=== PATIENT | female | born 1980 | race Two or more races ===

== ENCOUNTER 2017-04-21 16:44 | Emergency (ER) | payer MEDICARE, OTHER ==
[~2017-04-21 16:44] MED LIST: ALPR0.5T PO; AMIT50TA PO; AMITRIPTYLINE PO; ATOR20TA PO; BUPR100T7 PO; BUSP5TAB PO; CELE100C PO; CETI10TA22 PO; CHOL100017 PO; CHOL500016 PO; CLARITIN PO; CYCL-331 PO; CYMBALTA PO; DIAZ5TAB PO; DIPH25CA58 PO; DOCU-109 PO; DULO60CA6 PO; ESOM40CA PO; ESZO1TAB8 PO; ESZO3TAB28 PO; FEXO180T81 PO; GABA800T2 PO; HYDR-79 PO; HYDR1TAB12 PO; HYDR453.3 TP; HYDR45CR TP; HYDR50TA PO; LEVE500T56 PO; LEVO100T PO; LEVO175T5 PO; LEVO200T PO; LIDO700A4 TP; LISI-338 PO; LISI10TA2 PO; LISI1TAB3 PO; METF500T4 PO; MORP15TA PO; MORP30TA83 PO; NICO1PAT21 TD; ORPH-16 PO; OXYC-323 PO; PATADAY OP; POLY17PO5 PO; PRAZ5CAP PO; PRAZ5CAP2 PO; PROC10TA PO; PROC10TA57 PO; PROM50SU6 RC; PROP15DR40 EACHEYE; RANI150T6 PO; REFRESH PLUS OP; SENN8.6T99 PO; SIMV20TA PO; SULF1TAB24 PO; SUMA25TA3 PO; SYNTHROID PO; TAMS0.4C97 PO; TIZA4TAB PO; TOPI100T42 PO; TRIA15CR50 TP; VENL150C PO; VITAMIN D3 PO; WARF1TAB7 PO; WARF1TAB74 PO; WARF2TAB7 PO; WARF6TAB7 PO; ZOLP5TAB PO; [UNRECOGNIZED DRUG - CODE] PO; norflex PO
--- NOTE | 2017-04-21 17:13 | PHYS DOC ---
Past History Past Medical History: Cancer, Diverticulitis, Diabetes, High Cholesterol, Hypertension, Migraines, Seizure, UTI, Other Additional Past Medical Histor: chronic right upper extremity edema, chronic elevated CK Past Surgical History: Colectomy, Hysterectomy, Oophorectomy, Other Smoking: Less than 1pk/day Alcohol Use: None Drug Use: Marijuana Adult General Chief Complaint Chief Complaint: ABDOMINAL PAIN HPI HPI This is a pleasant 37-year-old female who suffered from a history of thyroid cancer required chemotherapy radiation therapy local excision, ovarian cancer requiring localization total abdominal hysterectomy and chemotherapy, and brain cancer that required local excision. She's also had a history of diabetes, Marfucci Syndrome, chronic intermittent migraines, chronic abdominal pain with radiculitis and local bowel resection, seizure disorder on Topamax, she is also had a history of pulmonary embolism presently on daily Coumadin therapy and daily marijuana abuse. She presents today with right lower left lower quadrant abdominal pain it's progressively gotten worse over last 3 days. With her history of diverticulitis with local bowel resection after speaking with her GI doctor who could not get her until June, patient decided to come into the ER to see if that she be evaluated for her abdominal pain. She denies any nausea, vomiting, diarrhea or fevers. She has had some subjective chills and increasing pain with movements of the lower abdomen and food. She denies any UTI symptoms like dysuria urgency or frequency. She denies any sick contacts, trauma, antibiotic use, recent consumption of raw food, handling of poultry or reptiles. my abdominal pain differential includes but not limited to ectopic , UTI, pyonephritis, cholecystitis, cholelithiasis, pancreatitis, appendicitis, small bowel obstruction, large bowel obstruction, diverticulosis, Diverticulum, intussusception, volvulus, irritable bowel disease, Crohn's or ulcerative colitis, considered upon arrival. Review of Systems Review of Systems Constitutional: Denies fever does describe some chronic chills. Eyes: Denies change in visual acuity, redness, or eye pain [] HENT: Denies nasal congestion or sore throat [] Respiratory: Denies cough or shortness of breath [] Cardiovascular: No additional information not addressed in HPI [] GI: Patient complains of lower abdominal pain, no nausea no vomiting no diarrhea no loose stools. : Denies dysuria or hematuria [] Musculoskeletal: She complains of chronic lymphedema of her lower and upper legs and arms. Integument: Denies rash or skin lesions [] Neurologic: Denies headache, focal weakness or sensory changes [] Endocrine: Denies polyuria or polydipsia [] Allergies Allergies Allergies Coded Allergies Type Severity Reaction Last Updated Verified Cephalexin Monohydrate Allergy Intermediate 09/25/15 Yes enoxaparin sodium Allergy Intermediate 09/25/15 Yes Physical Exam Physical Exam Constitutional: Well developed, well nourished, patient somewhat obese in no acute distress nontoxic in appearance. She has considerable lymphedema of the right upper extremity and lower extremities bilaterally. HENT: Normocephalic, atraumatic, bilateral external ears normal, oropharynx moist, no oral exudates, nose normal. [] Eyes: PERRLA, EOMI, conjunctiva normal, no discharge. [] Neck: Normal range of motion, no tenderness, supple, no stridor. [] Cardiovascular:Heart rate regular rhythm, no murmur [] Lungs & Thorax: Bilateral breath sounds clear to auscultation [] Abdomen: He does have marked tenderness to palpation of the right lower and left lower quadrants lower abdomen. There is no masses no pulsatile masses no guarding rebound or organomegaly. Skin: Warm, dry, no erythema, no rash. [] Back: No tenderness, no CVA tenderness. [] Extremities: No tenderness, no cyanosis, no clubbing, ROM intact, patient indicates lymphedema of the right upper extremity and lower extremity's bilaterally. Her skin is warm with brisk capillary refill +2 peripheral pulses also brisk at +2. Neurologic: Alert and oriented X 3, normal motor function, normal sensory function, no focal deficits noted. [] Psychologic: Affect normal, judgement normal, mood normal. Patient seems somewhat slow to respond to questions although she is very lucid. EKG EKG [] Radiology/Procedures Radiology/Procedures [] Course & Med Decision Making Course & Med Decision Making Pertinent Labs and Imaging studies reviewed. (See chart for details) she presents with lower abdominal pain progressive over the last 3 days or chills and increasing pain with food. With her history of diverticulitis she will need to have a screening appropriate for that etiology. She has had her labs drawn her CT scan has been completed but no other information is return. Care will be turned over to the oncoming physician Dr. Araujo. He see her notes for disposition. : Pt's CT showed multiple fluid filled bowel loops. although radiology states this could be nonspecific or bowel obstruction, her hx is more consistent with diarrhea and colitis causing fluid filled loops. she states she has had 4-5 watery stools. "everytime I eat it goes right through me and makes me cramp". she has a hx of diverticulitis. will start abx. if her bowels stop , abdomen distends, vomiting starts, fever, or any worsening sx, she has been obstructed to return immediately for re-evaluation. she voices understanding of this plan. pt's symptoms had improved prior to discharge [] Dragon Disclaimer Dragon Disclaimer This chart was dictated in whole or in part using Voice Recognition software in a busy, high-work load, and often noisy Emergency Department environment. It may contain unintended and wholly unrecognized errors or omissions. Departure Departure: Impression: Primary Impression: Diarrhea Disposition: HOME, SELF-CARE Condition: IMPROVED Referrals: LEIGH COLLINS (PCP) Patient Instructions: Diarrhea Additional Instructions: eat bland foods such as, chicken broth, apple sauce, bread, bananas, rice. no spicy, fried, greasy foods until diarrhea stops. cipro and flagyl for stomach. zofran for nausea and hydrocodone for pain. return immediately if fever, vomiting, abdominal swelling, or any other concerns. call your doctor today for a follow-up appointment in 3-4 days. Scripts Metronidazole (FLAGYL) 500 Mg Tablet 1 TAB PO BID, #14 TAB Prov: SUSANA ARAUJO MD 04/21/17 Ondansetron (ZOFRAN ODT) 4 Mg Tab.rapdis 1 TAB SL Q8HRS, #15 TAB Prov: SUSANA ARAUJO MD 04/21/17 Hydrocodone Bit/Acetaminophen (HYDROCODONE-APAP 7.5-325 ) 1 Each Tablet 1 TAB PO PRN Q6HRS Y for PAIN, #20 TAB 0 Refills Prov: SUSANA ARAUJO MD 04/21/17 Ciprofloxacin Hcl (CIPRO) 500 Mg Tablet 1 TAB PO BID, #14 TAB Prov: SUSANA ARAUJO MD 04/21/17 ARMINDA REZA MD Apr 21, 2017 17:13 SUSANA ARAUJO MD Apr 21, 2017 18:39
[2017-04-21] MEDS ORDERED: 0.9 % SODIUM CHLORIDE 10 ML DISP.SYRIN. IV PRN (17:15)
[2017-04-21] MEDS ORDERED: fentaNYL PF 100 MCG/2 ML VIAL IV PRN (17:15)
[2017-04-21] MEDS ORDERED: IV NORMAL SALINE 1,000ML 1,000 ML IV SCH (17:25)
[2017-04-21] MEDS ORDERED: ONDANSETRON PF 4 MG/2 ML VIAL. IV ONE (17:25)
[2017-04-21 17:32] LABS: BASO % 0 % (0-3); EOS # 0.3 x10^3/uL (0.0-0.7); EOS % 2 % (0-3); HEMOGLOBIN 13.1 g/dL (12.0-15.5); LYMPH % 29 % (24-48); MEAN CORPUSCULAR HEMOGLOBIN 30 pg (25-35); MEAN CORPUSCULAR HGB CONC 34 g/dL (31-37); MEAN CORPUSCULAR VOLUME 90 fL (79-100); MONO # 0.8 x10^3/uL (0.0-1.1); MONO % 6 % (0-9); NEUT # 8.6 x10^3uL (1.8-7.7); NEUT % 63 % (31-73); PLATELET COUNT 297 x10^3/uL (140-400); RED BLOOD COUNT 4.35 x10^6/uL (3.50-5.40); RED CELL DISTRIBUTION WIDTH 15.5 % (11.5-14.5); WHITE BLOOD COUNT 13.6 x10^3/uL (4.0-11.0)
[2017-04-21 17:41] LABS: ALBUMIN 3.5 g/dL (3.4-5.0); CALCIUM 8.7 mg/dL (8.5-10.1); DIRECT BILIRUBIN 0.1 mg/dL (0.0-0.2); GFR 62.7; POTASSIUM 3.6 mmol/L (3.5-5.1); TOTAL BILIRUBIN 0.2 mg/dL (0.2-1.0); TOTAL PROTEIN 7.7 g/dL (6.4-8.2)
[2017-04-21] MEDS ORDERED: CONTRAST GIVEN MC PRN (17:45)
[2017-04-21] MEDS ORDERED: IOHEXOL 300 MG/ML 75 ML VIAL. IV ONE (17:45)
[2017-04-21 18:01] LABS: AMPHETAMINE/METHAMPHETAMINE NEG (NEG); BARBITURATES NEG (NEG); BENZODIAZEPINES POS (NEG); CANNABINOIDS POS (NEG); COCAINE NEG (NEG); METHADONE NEG (NEG); OPIATES NEG (NEG); PHENCYCLIDINE NEG (NEG)
[2017-04-21 18:09] LABS: BACTERIA,URINE 0 /HPF (0-FEW); BILIRUBIN,URINE NEG (NEG); CLARITY,URINE CLEAR; COLOR,URINE YELLOW; GLUCOSE,URINE NEG (NEG); NITRITE,URINE NEG (NEG); RBC,URINE RARE /HPF (0-2); SQUAMOUS EPITHELIAL CELL,UR FEW /LPF; UROBILINOGEN,URINE 0.2 mg/dL (0.2 mg/dL)
--- NOTE | 2017-04-21 18:15 | RAD ---
Indication: Ovarian carcinoma. Patient currently complains of right lower quadrant pain for 3 days as well as low-grade fever. Axial imaging through the abdomen and pelvis was performed after the administration of intravenous contrast. One or more of the following individualized dose reduction techniques were utilized for this examination: 1. Automated exposure control 2. Adjustment of the mA and/or kV according to patient size 3. Use of iterative reconstruction technique Comparison is made with prior CT from 09/25/2015. Imaging through the lung bases does show several noncalcified nodules, all appear similar to prior exam. There is generalized low density throughout the liver consistent with fatty infiltration. No discrete mass is detected. The gallbladder is surgically absent. The pancreas and spleen are unremarkable. Minimal nodularity involving the left adrenal gland appears stable. There is also some nodularity of the right adrenal gland appears to be fairly stable. The kidneys are unremarkable. Aorta is nonaneurysmal. Postsurgical changes involving several bowel loops in the midline of the mid abdomen are noted and similar to prior exam. There is some mild fluid-filled distention of several small bowel loops in the central abdomen. This is nonspecific. There is no ascites. No free air or fluid collection is identified. Mild nonspecific inflammatory stranding in the right abdomen and right perirenal region is similar to prior exam. The bladder is unremarkable. No definite abdominal or pelvic lymphadenopathy is seen. IMPRESSION: There is mild fluid-filled distention of small bowel loops in the central abdomen. Early small bowel obstruction cannot be entirely excluded and continued progress films are recommended. There is no free air, bowel wall thickening or abscess identified. Electronically signed by: Chandana Washington MD (04/21/2017 6:12 PM) [facility]
[2017-04-21] MEDS ORDERED: HYDR-2762 PO (18:39)
[2017-04-21] MEDS ORDERED: METR500T PO (18:39)
[2017-04-21] MEDS ORDERED: ONDA4TAB10 SL (18:39)
[2017-04-21] MEDS ORDERED: CIPR500T94 PO (18:39)
[2017-04-21 18:54] VITALS: BP 110/76
== END 2017-04-21 18:59 | disposition home or self-care (01) ==
LOC: ER 16:44
DX: R19.7 Diarrhea, unspecified (principal); E11.9 Type 2 diabetes mellitus without complications; E78.00 Pure hypercholesterolemia, unspecified; I10 Essential (primary) hypertension; G89.29 Other chronic pain; G40.909 Epilepsy, unspecified, not intractable, without status epilepticus; F12.10 Cannabis abuse, uncomplicated; Z85.850 Personal history of malignant neoplasm of thyroid; Z86.711 Personal history of pulmonary embolism; F17.200 Nicotine dependence, unspecified, uncomplicated; Z88.1 Allergy status to other antibiotic agents; Z88.8 Allergy status to other drugs, medicaments and biological substances
CPT/HCPCS: 99285; J2405; J3010; 36415; 74177; 80048; 80076; 80307; 81001; 83605; 83690; 85027; 96361; 96374; 96375; Q9967; G0479; J7030

== ENCOUNTER 2017-04-24 10:08 | Inpatient (IN) | payer MEDICARE, OTHER ==
[~2017-04-24] VITALS: Ht 170.2 cm; Wt 108.5 kg
[~2017-04-24 10:08] MED LIST changes: +CIPR500T94 PO; +HYDR-2762 PO; +METR500T PO; +ONDA4TAB10 SL
--- NOTE | 2017-04-24 10:50 | PHYS DOC ---
Past History Past Medical History: Other Additional Past Medical Histor: chronic right upper extremity edema, chronic elevated CK Past Surgical History: Other Smoking: Less than 1pk/day Alcohol Use: Occasionally Drug Use: None Adult General Chief Complaint Chief Complaint: ABDOMINAL PAIN HPI HPI Patient is a 37-year-old female with a history of colon resection for diverticulitis in 2010, returns to the ED with continued abdominal pain after being seen and treated on 04/21. That day, she was seen with the complaint of 3 days of left lower quadrant abdominal pain getting worse, she was evaluated and started on Cipro and Flagyl. She did start the antibiotics that night and has taken them as directed on 04/22 and 04/23. She's had nausea but no vomiting. Her pain is getting worse and now its more generalized. She did have pain more in the suprapubic and left lower quadrant area and now has pain across her lower abdomen and across her upper abdomen. The pain does feel like diverticulitis to her. She also has noted "pus" in her stool. Patient has had hysterectomy and BSO. Patient takes warfarin for history of DVT and PE Patient gets her chronic care at [facility]. Review of Systems Review of Systems Constitutional: She has had chills Respiratory: Denies cough or shortness of breath [] Cardiovascular: Denies chest pain GI: As in history of present illness : Denies stability of Musculoskeletal: Denies back pain or joint pain [] Integument: Denies rash or skin lesions [] Neurologic: Denies headache, focal weakness or sensory changes [] Current Medications Current Medications Current Medications Medications (Trade) Dose Ordered Sig/Pau Start Time Stop Time Status Last Admin Dose Admin Fentanyl Citrate (Fentanyl 2ml Vial) 50 mcg PRN Q15MIN PRN 04/24/17 10:45 04/25/17 10:44 Sodium Chloride 1,000 ml @ 100 mls/hr Q10H 04/24/17 10:33 04/24/17 20:32 Allergies Allergies Allergies Coded Allergies Type Severity Reaction Last Updated Verified Cephalexin Monohydrate Allergy Intermediate 09/25/15 Yes enoxaparin sodium Allergy Intermediate 09/25/15 Yes Physical Exam Physical Exam Constitutional: Obese female, alert, mentating normally, vital signs stable, no acute distress HENT: Normocephalic, atraumatic, bilateral external ears normal, nose normal. [ ] Eyes: conjunctiva normal, no discharge. [] Neck: Normal range of motion, no stridor. [] Cardiovascular:Heart rate regular rhythm, no murmur [] Lungs & Thorax: Bilateral breath sounds clear to auscultation [] Abdomen: Bowel sounds normal, soft, nondistended, no masses, no pulsatile masses. Tenderness to palpation suprapubic and bilateral lower quadrants, and across the upper abdomen. Tenderness is not localized. There is no rebound or guarding. Skin: Warm, dry, no erythema, no rash. [] Extremities: No tenderness, no cyanosis, no clubbing, ROM intact, no edema. [] Neurologic: Alert and oriented X 3, normal motor function, normal sensory function, no focal deficits noted. [] Current Patient Data Vital Signs Vital Signs Date Time Temp Pulse Resp B/P (MAP) Pulse Ox O2 Delivery O2 Flow Rate FiO2 04/24/17 10:25 97.6 90 20 96 Room Air EKG EKG [] Radiology/Procedures Radiology/Procedures [] Course & Med Decision Making Course & Med Decision Making Pertinent Labs and Imaging studies reviewed. (See chart for details) 37-year-old female who has a history of partial colon resection for diverticulitis, who was seen 2-1/2 days ago and started on Cipro and Flagyl for presumed diverticulitis, he returns because her pain is worsening, she is getting worse instead of better. It sounds like she has failed outpatient antibiotics. She did fill her prescriptions and has been taking them. I discussed with the patient that we may need to admit her to the hospital for IV antibiotics and she is agreeable to that plan. We will start some IV fluids, IV pain medicine, check some labs. I am reluctant to CT her again because she just had a CT scan 2 days ago. Her exam at this time does not suggest a localized process. Labs show no leukocytosis. INR is elevated at 4.0. Electrolytes unremarkable. I discussed the case with Dr. Mckeon, who will admit the patient to the hospital for failed outpatient therapy for diverticulitis. I wrote bridge orders. [] Dragon Disclaimer Dragon Disclaimer This chart was dictated in whole or in part using Voice Recognition software in a busy, high-work load, and often noisy Emergency Department environment. It may contain unintended and wholly unrecognized errors or omissions. Departure Departure: Impression: Primary Impression: Abdominal pain Additional Impression: Diverticulitis Disposition: 09 ADMITTED INPATIENT Admitting Physician: Joanie Mckeon Condition: STABLE Referrals: LEIGH COLLINS (PCP) Problem Qualifiers CHEYENNE HOLM MD Apr 24, 2017 10:50
[2017-04-24 10:52] LABS: BASO # 0.1 x10^3/uL (0.0-0.2); BASO % 1 % (0-3); EOS # 0.2 x10^3/uL (0.0-0.7); EOS % 2 % (0-3); HEMATOCRIT 37.2 % (36.0-47.0); HEMOGLOBIN 12.5 g/dL (12.0-15.5); LYMPH # 3.1 x10^3/uL (1.0-4.8); LYMPH % 31 % (24-48); MEAN CORPUSCULAR HEMOGLOBIN 30 pg (25-35); MEAN CORPUSCULAR HGB CONC 34 g/dL (31-37); MEAN CORPUSCULAR VOLUME 90 fL (79-100); MONO # 0.7 x10^3/uL (0.0-1.1); MONO % 7 % (0-9); NEUT # 6.2 x10^3uL (1.8-7.7); NEUT % 61 % (31-73); PLATELET COUNT 271 x10^3/uL (140-400); RED BLOOD COUNT 4.14 x10^6/uL (3.50-5.40); RED CELL DISTRIBUTION WIDTH 16.3 % (11.5-14.5); WHITE BLOOD COUNT 10.2 x10^3/uL (4.0-11.0)
[2017-04-24] MEDS: IV NORMAL SALINE 1,000ML 1,000 ML IV SCH ×2 (10:55→14:36)
[2017-04-24] MEDS: fentaNYL PF 100 MCG/2 ML VIAL IV PRN ×2 (10:56→13:54)
[2017-04-24 11:24] LABS: ALBUMIN 3.6 g/dL (3.4-5.0); ALBUMIN/GLOBULIN RATIO 0.9 (1.0-1.7); CALCIUM 8.8 mg/dL (8.5-10.1); CREATININE 0.9 mg/dL (0.6-1.0); GFR 70.8; TOTAL BILIRUBIN 0.2 mg/dL (0.2-1.0); TOTAL PROTEIN 7.8 g/dL (6.4-8.2)
[2017-04-24 12:17] LABS: AMORPHOUS SEDIMENT,UR PRESENT /HPF; BACTERIA,URINE 0 /HPF (0-FEW); BILIRUBIN,URINE NEG (NEG); CLARITY,URINE CLOUDY; COLOR,URINE YELLOW; GLUCOSE,URINE NEG (NEG); NITRITE,URINE NEG (NEG); RBC,URINE 0 /HPF (0-2); SQUAMOUS EPITHELIAL CELL,UR OCC /LPF; UROBILINOGEN,URINE 0.2 mg/dL (0.2 mg/dL); WBC,URINE RARE /HPF (0-4)
[2017-04-24 12:35] VITALS: BP 109/77
[2017-04-24 12:50] VITALS: BP 109/77
[2017-04-24 15:04] VITALS: BP 121/86
--- NOTE | 2017-04-24 15:04 | RAD ---
Indication right-sided abdominal pain A single view of the chest was obtained as well as flat and upright films of the abdomen. The chest is compared to an exam September 28, 2016. Note is made of a CT examination of the abdomen and pelvis 04/21/2017. The heart and pulmonary vessels appear normal. There are occasional nodular opacities in the right lower lobe similar to previous plain film examination. There are healed right rib fractures inferolaterally. There is no free air. The abdominal gas pattern is normal. Clips are seen in the gallbladder fossa. There are multiple calcifications compatible with phleboliths in the pelvis. There is mild scoliosis. IMPRESSION: No acute finding seen in the chest or abdomen on plain film
[2017-04-24] MEDS ORDERED: LEVO200T PO (15:34)
[2017-04-24] MEDS ORDERED: GABA600T2 PO ×2 (15:34→15:35)
[2017-04-24] MEDS ORDERED: WARF4TAB7 PO (15:35)
[2017-04-24] MEDS ORDERED: KETO15CR2 TP (15:35)
[2017-04-24] MEDS ORDERED: VENL225T PO (15:35)
[2017-04-24] MEDS ORDERED: LURA40TA PO (15:35)
[2017-04-24] MEDS ORDERED: ERGO500027 PO (15:35)
[2017-04-24] MEDS ORDERED: EZET10TA18 PO (15:35)
[2017-04-24] MEDS ORDERED: CARB1DRO OU (15:35)
[2017-04-24] MEDS ORDERED: TRAZ-90 PO (15:35)
[2017-04-24] MEDS ORDERED: RANI150T2 PO (15:35)
[2017-04-24] MEDS ORDERED: PRAZ5CAP2 PO (15:35)
[2017-04-24] MEDS ORDERED: KETO5DRO3 EACHEYE (15:35)
[2017-04-24] MEDS ORDERED: SENNOSIDES 8.6 MG TABLET PO PRN (15:45)
[2017-04-24] MEDS ORDERED: TRIAMCINOLONE ACETONIDE 0.5% TOPICAL CREAM 15GM TUBE. TP PRN (15:45)
[2017-04-24] MEDS ORDERED: KETOROLAC 30 MG/ML VIAL. IV PRN (15:45)
[2017-04-24] MEDS ORDERED: LIDOCAINE (700MG/PATCH) PATCH. TP PRN (15:45)
[2017-04-24] MEDS ORDERED: ALPRAZolam 0.25 MG TABLET PO PRN (15:45)
[2017-04-24] MEDS ORDERED: diazePAM 5 MG TABLET PO PRN (15:45)
[2017-04-24] MEDS ORDERED: NON FORMULARY ITEM (Propylene Glycol/Peg 400 (Systane 0.3-0.4% Eye Drops) 1 DROP) EACHEYE PRN (15:45)
[2017-04-24] MEDS ORDERED: tiZANidine 4 MG TABLET. PO PRN (15:45)
[2017-04-24] MEDS ORDERED: DOCUSATE SODIUM 100 MG CAPSULE PO PRN (15:45)
[2017-04-24] MEDS ORDERED: KETOCONAZOLE 2% TOPICAL CREAM 30GM TUBE. TP PRN (15:45)
[2017-04-24] MEDS ORDERED: POLYVINYL ALCOHOL/POVIDONE/PF OPHTH SOLUTION DROPERETTE. OU PRN (16:15)
[2017-04-24] MEDS: KETOROLAC 30 MG/ML VIAL. IV PRN (16:21)
[2017-04-24] MEDS ORDERED: SUMAtriptan SUCCINATE 50 MG TABLET PO PRN (16:30)
[2017-04-24] MEDS: PROCHLORPERAZINE 10 MG TABLET. PO PRN (17:13)
[2017-04-24] MEDS: metFORMIN 500 MG TABLET PO SCH (17:13)
[2017-04-24 19:49] VITALS: BP 136/97
[2017-04-24] MEDS: metroNIDAZOLE 500 MG TABLET PO SCH (21:08)
[2017-04-24] MEDS: traZODone 150 MG TABLET. PO SCH (21:08)
[2017-04-24] MEDS: TOPIRAMATE 100 MG TABLET. PO SCH (21:09)
[2017-04-24] MEDS: ONDANSETRON ODT 4 MG TAB.RAPDIS PO SCH (21:09)
[2017-04-24] MEDS: CETIRIZINE HCL 10 MG TABLET PO SCH (21:09)
[2017-04-24] MEDS: FAMOTIDINE 20 MG TABLET PO SCH (21:09)
[2017-04-24] MEDS: CIPROFLOXACIN HCL 500 MG TABLET PO SCH (21:09)
[2017-04-24] MEDS: HYDROcodone/APAP 7.5/325MG 1 TAB TABLET PO PRN (21:09)
[2017-04-25 00:10] VITALS: BP 122/86
[2017-04-25] MEDS: KETOROLAC 30 MG/ML VIAL. IV PRN ×2 (00:20→14:46)
--- NOTE | 2017-04-25 00:54 | ACF ---
Admission Criteria Forms ABDOMINAL PAIN Clinical Indications for Admission to Inpatient Care ( rincon/check or initial the applicable condition/criteria): Admission is indicated for ANY ONE of the following (1)(2)(3)(4)(5)(6): [ ]I. Surgery needed that cannot be performed on ambulatory basis [ ]II. Peritoneal signs present (eg, rebound tenderness, rigidity) [ ]III. Evaluation requires patient to not eat or drink for extended period ( eg, more than 24 hours). [X]IV. Inpatient admission required[B] rather than observation care (see Abdominal Pain: Observation Care guideline as appropriate) because of ANY ONE of the following(7)(8)(9): [ ] a) Hemodynamic instability [X]b) Severe pain requiring acute inpatient management [ ]c) Identification of etiology or finding that requires inpatient care (eg, aortic dissection, free air,bowel ischemia)(10) [ ]d) Absent bowel sounds with complete ileus (11) [ ]e) Signs of intestinal obstruction[C] [ ]f) Suspected toxic megacolon [ ]g) Severe electrolyte abnormalities requiring inpatient care [ ]h) High fever or infection requiring inpatient admission as indicated by ANY ONE of the following (12)(13): [ ]i) Appropriate outpatient or observation care antimicrobial treatment unavailable, not effective, or not feasible [ ]ii) Documented bacteremia [ ]iii) Temperature greater than 104.9 degrees F (40.5 degrees C) (oral) [ ]iv) Temperature greater than 103.1 degrees F (39.5 degrees C) ( oral) or less than 96.8 degrees F (36 degrees C) (rectal) that does not respond to all emergency treatment measures [ ]i) IV fluid required rather than oral rehydration to replace significant ongoing (eg, for greater than 24 hours) losses (greater than 3 L/m2 per day)(14)(15) [ ]j) Percutaneous or open drainage (eg, abscess, biliary tract) procedures [ ]k) Parenteral nutrition regimen that must be implemented on inpatient basis [X]l) Other condition, treatment, or monitoring requiring inpatient admission Extended stay beyond goal length of stay may be needed for (1)(3)(4)(10)(16): [ ]a) Surgery (e.g., colectomy, revascularization procedure) [ ]b) Persistent abdominal pain with suspected intra-abdominal process [ ]c) Diagnosed condition requiring continued stay (e.g., pancreatitis, complicated diverticulitis) The original [facility] content created by [facility] has been revised. The portions of the content which have been revised are identified through the use of italic text, and [facility] has neither reviewed nor approved the modified material.All other unmodified content is copyright [facility]. Please see references footnoted in the original [facility] edition 2014 Admission Criteria Met?: Yes COOPER VAZQUEZ Apr 25, 2017 00:54
[2017-04-25] MEDS ORDERED: IV NORMAL SALINE 1,000ML 1,000 ML ONE ×2 (01:27→11:58)
[2017-04-25 05:22] VITALS: BP 127/83
[2017-04-25] MEDS: LEVOTHYROXINE 175 MCG TABLET PO SCH (06:02)
[2017-04-25] MEDS: ONDANSETRON ODT 4 MG TAB.RAPDIS PO SCH ×3 (06:02→20:33)
[2017-04-25] MEDS: LEVOTHYROXINE 50 MCG TABLET PO SCH (06:02)
[2017-04-25 06:54] LABS: BASO % 0 % (0-3); EOS # 0.3 x10^3/uL (0.0-0.7); EOS % 3 % (0-3); HEMATOCRIT 37.7 % (36.0-47.0); HEMOGLOBIN 12.3 g/dL (12.0-15.5); LYMPH # 2.8 x10^3/uL (1.0-4.8); LYMPH % 27 % (24-48); MEAN CORPUSCULAR HEMOGLOBIN 30 pg (25-35); MEAN CORPUSCULAR HGB CONC 33 g/dL (31-37); MEAN CORPUSCULAR VOLUME 91 fL (79-100); MONO # 0.7 x10^3/uL (0.0-1.1); MONO % 7 % (0-9); NEUT # 6.4 x10^3uL (1.8-7.7); NEUT % 63 % (31-73); PLATELET COUNT 264 x10^3/uL (140-400); RED BLOOD COUNT 4.13 x10^6/uL (3.50-5.40); RED CELL DISTRIBUTION WIDTH 16.5 % (11.5-14.5); WHITE BLOOD COUNT 10.1 x10^3/uL (4.0-11.0)
[2017-04-25 07:04] LABS: ALBUMIN 3.1 g/dL (3.4-5.0); ALBUMIN/GLOBULIN RATIO 0.8 (1.0-1.7); CALCIUM 8.2 mg/dL (8.5-10.1); GFR 62.7; MAGNESIUM 1.7 mg/dL (1.8-2.4); POTASSIUM 4.3 mmol/L (3.5-5.1); TOTAL BILIRUBIN 0.2 mg/dL (0.2-1.0); TOTAL PROTEIN 6.9 g/dL (6.4-8.2)
[2017-04-25] MEDS ORDERED: LEVOTHYROXINE SODIUM 225 MCG PO SCH (07:30)
[2017-04-25] MEDS: metroNIDAZOLE 500 MG TABLET PO SCH ×2 (08:36→20:33)
[2017-04-25] MEDS: KETOTIFEN FUMARATE 0.025% OPHT SOLUTION BOTTLE. OU SCH (08:36)
[2017-04-25] MEDS: CIPROFLOXACIN HCL 500 MG TABLET PO SCH ×2 (08:37→20:33)
[2017-04-25] MEDS: LISINOPRIL 10 MG TABLET PO SCH (08:37)
[2017-04-25] MEDS: LURASIDONE 40 MG TABLET. PO SCH (08:37)
[2017-04-25] MEDS: metFORMIN 500 MG TABLET PO SCH ×2 (08:37→17:06)
[2017-04-25] MEDS: FAMOTIDINE 20 MG TABLET PO SCH ×2 (08:37→20:33)
[2017-04-25] MEDS: EZETIMIBE 10 MG TABLET PO SCH (08:37)
[2017-04-25] MEDS: TOPIRAMATE 100 MG TABLET. PO SCH ×2 (08:37→20:33)
[2017-04-25] MEDS: GABAPENTIN 400 MG CAPSULE. PO SCH (08:37)
[2017-04-25] MEDS: PRAZOSIN 5 MG CAPSULE. PO SCH (08:38)
[2017-04-25] MEDS: VENLAFAXINE 75 MG TABLET. PO SCH (08:38)
[2017-04-25] MEDS: PROCHLORPERAZINE 10 MG TABLET. PO PRN (08:50)
[2017-04-25] MEDS: oxyCODONE/APAP 5/325 1 TAB TABLET PO PRN (08:50)
[2017-04-25] MEDS ORDERED: WARFARIN 4 MG TABLET. PO SCH (09:00)
[2017-04-25] MEDS ORDERED: PNEUMOC CONJ VACC 23-VALENT 0.5 ML VIAL. VAX IM ONE (09:00)
[2017-04-25 10:29] VITALS: BP 135/95
[2017-04-25] MEDS: GABAPENTIN 300 MG CAPSULE. PO SCH (12:02)
[2017-04-25 14:18] VITALS: BP 132/84
[2017-04-25] MEDS ORDERED: POLYVINYL ALCOHOL/POVIDONE/PF OPHTH SOLUTION DROPERETTE. OU PRN (14:56)
--- NOTE | 2017-04-25 17:59 | PDOC ---
PROGRESS NOTES Assessment 1. Acute colitis w/ abdominal pain: Sx's improving modestly. Pt on IV abx. Xray did not show SBO or ileus. Pt has a hx of colectomy due to diverticulitis. No colonoscopy since the surgery. Recommend f/u with GI as outpatient for f/u endoscopy. Pt has not had a BM in several days, will treat constipation and hopefully will improve her overall symptoms. 2. Hx of seizures: None recently. Pt will continue home meds. 3. Hx of DVT: Continue warfarin, INR now down from 4 to 3. Will have pharmacy manage. 4. Hypothyroidism: Continue home meds. 5. Disp: Hopeful for d/c in 1-2 days. Problems: Plan of Care: see other orders Subjective Pt states she is feeling better, but is still having nonspecific abdominal pain , worse w/ eating. Denies BM since Thursday. Denies fever, SOA, CP, leg swelling, or excessive bleeding/bruising. Pt is fully ambulatory. Objective Vital Signs Date Time Temp Pulse Resp B/P (MAP) Pulse Ox O2 Delivery O2 Flow Rate FiO2 04/25/17 14:18 98.1 70 20 132/84 (100) 92 Room Air Intake and Output 04/25/17 07:00 Intake Total 893.22 ml Output Total 700 ml Balance 193.22 ml Intake Oral 540 ml IV Total 353.22 ml Output Urine Total 700 ml Abdomen: Normal bowel sounds, Soft, Other (Mild diffuse TTP) Heart: Regular rate, Normal S1, Normal S2, No murmurs Extremities: No edema, Normal pulses, No tenderness/swelling General: Alert, Oriented X3, Cooperative, No acute distress HEENT: Atraumatic, PERRLA, EOMI, Mucous membr. moist/pink Lungs: Clear to auscultation, Normal air movement Neck: No JVD, No LAD Neuro: Normal speech, Strength at 5/5 X4 ext, Normal tone Psych/Mental Status: Mental status NL, Mood NL Skin: No rashes Review of Relevant I have reviewed the following items terrell (where applicable) has been applied. Labs Laboratory Tests Test 04/24/17 10:40 04/24/17 11:35 04/24/17 16:23 04/24/17 20:22 White Blood Count 10.2 x10^3/uL (4.0-11.0) Red Blood Count 4.14 x10^6/uL (3.50-5.40) Hemoglobin 12.5 g/dL (12.0-15.5) Hematocrit 37.2 % (36.0-47.0) Mean Corpuscular Volume 90 fL (79-100) Mean Corpuscular Hemoglobin 30 pg (25-35) Mean Corpuscular Hemoglobin Concent 34 g/dL (31-37) Red Cell Distribution Width 16.3 % (11.5-14.5) Platelet Count 271 x10^3/uL (140-400) Neutrophils (%) (Auto) 61 % (31-73) Lymphocytes (%) (Auto) 31 % (24-48) Monocytes (%) (Auto) 7 % (0-9) Eosinophils (%) (Auto) 2 % (0-3) Basophils (%) (Auto) 1 % (0-3) Neutrophils # (Auto) 6.2 x10^3uL (1.8-7.7) Lymphocytes # (Auto) 3.1 x10^3/uL (1.0-4.8) Monocytes # (Auto) 0.7 x10^3/uL (0.0-1.1) Eosinophils # (Auto) 0.2 x10^3/uL (0.0-0.7) Basophils # (Auto) 0.1 x10^3/uL (0.0-0.2) Prothrombin Time 41.3 SEC (9.4-11.4) Prothromb Time International Ratio 4.0 (0.9-1.1) Sodium Level 139 mmol/L (136-145) Potassium Level 4.0 mmol/L (3.5-5.1) Chloride Level 106 mmol/L (98-107) Carbon Dioxide Level 26 mmol/L (21-32) Anion Gap 7 (6-14) Blood Urea Nitrogen 8 mg/dL (7-20) Creatinine 0.9 mg/dL (0.6-1.0) Estimated GFR (Cockcroft-Gault) 70.8 BUN/Creatinine Ratio 9 (6-20) Glucose Level 112 mg/dL (70-99) Calcium Level 8.8 mg/dL (8.5-10.1) Total Bilirubin 0.2 mg/dL (0.2-1.0) Aspartate Amino Transf (AST/SGOT) 19 U/L (15-37) Alanine Aminotransferase (ALT/SGPT) 39 U/L (14-59) Alkaline Phosphatase 98 U/L (46-116) Total Protein 7.8 g/dL (6.4-8.2) Albumin 3.6 g/dL (3.4-5.0) Albumin/Globulin Ratio 0.9 (1.0-1.7) Lipase 199 U/L (73-393) Urine Collection Type Unknown Urine Color Yellow Urine Clarity Cloudy Urine pH 8.0 Urine Specific [place] 1.015 Urine Protein Neg (NEG-TRACE) Urine Glucose (UA) Neg mg/dL (NEG) Urine Ketones (Stick) Neg mg/dL (NEG) Urine Blood Neg (NEG) Urine Nitrite Neg (NEG) Urine Bilirubin Neg (NEG) Urine Urobilinogen Dipstick 0.2 mg/dL (0.2 mg/dL) Urine Leukocyte Esterase Neg (NEG) Urine RBC 0 /HPF (0-2) Urine WBC Rare /HPF (0-4) Urine Squamous Epithelial Cells Occ /LPF Urine Amorphous Sediment Present /HPF Urine Bacteria 0 /HPF (0-FEW) Glucose (Fingerstick) 141 mg/dL (70-99) 90 mg/dL (70-99) Test 04/25/17 06:13 White Blood Count 10.1 x10^3/uL (4.0-11.0) Red Blood Count 4.13 x10^6/uL (3.50-5.40) Hemoglobin 12.3 g/dL (12.0-15.5) Hematocrit 37.7 % (36.0-47.0) Mean Corpuscular Volume 91 fL (79-100) Mean Corpuscular Hemoglobin 30 pg (25-35) Mean Corpuscular Hemoglobin Concent 33 g/dL (31-37) Red Cell Distribution Width 16.5 % (11.5-14.5) Platelet Count 264 x10^3/uL (140-400) Neutrophils (%) (Auto) 63 % (31-73) Lymphocytes (%) (Auto) 27 % (24-48) Monocytes (%) (Auto) 7 % (0-9) Eosinophils (%) (Auto) 3 % (0-3) Basophils (%) (Auto) 0 % (0-3) Neutrophils # (Auto) 6.4 x10^3uL (1.8-7.7) Lymphocytes # (Auto) 2.8 x10^3/uL (1.0-4.8) Monocytes # (Auto) 0.7 x10^3/uL (0.0-1.1) Eosinophils # (Auto) 0.3 x10^3/uL (0.0-0.7) Basophils # (Auto) 0.0 x10^3/uL (0.0-0.2) Prothrombin Time 31.3 SEC (9.4-11.4) Prothromb Time International Ratio 3.0 (0.9-1.1) Sodium Level 142 mmol/L (136-145) Potassium Level 4.3 mmol/L (3.5-5.1) Chloride Level 109 mmol/L (98-107) Carbon Dioxide Level 29 mmol/L (21-32) Anion Gap 4 (6-14) Blood Urea Nitrogen 10 mg/dL (7-20) Creatinine 1.0 mg/dL (0.6-1.0) Estimated GFR (Cockcroft-Gault) 62.7 BUN/Creatinine Ratio 10 (6-20) Glucose Level 101 mg/dL (70-99) Calcium Level 8.2 mg/dL (8.5-10.1) Magnesium Level 1.7 mg/dL (1.8-2.4) Total Bilirubin 0.2 mg/dL (0.2-1.0) Aspartate Amino Transf (AST/SGOT) 22 U/L (15-37) Alanine Aminotransferase (ALT/SGPT) 36 U/L (14-59) Alkaline Phosphatase 87 U/L (46-116) Total Protein 6.9 g/dL (6.4-8.2) Albumin 3.1 g/dL (3.4-5.0) Albumin/Globulin Ratio 0.8 (1.0-1.7) Medications Current Medications Fentanyl Citrate (Fentanyl 2ml Vial) 50 mcg PRN Q15MIN PRN IV PAIN GREATER THAN 3/10 Last administered on 04/24/17 13:54; Start 04/24/17 at 10:45; Stop at 10:45; Status DC Sodium Chloride 1,000 ml @ 100 mls/hr Q10H IV Last administered on 04/24/17 14:36; Start 04/24/17 at 10:33; Stop 04/24/17 at 20:32; Status DC Ketorolac Tromethamine (Toradol) 30 mg PRN Q6HRS PRN IV PAIN Last administered on 04/25/17 14:46; Start 04/24/17 at 15:30; Stop 04/29/17 at 15:29 Ketorolac Tromethamine (Toradol) 30 mg PRN Q6HRS PRN IV PAIN; Start 04/24/17 at 15:45; Stop 04/24/17 at 16:04; Status DC Alprazolam (Xanax) 0.25 mg PRN Q6HRS PRN PO ANXIETY / AGITATION; Start at 15:45 Cetirizine HCl (ZyrTEC) 10 mg QHS PO Last administered on 04/24/17 21:09; Start 04/24/17 at 21:00 Ciprofloxacin (Cipro) 500 mg BID PO Last administered on 04/25/17 08:37; Start 04/24/17 at 21:00 Diazepam (Valium) 5 mg PRN TID PRN PO ANXIETY / AGITATION; Start 04/24/17 at 15 :45 Docusate Sodium (Colace) 200 mg PRN BID PRN PO CONSTIPATION; Start 04/24/17 at 15:45 EZETIMIBE (Zetia) 10 mg DAILY PO Last administered on 04/25/17 08:37; Start at 09:00 Acetaminophen/ Hydrocodone Bitart (Lortab 7.5/325) 1 tab PRN Q6HRS PRN PO PAIN Last administered on 04/24/17 21:09; Start 04/24/17 at 15:45 Ketoconazole (Nizoral 2% Topical) 1 chau PRN BID PRN TP RASH; Start 04/24/17 at 15:45 Ketotifen Fumarate (Zaditor) 1 drop DAILY OU Last administered on 04/25/17 08: 36; Start 04/25/17 at 09:00 Lidocaine (Lidoderm) 1 patch PRN DAILY PRN TP PAIN; Start 04/24/17 at 15:45 Lisinopril (Prinivil) 10 mg DAILY PO Last administered on 04/25/17 08:37; Start 04/25/17 at 09:00 Metformin HCl (Glucophage) 500 mg BIDWMEALS PO Last administered on 04/25/17 17:06; Start 04/24/17 at 17:00 Metronidazole (Flagyl) 500 mg BID PO Last administered on 04/25/17 08:36; Start 04/24/17 at 21:00 Ondansetron HCl (Zofran Odt) 4 mg Q8HRS PO Last administered on 04/25/17 14:34 ; Start 04/24/17 at 22:00 Oxycodone/ Acetaminophen (Percocet 5/325) 2 tab PRN Q6HRS PRN PO PAIN Last administered on 04/25/17 08:50; Start 04/24/17 at 15:45 Prazosin HCl (Minipress) 5 mg DAILY PO Last administered on 04/25/17 08:38; Start 04/25/17 at 09:00 Prochlorperazine Maleate (Compazine) 10 mg PRN DAILY PRN PO NAUSEA Last administered on 04/25/17 08:50; Start 04/24/17 at 15:45 Sennosides (Senna) 8.6 mg PRN DAILY PRN PO CONSTIPATION; Start 04/24/17 at 15: 45 Tizanidine HCl (Zanaflex) 4 mg PRN TID PRN PO MUSCLE SPASMS; Start 04/24/17 at 15:45 Topiramate (Topamax) 100 mg BID PO Last administered on 04/25/17 08:37; Start 04/24/17 at 21:00 Trazodone HCl (Desyrel) 150 mg HS PO Last administered on 04/24/17 21:08; Start 04/24/17 at 21:00 Triamcinolone Acetonide (Aristocort) 1 chau PRN BID PRN TP RASH; Start 04/24/17 at 15:45 Warfarin Sodium (Coumadin) 8 mg DAILY PO ; Start 04/25/17 at 09:00; Stop at 09:00; Status DC Artificial Tears (Refresh Classic) 1 drop PRN DAILY PRN OU DRY EYE; Start 04/24 at 16:15; Stop 04/25/17 at 14:56; Status DC Non-Formulary Medication 50,000 units WEEKLY PO ; Start 05/01/17 at 09:00; Stop 05/01/17 at 09:00; Status DC Gabapentin (Neurontin) 1,200 mg DAILY PO Last administered on 04/25/17 08:37; Start 04/25/17 at 09:00 Gabapentin (Neurontin) 1,800 mg DAILYWLUN PO Last administered on 04/25/17 12: 02; Start 04/25/17 at 12:00 Non-Formulary Medication 225 mcg DAILYAC PO ; Start 04/25/17 at 07:30; Stop 08/30 at 07:30; Status DC Non-Formulary Medication 1 drop QID PRN EACHEYE DRY EYE; Start 04/24/17 at 15: 45; Stop 04/24/17 at 16:37; Status DC Famotidine (Pepcid) 20 mg BID PO Last administered on 04/25/17 08:37; Start at 21:00 Sumatriptan Succinate (Imitrex) 100 mg PRN DAILY PRN PO HEADACHE; Start at 16:30 Venlafaxine HCl (Effexor) 225 mg DAILY PO Last administered on 04/25/17 08:38 ; Start 04/25/17 at 09:00 Levothyroxine Sodium (Synthroid) 175 mcg DAILY07 PO Last administered on 06:02; Start 04/25/17 at 07:00 Levothyroxine Sodium (Synthroid) 50 mcg DAILY07 PO Last administered on 06:02; Start 04/25/17 at 07:00 Pneumococcal Polyvalent Vaccine (Pneumovax 23) 0.5 ml ONCE ONCE VAX IM Last administered on 04/25/17 08:40; Start 04/25/17 at 09:00; Stop 04/25/17 at 09:02 ; Status DC Warfarin Sodium (Coumadin Per Physician) 1 each PRN DAILY PRN MC SEE COMMENTS; Start 04/24/17 at 17:00 Sodium Chloride 1,000 ml @ As Directed STK-MED ONCE .ROUTE Last administered on 04/25/17 01:27; Start 04/25/17 at 01:27; Stop 04/25/17 at 01:28; Status DC Sodium Chloride 1,000 ml @ As Directed STK-MED ONCE .ROUTE Last administered on 04/25/17t 12:01; Start 04/25/17 at 11:58; Stop 04/25/17 at 11:59; Status DC Artificial Tears (Refresh Classic) 1 drop PRN DAILY PRN OU DRY EYE; Start 04/25 at 14:56 Active Scripts Active Flagyl (Metronidazole) 500 Mg Tablet 1 Tab PO BID Zofran Odt (Ondansetron) 4 Mg Tab.rapdis 1 Tab SL Q8HRS Hydrocodone-Apap 7.5-325 (Hydrocodone Bit/Acetaminophen) 1 Each Tablet 1 Tab PO PRN Q6HRS PRN Cipro (Ciprofloxacin Hcl) 500 Mg Tablet 1 Tab PO BID Reported Zaditor (Ketotifen Fumarate) 5 Ml Drops 1 Drop EACHEYE DAILY Ranitidine Hcl 150 Mg Tablet 150 Mg PO BID LAST DOSE GIVEN: DATE: TIME: NEXT DOSE DUE: DATE: TIME: Zetia (Ezetimibe) 10 Mg Tablet 10 Mg PO DAILY LAST DOSE GIVEN: DATE: TIME: NEXT DOSE DUE: DATE: TIME: Vitamin D2 (Ergocalciferol (Vitamin D2)) 50,000 Unit Capsule 50,000 Units PO WEEKLY LAST DOSE GIVEN: DATE: TIME: NEXT DOSE DUE: DATE: TIME: Trazodone Hcl 100 Mg Tablet 150 Mg PO HS LAST DOSE GIVEN: DATE: TIME: NEXT DOSE DUE: DATE: TIME: Refresh Plus (Carboxymethylcellulose Sodium) 1 Each Droperette 1-2 Drop OU PRN PRN LAST DOSE GIVEN: DATE: TIME: NEXT DOSE DUE: DATE: TIME: Prazosin Hcl 5 Mg Capsule 5 Mg PO DAILY LAST DOSE GIVEN: DATE: TIME: NEXT DOSE DUE: DATE: TIME: Latuda (Lurasidone Hcl) 40 Mg Tablet 40 Mg PO DAILY LAST DOSE GIVEN: DATE: TIME: NEXT DOSE DUE: DATE: TIME: Ketoconazole 15 Gm Cream..g. 1 Chau TP PRN BID PRN LAST DOSE GIVEN: DATE: TIME: NEXT DOSE DUE: DATE: TIME: Venlafaxine Hcl Er (Venlafaxine Hcl) 225 Mg Tab.er.24 225 Mg PO DAILY LAST DOSE GIVEN: DATE: TIME: NEXT DOSE DUE: DATE: TIME: Gabapentin 600 Mg Tablet 1,800 Mg PO DAILYWLUN LAST DOSE GIVEN: DATE: TIME: NEXT DOSE DUE: DATE: TIME: Warfarin Sodium 4 Mg Tablet 2 Tab PO DAILY LAST DOSE GIVEN: DATE: TIME: NEXT DOSE DUE: DATE: TIME: Synthroid (Levothyroxine Sodium) 200 Mcg Tablet 225 Mcg PO DAILYAC LAST DOSE GIVEN: DATE: TIME: NEXT DOSE DUE: DATE: TIME: Gabapentin 600 Mg Tablet 1,200 Mg PO DAILY LAST DOSE GIVEN: DATE: TIME: NEXT DOSE DUE: DATE: TIME: Triamcinolone Acetonide 15 Gm Cream..g. 1 Chau TP BID PRN LAST DOSE GIVEN: DATE: TIME: NEXT DOSE DUE: DATE: TIME: Tizanidine Hcl (Tizanidine HCl) 4 Mg Tablet 4 Mg PO TID PRN LAST DOSE GIVEN: DATE: TIME: NEXT DOSE DUE: DATE: TIME: Systane 0.3-0.4% Eye Drops (Propylene Glycol/Peg 400) 15 Ml Drops 1 Drop EACHEYE QID PRN LAST DOSE GIVEN: DATE: TIME: NEXT DOSE DUE: DATE: TIME: Lisinopril 10 Mg Tablet 10 Mg PO DAILY LAST DOSE GIVEN: DATE: TIME: NEXT DOSE DUE: DATE: TIME: Zyrtec (Cetirizine Hcl) 10 Mg Tablet 1 Tab PO QHS LAST DOSE GIVEN: DATE: TIME: NEXT DOSE DUE: DATE: TIME: Valium (Diazepam) 5 Mg Tablet 5 Mg PO TID PRN PRN LAST DOSE GIVEN: DATE: TIME: NEXT DOSE DUE: DATE: TIME: Senokot (Sennosides) 8.6 Mg Tablet 1-4 Tab PO PRN DAILY PRN LAST DOSE GIVEN: DATE:Not GIVEN TIME: NEXT DOSE DUE: DATE: TIME: Imitrex (Sumatriptan Succinate) 25 Mg Tablet 100 Mg PO PRN DAILY PRN LAST DOSE GIVEN: DATE: NOT GIVEN TIME: NEXT DOSE DUE: DATE: TIME: Percocet 5-325 Mg Tablet (Oxycodone Hcl/Acetaminophen) 1 Each Tablet 2 Tab PO PRN Q6HRS PRN LAST DOSE GIVEN: DATE: TIME: NEXT DOSE DUE: DATE: TIME: Prochlorperazine Maleate 10 Mg Tablet PO PRN DAILY PRN LAST DOSE GIVEN: DATE: TIME: NEXT DOSE DUE: DATE: TIME: Topamax (Topiramate) 100 Mg Tablet 100 Mg PO BID LAST DOSE GIVEN: DATE: Today TIME: 0900 NEXT DOSE DUE: DATE: tonight TIME: 9:00 PM Metformin Hcl 500 Mg Tablet 500 Mg PO BIDWMEALS LAST DOSE GIVEN: DATE:today TIME:0800 NEXT DOSE DUE: DATE:today TIME:5:00PM Lidoderm (Lidocaine) 700 Mg Adh..patch 700 Mg TP PRN DAILY PRN LAST DOSE GIVEN: DATE:today TIME:899 NEXT DOSE DUE: DATE:tomorrow TIME:899 Colace (Docusate Sodium) 100 Mg Capsule 200 Mg PO BID PRN LAST DOSE GIVEN: DATE: today TIME:899 NEXT DOSE DUE: DATE:[place] TIME: 9:00 Vitals/I & O Vital Sign - Last 24 Hours 04/24/17 04/24/17 04/24/17 04/24/17 19:49 20:00 21:09 22:58 Temp 98.3 Pulse 67 Resp 20 B/P (MAP) 136/97 (110) Pulse Ox 96 96 96 O2 Delivery Room Air Room Air Room Air Room Air 04/25/17 04/25/17 04/25/17 04/25/17 00:10 05:22 08:37 08:38 Temp 98.2 Pulse 98 74 74 74 Resp 18 B/P (MAP) 122/86 (98) 127/83 (98) 127/83 127/83 Pulse Ox 91 O2 Delivery Room Air 04/25/17 04/25/17 04/25/17 04/25/17 08:50 09:50 10:29 14:18 Temp 98.2 98.1 Pulse 61 70 Resp 20 20 B/P (MAP) 135/95 (108) 132/84 (100) Pulse Ox 91 91 94 92 O2 Delivery Room Air Room Air Room Air Room Air Intake and Output 04/24/17 04/24/17 04/25/17 15:00 23:00 07:00 Intake Total 593.22 ml 300 ml Output Total 200 ml 500 ml Balance 393.22 ml -200 ml MARIANN HARTLEY MD Apr 25, 2017 17:59
[2017-04-25] MEDS ORDERED: BISACODYL 10 MG SUPP.RECT PR PRN (18:15)
[2017-04-25] MEDS ORDERED: WARFARIN 4 MG TABLET. PO ONE (18:30)
[2017-04-25 18:31] VITALS: BP 117/72
[2017-04-25] MEDS: traZODone 150 MG TABLET. PO SCH (20:33)
[2017-04-25] MEDS: POLYETHYLENE GLYCOL 3350 17 GM PACKET. PO SCH (20:33)
[2017-04-25] MEDS: CETIRIZINE HCL 10 MG TABLET PO SCH (20:33)
[2017-04-25] MEDS: HYDROcodone/APAP 7.5/325MG 1 TAB TABLET PO PRN (20:33)
[2017-04-26] MEDS: LEVOTHYROXINE 175 MCG TABLET PO SCH (05:37)
[2017-04-26] MEDS: ONDANSETRON ODT 4 MG TAB.RAPDIS PO SCH ×2 (05:37→13:26)
[2017-04-26] MEDS: LEVOTHYROXINE 50 MCG TABLET PO SCH (05:37)
[2017-04-26 06:54] LABS: BASO # 0.1 x10^3/uL (0.0-0.2); BASO % 1 % (0-3); EOS # 0.2 x10^3/uL (0.0-0.7); EOS % 3 % (0-3); HEMATOCRIT 35.2 % (36.0-47.0); HEMOGLOBIN 11.5 g/dL (12.0-15.5); LYMPH # 3.1 x10^3/uL (1.0-4.8); LYMPH % 45 % (24-48); MEAN CORPUSCULAR HEMOGLOBIN 30 pg (25-35); MEAN CORPUSCULAR HGB CONC 33 g/dL (31-37); MEAN CORPUSCULAR VOLUME 91 fL (79-100); MONO # 0.6 x10^3/uL (0.0-1.1); MONO % 9 % (0-9); NEUT # 2.9 x10^3uL (1.8-7.7); NEUT % 42 % (31-73); PLATELET COUNT 249 x10^3/uL (140-400); RED BLOOD COUNT 3.85 x10^6/uL (3.50-5.40); RED CELL DISTRIBUTION WIDTH 16.1 % (11.5-14.5); WHITE BLOOD COUNT 6.9 x10^3/uL (4.0-11.0)
[2017-04-26 07:03] LABS: ALBUMIN 2.8 g/dL (3.4-5.0); ALBUMIN/GLOBULIN RATIO 0.8 (1.0-1.7); CALCIUM 8.1 mg/dL (8.5-10.1); GFR 62.7; POTASSIUM 4.2 mmol/L (3.5-5.1); TOTAL BILIRUBIN 0.2 mg/dL (0.2-1.0); TOTAL PROTEIN 6.1 g/dL (6.4-8.2)
[2017-04-26 07:51] VITALS: BP 121/81
[2017-04-26] MEDS: PRAZOSIN 5 MG CAPSULE. PO SCH (08:57)
[2017-04-26] MEDS: LURASIDONE 40 MG TABLET. PO SCH (08:57)
[2017-04-26] MEDS: VENLAFAXINE 75 MG TABLET. PO SCH (08:57)
[2017-04-26] MEDS: EZETIMIBE 10 MG TABLET PO SCH (08:58)
[2017-04-26] MEDS: KETOTIFEN FUMARATE 0.025% OPHT SOLUTION BOTTLE. OU SCH (08:58)
[2017-04-26] MEDS: metroNIDAZOLE 500 MG TABLET PO SCH (08:58)
[2017-04-26] MEDS: FAMOTIDINE 20 MG TABLET PO SCH (08:59)
[2017-04-26] MEDS: CIPROFLOXACIN HCL 500 MG TABLET PO SCH (08:59)
[2017-04-26] MEDS: TOPIRAMATE 100 MG TABLET. PO SCH (08:59)
[2017-04-26] MEDS: LISINOPRIL 10 MG TABLET PO SCH (08:59)
[2017-04-26] MEDS: metFORMIN 500 MG TABLET PO SCH (08:59)
[2017-04-26] MEDS: POLYETHYLENE GLYCOL 3350 17 GM PACKET. PO SCH (09:00)
[2017-04-26] MEDS: GABAPENTIN 400 MG CAPSULE. PO SCH (09:03)
[2017-04-26] MEDS: PROCHLORPERAZINE 10 MG TABLET. PO PRN (09:10)
[2017-04-26] MEDS: GABAPENTIN 300 MG CAPSULE. PO SCH (11:57)
[2017-04-26 12:01] VITALS: BP 124/84
[2017-04-26] MEDS: oxyCODONE/APAP 5/325 1 TAB TABLET PO PRN (13:27)
[2017-04-26 15:29] VITALS: BP 124/86
[2017-04-26] MEDS ORDERED: WARFARIN 6 MG TABLET. PO ONE (16:00)
[2017-04-26] MEDS ORDERED: TIZA4TAB PO (16:16)
[2017-04-26] MEDS ORDERED: WARF4TAB7 PO (16:16)
--- NOTE | 2017-04-26 16:19 | DISCH ---
DISCHARGE INSTRUCTIONS-DC Condition on Discharge Condition on Discharge: Stable Problems: Activity after Discharge Activity Instructions for Disc: Activity as tolerated Diet after Discharge Diet after Discharge: [place] Checks after Discharge Checks after discharge: Check your Temp as needed Contacting the [facility]aria[facility] after DC Call your doctor for: If your condition worsens Follow-Up Follow up with: PCP in 1 week Follow up with: INR in 1-2 days Warfarin Follow-Up Warfarin Follow UP: 1-2 days (take 6 mg daily until then) MARIANN HARTLEY MD Apr 26, 2017 16:19
--- NOTE | 2017-04-26 16:23 | PDOC3 ---
Discharge Summary Discharge Summary Date of Admission Date of Admission: Apr 24, 2017 at 11:35 Admitting Diagnosis Abdominal pain Acute pancolitis Hx of DVT Chronic pain Hypertension Date of Discharge: Apr 26, 2017 Discharge Diagnosis Abdominal pain Acute pancolitis Hx of DVT Chronic pain Hypertension Laboratory Findings Laboratory Tests Test 04/24/17 10:40 04/24/17 11:35 04/24/17 16:23 04/24/17 20:22 White Blood Count 10.2 x10^3/uL (4.0-11.0) Red Blood Count 4.14 x10^6/uL (3.50-5.40) Hemoglobin 12.5 g/dL (12.0-15.5) Hematocrit 37.2 % (36.0-47.0) Mean Corpuscular Volume 90 fL (79-100) Mean Corpuscular Hemoglobin 30 pg (25-35) Mean Corpuscular Hemoglobin Concent 34 g/dL (31-37) Red Cell Distribution Width 16.3 % (11.5-14.5) Platelet Count 271 x10^3/uL (140-400) Neutrophils (%) (Auto) 61 % (31-73) Lymphocytes (%) (Auto) 31 % (24-48) Monocytes (%) (Auto) 7 % (0-9) Eosinophils (%) (Auto) 2 % (0-3) Basophils (%) (Auto) 1 % (0-3) Neutrophils # (Auto) 6.2 x10^3uL (1.8-7.7) Lymphocytes # (Auto) 3.1 x10^3/uL (1.0-4.8) Monocytes # (Auto) 0.7 x10^3/uL (0.0-1.1) Eosinophils # (Auto) 0.2 x10^3/uL (0.0-0.7) Basophils # (Auto) 0.1 x10^3/uL (0.0-0.2) Prothrombin Time 41.3 SEC (9.4-11.4) Prothromb Time International Ratio 4.0 (0.9-1.1) Sodium Level 139 mmol/L (136-145) Potassium Level 4.0 mmol/L (3.5-5.1) Chloride Level 106 mmol/L (98-107) Carbon Dioxide Level 26 mmol/L (21-32) Anion Gap 7 (6-14) Blood Urea Nitrogen 8 mg/dL (7-20) Creatinine 0.9 mg/dL (0.6-1.0) Estimated GFR (Cockcroft-Gault) 70.8 BUN/Creatinine Ratio 9 (6-20) Glucose Level 112 mg/dL (70-99) Calcium Level 8.8 mg/dL (8.5-10.1) Total Bilirubin 0.2 mg/dL (0.2-1.0) Aspartate Amino Transf (AST/SGOT) 19 U/L (15-37) Alanine Aminotransferase (ALT/SGPT) 39 U/L (14-59) Alkaline Phosphatase 98 U/L (46-116) Total Protein 7.8 g/dL (6.4-8.2) Albumin 3.6 g/dL (3.4-5.0) Albumin/Globulin Ratio 0.9 (1.0-1.7) Lipase 199 U/L (73-393) Urine Collection Type Unknown Urine Color Yellow Urine Clarity Cloudy Urine pH 8.0 Urine Specific [place] 1.015 Urine Protein Neg (NEG-TRACE) Urine Glucose (UA) Neg mg/dL (NEG) Urine Ketones (Stick) Neg mg/dL (NEG) Urine Blood Neg (NEG) Urine Nitrite Neg (NEG) Urine Bilirubin Neg (NEG) Urine Urobilinogen Dipstick 0.2 mg/dL (0.2 mg/dL) Urine Leukocyte Esterase Neg (NEG) Urine RBC 0 /HPF (0-2) Urine WBC Rare /HPF (0-4) Urine Squamous Epithelial Cells Occ /LPF Urine Amorphous Sediment Present /HPF Urine Bacteria 0 /HPF (0-FEW) Glucose (Fingerstick) 141 mg/dL (70-99) 90 mg/dL (70-99) Test 04/25/17 06:13 04/26/17 06:26 04/26/17 08:21 White Blood Count 10.1 x10^3/uL (4.0-11.0) 6.9 x10^3/uL (4.0-11.0) Red Blood Count 4.13 x10^6/uL (3.50-5.40) 3.85 x10^6/uL (3.50-5.40) Hemoglobin 12.3 g/dL (12.0-15.5) 11.5 g/dL (12.0-15.5) Hematocrit 37.7 % (36.0-47.0) 35.2 % (36.0-47.0) Mean Corpuscular Volume 91 fL (79-100) 91 fL (79-100) Mean Corpuscular Hemoglobin 30 pg (25-35) 30 pg (25-35) Mean Corpuscular Hemoglobin Concent 33 g/dL (31-37) 33 g/dL (31-37) Red Cell Distribution Width 16.5 % (11.5-14.5) 16.1 % (11.5-14.5) Platelet Count 264 x10^3/uL (140-400) 249 x10^3/uL (140-400) Neutrophils (%) (Auto) 63 % (31-73) 42 % (31-73) Lymphocytes (%) (Auto) 27 % (24-48) 45 % (24-48) Monocytes (%) (Auto) 7 % (0-9) 9 % (0-9) Eosinophils (%) (Auto) 3 % (0-3) 3 % (0-3) Basophils (%) (Auto) 0 % (0-3) 1 % (0-3) Neutrophils # (Auto) 6.4 x10^3uL (1.8-7.7) 2.9 x10^3uL (1.8-7.7) Lymphocytes # (Auto) 2.8 x10^3/uL (1.0-4.8) 3.1 x10^3/uL (1.0-4.8) Monocytes # (Auto) 0.7 x10^3/uL (0.0-1.1) 0.6 x10^3/uL (0.0-1.1) Eosinophils # (Auto) 0.3 x10^3/uL (0.0-0.7) 0.2 x10^3/uL (0.0-0.7) Basophils # (Auto) 0.0 x10^3/uL (0.0-0.2) 0.1 x10^3/uL (0.0-0.2) Prothrombin Time 31.3 SEC (9.4-11.4) 20.6 SEC (9.4-11.4) Prothromb Time International Ratio 3.0 (0.9-1.1) 2.0 (0.9-1.1) Sodium Level 142 mmol/L (136-145) 144 mmol/L (136-145) Potassium Level 4.3 mmol/L (3.5-5.1) 4.2 mmol/L (3.5-5.1) Chloride Level 109 mmol/L (98-107) 111 mmol/L (98-107) Carbon Dioxide Level 29 mmol/L (21-32) 27 mmol/L (21-32) Anion Gap 4 (6-14) 6 (6-14) Blood Urea Nitrogen 10 mg/dL (7-20) 8 mg/dL (7-20) Creatinine 1.0 mg/dL (0.6-1.0) 1.0 mg/dL (0.6-1.0) Estimated GFR (Cockcroft-Gault) 62.7 62.7 BUN/Creatinine Ratio 10 (6-20) 8 (6-20) Glucose Level 101 mg/dL (70-99) 99 mg/dL (70-99) Calcium Level 8.2 mg/dL (8.5-10.1) 8.1 mg/dL (8.5-10.1) Magnesium Level 1.7 mg/dL (1.8-2.4) Total Bilirubin 0.2 mg/dL (0.2-1.0) 0.2 mg/dL (0.2-1.0) Aspartate Amino Transf (AST/SGOT) 22 U/L (15-37) 22 U/L (15-37) Alanine Aminotransferase (ALT/SGPT) 36 U/L (14-59) 31 U/L (14-59) Alkaline Phosphatase 87 U/L (46-116) 80 U/L (46-116) Total Protein 6.9 g/dL (6.4-8.2) 6.1 g/dL (6.4-8.2) Albumin 3.1 g/dL (3.4-5.0) 2.8 g/dL (3.4-5.0) Albumin/Globulin Ratio 0.8 (1.0-1.7) 0.8 (1.0-1.7) Hospital Course Pt was admitted for colitis. CT 2 days prior was negative for diverticulitis, w / possible SBO. Pt had xray in hospital negative for SBO. She was treated w/ IVF and IV Flagyl and Cipro. By d/c day she was doing very well. She was found to be constipated and treated w/ Miralax. A cdif test was sent, but her stools were formed, so I suspect this will be negative. Pt is on Flagyl anyway. Condition at Discharge: Stable Home Meds Active Scripts Metronidazole (FLAGYL) 500 Mg Tablet, 1 TAB PO BID, #14 TAB Prov:SUSANA PHELPS MD 04/21/17 Ondansetron (ZOFRAN ODT) 4 Mg Tab.rapdis, 1 TAB SL Q8HRS, #15 TAB Prov:SUSANA PHELPS MD 04/21/17 Hydrocodone Bit/Acetaminophen (HYDROCODONE-APAP 7.5-325 ) 1 Each Tablet, 1 TAB PO PRN Q6HRS Y for PAIN, #20 TAB 0 Refills Prov:SUSANA PHELPS MD 04/21/17 Ciprofloxacin Hcl (CIPRO) 500 Mg Tablet, 1 TAB PO BID, #14 TAB Prov:SUSANA PHELPS MD 04/21/17 Reported Medications Ketotifen Fumarate (ZADITOR) 5 Ml Drops, 1 DROP EACHEYE DAILY 04/24/17 Ranitidine Hcl (RANITIDINE HCL) 150 Mg Tablet, 150 MG PO BID LAST DOSE GIVEN: DATE: TIME: NEXT DOSE DUE: DATE: TIME: 04/24/17 Ezetimibe (ZETIA) 10 Mg Tablet, 10 MG PO DAILY LAST DOSE GIVEN: DATE: TIME: NEXT DOSE DUE: DATE: TIME: 04/24/17 Ergocalciferol (Vitamin D2) (VITAMIN D2) 50,000 Unit Capsule, 38872 UNITS PO WEEKLY LAST DOSE GIVEN: DATE: TIME: NEXT DOSE DUE: DATE: TIME: 04/24/17 Trazodone Hcl (TRAZODONE HCL) 100 Mg Tablet, 150 MG PO HS LAST DOSE GIVEN: DATE: TIME: NEXT DOSE DUE: DATE: TIME: 04/24/17 Carboxymethylcellulose Sodium (REFRESH PLUS) 1 Each Droperette, 1-2 DROP OU PRN Y for DRY EYE LAST DOSE GIVEN: DATE: TIME: NEXT DOSE DUE: DATE: TIME: 04/24/17 Prazosin Hcl (PRAZOSIN HCL) 5 Mg Capsule, 5 MG PO DAILY LAST DOSE GIVEN: DATE: TIME: NEXT DOSE DUE: DATE: TIME: 04/24/17 Lurasidone Hcl (LATUDA) 40 Mg Tablet, 40 MG PO DAILY LAST DOSE GIVEN: DATE: TIME: NEXT DOSE DUE: DATE: TIME: 04/24/17 Ketoconazole (KETOCONAZOLE) 15 Gm Cream..g., 1 CHAU TP PRN BID Y for RASH LAST DOSE GIVEN: DATE: TIME: NEXT DOSE DUE: DATE: TIME: 04/24/17 Venlafaxine Hcl (VENLAFAXINE HCL ER) 225 Mg Tab.er.24, 225 MG PO DAILY LAST DOSE GIVEN: DATE: TIME: NEXT DOSE DUE: DATE: TIME: 04/24/17 Gabapentin (GABAPENTIN) 600 Mg Tablet, 1800 MG PO DAILYWLUN LAST DOSE GIVEN: DATE: TIME: NEXT DOSE DUE: DATE: TIME: 04/24/17 Warfarin Sodium (WARFARIN SODIUM) 4 Mg Tablet, 2 TAB PO DAILY LAST DOSE GIVEN: DATE: TIME: NEXT DOSE DUE: DATE: TIME: 04/24/17 Levothyroxine Sodium (SYNTHROID) 200 Mcg Tablet, 225 MCG PO DAILYAC for THYROID SUPPLEMENT LAST DOSE GIVEN: DATE: TIME: NEXT DOSE DUE: DATE: TIME: 04/24/17 Gabapentin (GABAPENTIN) 600 Mg Tablet, 1200 MG PO DAILY LAST DOSE GIVEN: DATE: TIME: NEXT DOSE DUE: DATE: TIME: 04/24/17 Triamcinolone Acetonide (TRIAMCINOLONE ACETONIDE) 15 Gm Cream..g., 1 CHAU TP BID Y for RASH LAST DOSE GIVEN: DATE: TIME: NEXT DOSE DUE: DATE: TIME: 04/04/16 Tizanidine Hcl (TIZANIDINE HCL) 4 Mg Tablet, 4 MG PO TID Y for MUSCLE SPASMS LAST DOSE GIVEN: DATE: TIME: NEXT DOSE DUE: DATE: TIME: 04/04/16 Propylene Glycol/Peg 400 (SYSTANE 0.3-0.4% EYE DROPS) 15 Ml Drops, 1 DROP EACHEYE QID Y for DRY EYE LAST DOSE GIVEN: DATE: TIME: NEXT DOSE DUE: DATE: TIME: 04/04/16 Lisinopril (LISINOPRIL) 10 Mg Tablet, 10 MG PO DAILY for HIGH BLOOD PRESSURE LAST DOSE GIVEN: DATE: TIME: NEXT DOSE DUE: DATE: TIME: 04/04/16 Cetirizine Hcl (ZYRTEC) 10 Mg Tablet, 1 TAB PO QHS for SEASONAL ALLERGIES LAST DOSE GIVEN: DATE: TIME: NEXT DOSE DUE: DATE: TIME: 04/04/16 Diazepam (VALIUM) 5 Mg Tablet, 5 MG PO TID PRN Y for ANXIETY / AGITATION LAST DOSE GIVEN: DATE: TIME: NEXT DOSE DUE: DATE: TIME: 09/12/15 Sennosides (SENOKOT) 8.6 Mg Tablet, 1-4 TAB PO PRN DAILY Y for CONSTIPATION LAST DOSE GIVEN: DATE:Not GIVEN TIME: NEXT DOSE DUE: DATE: TIME: 01/25/15 Sumatriptan Succinate (IMITREX) 25 Mg Tablet, 100 MG PO PRN DAILY Y for HEADACHE LAST DOSE GIVEN: DATE: NOT GIVEN TIME: NEXT DOSE DUE: DATE: TIME: 01/15/14 Oxycodone Hcl/Acetaminophen (PERCOCET 5-325 MG TABLET) 1 Each Tablet, 2 TAB PO PRN Q6HRS Y for PAIN LAST DOSE GIVEN: DATE: TIME: NEXT DOSE DUE: DATE: TIME: 11/20/13 Prochlorperazine Maleate (PROCHLORPERAZINE MALEATE) 10 Mg Tablet, PO PRN DAILY Y for NAUSEA LAST DOSE GIVEN: DATE: TIME: NEXT DOSE DUE: DATE: TIME: 11/20/13 Topiramate (TOPAMAX) 100 Mg Tablet, 100 MG PO BID for seizure LAST DOSE GIVEN: DATE: Today TIME: 0900 NEXT DOSE DUE: DATE: tonight TIME: 9:00 PM 09/05/13 Metformin Hcl (METFORMIN HCL) 500 Mg Tablet, 500 MG PO BIDWMEALS for diabetes LAST DOSE GIVEN: DATE:today TIME:0800 NEXT DOSE DUE: DATE:today TIME:5:00PM 09/05/13 Lidocaine (LIDODERM) 700 Mg Adh..patch, 700 MG TP PRN DAILY Y for PAIN LAST DOSE GIVEN: DATE:today TIME:0900 NEXT DOSE DUE: DATE:tomorrow TIME:0900 09/05/13 Docusate Sodium (COLACE) 100 Mg Capsule, 200 MG PO BID Y for CONSTIPATION LAST DOSE GIVEN: DATE: today TIME:0900 NEXT DOSE DUE: DATE:tonight TIME: 9:00 09/05/13 Discontinued Reported Medications Bupropion Hcl (WELLBUTRIN SR) 100 Mg Tablet.er, 100 MG PO DAILY for DEPRESSION 04/04/16 Cholecalciferol (Vitamin D3) (VITAMIN D3) 5,000 Unit Tablet, 23883 UNIT PO DAILY for SUPPLEMENT 04/04/16 Nicotine (NICODERM CQ 21mg) 1 Each Patch.td24, 1 PATCH TD DAILY Y for SMOKING CESSATION, PATCH 04/04/16 Atorvastatin Calcium (LIPITOR) 20 Mg Tablet, 20 MG PO DAILY for LIPIDS, #30 TAB 0 Refills 04/04/16 Duloxetine Hcl (CYMBALTA) 60 Mg Capsule.dr, 60 MG PO DAILY Y for DEPRESSION 04/04/16 Warfarin Sodium (COUMADIN) 1 Mg Tablet, 7 MG PO QODAY for ANTICOAGULANT 04/04/16 Warfarin Sodium (COUMADIN) 1 Mg Tablet, 7.5 MG PO QODAY for ANTICOAGULANT 04/04/16 Tamsulosin Hcl (FLOMAX) 0.4 Mg Cap.er.24h, 0.4 MG PO BID 04/04/16 Levothyroxine Sodium (LEVOTHYROXINE SODIUM) 175 Mcg Tablet, 175 MCG PO DAILY06 for HYPOTHYROID, #30 TAB 0 Refills 04/04/16 Eszopiclone (LUNESTA) 1 Mg Tablet, 1 MG PO HS for SLEEP 04/04/16 Buspirone Hcl (BUSPIRONE HCL) 5 Mg Tablet, 5 MG PO TID for ANXIETY LAST DOSE GIVEN: DATE: today TIME: 09 NEXT DOSE DUE: DATE:[place] TIME: 9:00PM 01/25/15 Gabapentin (GABAPENTIN) 800 Mg Tablet, 1200 MG PO TID for PAIN LAST DOSE GIVEN: DATE: today TIME: 09 NEXT DOSE DUE: DATE:today TIME:2:00 pm 09/05/13 Celecoxib (CELEBREX) 100 Mg Capsule, 100 MG PO PRN DAILY for PAIN LAST DOSE GIVEN: DATE: TIME:NOT GIVEN NEXT DOSE DUE: DATE: TIME: 09/05/13 Inpatient Meds Current Medications Fentanyl Citrate (Fentanyl 2ml Vial) 50 mcg PRN Q15MIN PRN IV PAIN GREATER THAN 3/10 Last administered on 04/24/17 13:54; Start 04/24/17 at 10:45; Stop at 10:45; Status DC Sodium Chloride 1,000 ml @ 100 mls/hr Q10H IV Last administered on 04/24/17 14:36; Start 04/24/17 at 10:33; Stop 04/24/17 at 20:32; Status DC Ketorolac Tromethamine (Toradol) 30 mg PRN Q6HRS PRN IV PAIN Last administered on 04/25/17 14:46; Start 04/24/17 at 15:30; Stop 04/25/17 at 18:02; Status DC Ketorolac Tromethamine (Toradol) 30 mg PRN Q6HRS PRN IV PAIN; Start 04/24/17 at 15:45; Stop 04/24/17 at 16:04; Status DC Alprazolam (Xanax) 0.25 mg PRN Q6HRS PRN PO ANXIETY / AGITATION Last administered on 04/26/17 11:57; Start 04/24/17 at 15:45 Cetirizine HCl (ZyrTEC) 10 mg QHS PO Last administered on 04/25/17 20:33; Start 04/24/17 at 21:00 Ciprofloxacin (Cipro) 500 mg BID PO Last administered on 04/26/17 08:59; Start 04/24/17 at 21:00 Diazepam (Valium) 5 mg PRN TID PRN PO ANXIETY / AGITATION; Start 04/24/17 at 15 :45 Docusate Sodium (Colace) 200 mg PRN BID PRN PO CONSTIPATION; Start 04/24/17 at 15:45 EZETIMIBE (Zetia) 10 mg DAILY PO Last administered on 04/26/17 08:58; Start at 09:00 Acetaminophen/ Hydrocodone Bitart (Lortab 7.5/325) 1 tab PRN Q6HRS PRN PO PAIN Last administered on 04/25/17 20:33; Start 04/24/17 at 15:45 Ketoconazole (Nizoral 2% Topical) 1 chau PRN BID PRN TP RASH; Start 04/24/17 at 15:45 Ketotifen Fumarate (Zaditor) 1 drop DAILY OU Last administered on 04/26/17 08: 58; Start 04/25/17 at 09:00 Lidocaine (Lidoderm) 1 patch PRN DAILY PRN TP PAIN; Start 04/24/17 at 15:45 Lisinopril (Prinivil) 10 mg DAILY PO Last administered on 04/26/17 08:59; Start 04/25/17 at 09:00 Metformin HCl (Glucophage) 500 mg BIDWMEALS PO Last administered on 04/26/17 08:59; Start 04/24/17 at 17:00 Metronidazole (Flagyl) 500 mg BID PO Last administered on 04/26/17 08:58; Start 04/24/17 at 21:00 Ondansetron HCl (Zofran Odt) 4 mg Q8HRS PO Last administered on 04/26/17 13:26 ; Start 04/24/17 at 22:00 Oxycodone/ Acetaminophen (Percocet 5/325) 2 tab PRN Q6HRS PRN PO PAIN Last administered on 04/26/17 13:27; Start 04/24/17 at 15:45 Prazosin HCl (Minipress) 5 mg DAILY PO Last administered on 04/26/17 08:57; Start 04/25/17 at 09:00 Prochlorperazine Maleate (Compazine) 10 mg PRN DAILY PRN PO NAUSEA Last administered on 04/26/17 09:10; Start 04/24/17 at 15:45 Sennosides (Senna) 8.6 mg PRN DAILY PRN PO CONSTIPATION; Start 04/24/17 at 15: 45 Tizanidine HCl (Zanaflex) 4 mg PRN TID PRN PO MUSCLE SPASMS; Start 04/24/17 at 15:45 Topiramate (Topamax) 100 mg BID PO Last administered on 04/26/17 08:59; Start 04/24/17 at 21:00 Trazodone HCl (Desyrel) 150 mg HS PO Last administered on 04/25/17 20:33; Start 04/24/17 at 21:00 Triamcinolone Acetonide (Aristocort) 1 chau PRN BID PRN TP RASH; Start 04/24/17 at 15:45 Warfarin Sodium (Coumadin) 8 mg DAILY PO ; Start 04/25/17 at 09:00; Stop at 09:00; Status DC Artificial Tears (Refresh Classic) 1 drop PRN DAILY PRN OU DRY EYE; Start 04/24 at 16:15; Stop 04/25/17 at 14:56; Status DC Non-Formulary Medication 50,000 units WEEKLY PO ; Start 05/01/17 at 09:00; Stop 05/01/17 at 09:00; Status DC Gabapentin (Neurontin) 1,200 mg DAILY PO Last administered on 04/26/17 09:03; Start 04/25/17 at 09:00 Gabapentin (Neurontin) 1,800 mg DAILYWLUN PO Last administered on 04/26/17 11: 57; Start 04/25/17 at 12:00 Non-Formulary Medication 225 mcg DAILYAC PO ; Start 04/25/17 at 07:30; Stop 08/30 at 07:30; Status DC Non-Formulary Medication 1 drop QID PRN EACHEYE DRY EYE; Start 04/24/17 at 15: 45; Stop 04/24/17 at 16:37; Status DC Famotidine (Pepcid) 20 mg BID PO Last administered on 04/26/17 08:59; Start at 21:00 Sumatriptan Succinate (Imitrex) 100 mg PRN DAILY PRN PO HEADACHE; Start at 16:30 Venlafaxine HCl (Effexor) 225 mg DAILY PO Last administered on 04/26/17 08:57 ; Start 04/25/17 at 09:00 Levothyroxine Sodium (Synthroid) 175 mcg DAILY07 PO Last administered on 05:37; Start 04/25/17 at 07:00 Levothyroxine Sodium (Synthroid) 50 mcg DAILY07 PO Last administered on 05:37; Start 04/25/17 at 07:00 Pneumococcal Polyvalent Vaccine (Pneumovax 23) 0.5 ml ONCE ONCE VAX IM Last administered on 04/25/17 08:40; Start 04/25/17 at 09:00; Stop 04/25/17 at 09:02 ; Status DC Warfarin Sodium (Coumadin Per Physician) 1 each PRN DAILY PRN MC SEE COMMENTS; Start 04/24/17 at 17:00; Stop 04/25/17 at 18:20; Status DC Sodium Chloride 1,000 ml @ As Directed STK-MED ONCE .ROUTE Last administered on 04/25/17 01:27; Start 04/25/17 at 01:27; Stop 04/25/17 at 01:28; Status DC Sodium Chloride 1,000 ml @ As Directed STK-MED ONCE .ROUTE Last administered on 04/25/17 12:01; Start 04/25/17 at 11:58; Stop 04/25/17 at 11:59; Status DC Artificial Tears (Refresh Classic) 1 drop PRN DAILY PRN OU DRY EYE; Start 04/25 at 14:56 Warfarin Sodium (Coumadin Per Pharmacy) 1 each PRN DAILY PRN MC SEE COMMENTS Last administered on 04/26/17 11:51; Start 04/25/17 at 18:00 Polyethylene Glycol (miraLAX) 17 gm DAILY PO Last administered on 04/25/17 20: 33; Start 04/25/17 at 18:30 Bisacodyl (Dulcolax Supp) 10 mg PRN DAILY PRN AR CONSTIPATION; Start 04/25/17 at 18:15 Warfarin Sodium (Coumadin) 4 mg 1X ONCE PO Last administered on 04/25/17 20: 33; Start 04/25/17 at 18:30; Stop 04/25/17 at 18:32; Status DC Warfarin Sodium (Coumadin) 6 mg 1X WARF ONCE PO ; Start 04/26/17 at 16:00; Stop 04/26/17 at 16:01; Status DC Active Scripts Active Flagyl (Metronidazole) 500 Mg Tablet 1 Tab PO BID Zofran Odt (Ondansetron) 4 Mg Tab.rapdis 1 Tab SL Q8HRS Hydrocodone-Apap 7.5-325 (Hydrocodone Bit/Acetaminophen) 1 Each Tablet 1 Tab PO PRN Q6HRS PRN Cipro (Ciprofloxacin Hcl) 500 Mg Tablet 1 Tab PO BID Reported Zaditor (Ketotifen Fumarate) 5 Ml Drops 1 Drop EACHEYE DAILY Ranitidine Hcl 150 Mg Tablet 150 Mg PO BID LAST DOSE GIVEN: DATE: TIME: NEXT DOSE DUE: DATE: TIME: Zetia (Ezetimibe) 10 Mg Tablet 10 Mg PO DAILY LAST DOSE GIVEN: DATE: TIME: NEXT DOSE DUE: DATE: TIME: Vitamin D2 (Ergocalciferol (Vitamin D2)) 50,000 Unit Capsule 50,000 Units PO WEEKLY LAST DOSE GIVEN: DATE: TIME: NEXT DOSE DUE: DATE: TIME: Trazodone Hcl 100 Mg Tablet 150 Mg PO HS LAST DOSE GIVEN: DATE: TIME: NEXT DOSE DUE: DATE: TIME: Refresh Plus (Carboxymethylcellulose Sodium) 1 Each Droperette 1-2 Drop OU PRN PRN LAST DOSE GIVEN: DATE: TIME: NEXT DOSE DUE: DATE: TIME: Prazosin Hcl 5 Mg Capsule 5 Mg PO DAILY LAST DOSE GIVEN: DATE: TIME: NEXT DOSE DUE: DATE: TIME: Latuda (Lurasidone Hcl) 40 Mg Tablet 40 Mg PO DAILY LAST DOSE GIVEN: DATE: TIME: NEXT DOSE DUE: DATE: TIME: Ketoconazole 15 Gm Cream..g. 1 Chau TP PRN BID PRN LAST DOSE GIVEN: DATE: TIME: NEXT DOSE DUE: DATE: TIME: Venlafaxine Hcl Er (Venlafaxine Hcl) 225 Mg Tab.er.24 225 Mg PO DAILY LAST DOSE GIVEN: DATE: TIME: NEXT DOSE DUE: DATE: TIME: Gabapentin 600 Mg Tablet 1,800 Mg PO DAILYWLUN LAST DOSE GIVEN: DATE: TIME: NEXT DOSE DUE: DATE: TIME: Warfarin Sodium 4 Mg Tablet 2 Tab PO DAILY LAST DOSE GIVEN: DATE: TIME: NEXT DOSE DUE: DATE: TIME: Synthroid (Levothyroxine Sodium) 200 Mcg Tablet 225 Mcg PO DAILYAC LAST DOSE GIVEN: DATE: TIME: NEXT DOSE DUE: DATE: TIME: Gabapentin 600 Mg Tablet 1,200 Mg PO DAILY LAST DOSE GIVEN: DATE: TIME: NEXT DOSE DUE: DATE: TIME: Triamcinolone Acetonide 15 Gm Cream..g. 1 Chau TP BID PRN LAST DOSE GIVEN: DATE: TIME: NEXT DOSE DUE: DATE: TIME: Tizanidine Hcl (Tizanidine HCl) 4 Mg Tablet 4 Mg PO TID PRN LAST DOSE GIVEN: DATE: TIME: NEXT DOSE DUE: DATE: TIME: Systane 0.3-0.4% Eye Drops (Propylene Glycol/Peg 400) 15 Ml Drops 1 Drop EACHEYE QID PRN LAST DOSE GIVEN: DATE: TIME: NEXT DOSE DUE: DATE: TIME: Lisinopril 10 Mg Tablet 10 Mg PO DAILY LAST DOSE GIVEN: DATE: TIME: NEXT DOSE DUE: DATE: TIME: Zyrtec (Cetirizine Hcl) 10 Mg Tablet 1 Tab PO QHS LAST DOSE GIVEN: DATE: TIME: NEXT DOSE DUE: DATE: TIME: Valium (Diazepam) 5 Mg Tablet 5 Mg PO TID PRN PRN LAST DOSE GIVEN: DATE: TIME: NEXT DOSE DUE: DATE: TIME: Senokot (Sennosides) 8.6 Mg Tablet 1-4 Tab PO PRN DAILY PRN LAST DOSE GIVEN: DATE:Not GIVEN TIME: NEXT DOSE DUE: DATE: TIME: Imitrex (Sumatriptan Succinate) 25 Mg Tablet 100 Mg PO PRN DAILY PRN LAST DOSE GIVEN: DATE: NOT GIVEN TIME: NEXT DOSE DUE: DATE: TIME: Percocet 5-325 Mg Tablet (Oxycodone Hcl/Acetaminophen) 1 Each Tablet 2 Tab PO PRN Q6HRS PRN LAST DOSE GIVEN: DATE: TIME: NEXT DOSE DUE: DATE: TIME: Prochlorperazine Maleate 10 Mg Tablet PO PRN DAILY PRN LAST DOSE GIVEN: DATE: TIME: NEXT DOSE DUE: DATE: TIME: Topamax (Topiramate) 100 Mg Tablet 100 Mg PO BID LAST DOSE GIVEN: DATE: Today TIME: 0900 NEXT DOSE DUE: DATE: tonight TIME: 9:00 PM Metformin Hcl 500 Mg Tablet 500 Mg PO BIDWMEALS LAST DOSE GIVEN: DATE:today TIME:0800 NEXT DOSE DUE: DATE:today TIME:5:00PM Lidoderm (Lidocaine) 700 Mg Adh..patch 700 Mg TP PRN DAILY PRN LAST DOSE GIVEN: DATE:today TIME:0900 NEXT DOSE DUE: DATE:tomorrow TIME:09 Colace (Docusate Sodium) 100 Mg Capsule 200 Mg PO BID PRN LAST DOSE GIVEN: DATE: today TIME:0900 NEXT DOSE DUE: DATE:tonight TIME: 9:00 Activity: as tolerated Diet: other ([place]) Follow-up Plan PCP in 1 week. MARIANN HARTLEY MD Apr 26, 2017 16:23
[2017-05-01] MEDS ORDERED: ERGOCALCIFEROL 50000 UNIT PO SCH (09:00)
== END 2017-04-26 17:45 | disposition home or self-care (01) | DRG 387 ==
LOC: ER 10:08 → 1 SOUTH 11:35
PROVIDERS: ADMIT Family Medicine; ATTEND Family Medicine
DX: K51.00 Ulcerative (chronic) pancolitis without complications (principal); I10 Essential (primary) hypertension; G89.29 Other chronic pain; F17.210 Nicotine dependence, cigarettes, uncomplicated; E66.9 Obesity, unspecified; E03.9 Hypothyroidism, unspecified; K59.00 Constipation, unspecified; Z79.01 Long term (current) use of anticoagulants; Z86.718 Personal history of other venous thrombosis and embolism; Z90.49 Acquired absence of other specified parts of digestive tract; Z68.37 Body mass index [BMI] 37.0-37.9, adult; Z88.1 Allergy status to other antibiotic agents; Z88.8 Allergy status to other drugs, medicaments and biological substances; K52.9 Noninfective gastroenteritis and colitis, unspecified
CPT/HCPCS: 36415; 74022; 74177; 80048; 80053; 80076; 80307; 81001; 82947; 83605; 83690; 83735; 85025; 85027; 85610; 87324; 90732; 99406; J1885; J3010; Q0162; Q0164; Q9967; 99285-25; G0479; J7030

== ENCOUNTER 2018-01-08 08:31 | Emergency (ER) | payer MEDICARE, OTHER ==
[~2018-01-08] VITALS: Ht 170.2 cm; Wt 101.6 kg
[~2018-01-08 08:31] MED LIST changes: +CARB1DRO OU; +ERGO500027 PO; +EZET10TA18 PO; +GABA600T2 PO; +KETO15CR2 TP; +KETO5DRO4 EACHEYE; +LURA40TA PO; +RANI150T2 PO; +TRAZ-90 PO; +VENL225T PO; +WARF1TAB69 PO; -WARF1TAB7 PO; +WARF4TAB7 PO
--- NOTE | 2018-01-08 10:08 | RAD ---
PA CHEST AND right RIB SERIES Clinical Indication: CHEST PAIN AND RIGHT LOWER RIB PAIN Comparison: Acute abdominal series, 04/24/2017. Findings: The cardiomediastinal silhouette is normal. Pulmonary vasculature is normal. Calcified granuloma right upper lung. The lungs are clear. No pleural effusion or pneumothorax is seen. Surgical clips in the expected location of thyroid, unchanged. The costochondral junctions of the right fourth, fifth, and sixth ribs are sclerotic. Finding is stable and could be due to old trauma. There are old healed fractures of the right lateral eighth and ninth ribs. There is no acute displaced rib fracture. A nondisplaced or subtle rib fracture could be obscured. IMPRESSION: 1. No acute cardiopulmonary process. 2. No acute displaced rib fracture. Electronically signed by: Smith Rodriguez MD (01/08/2018 10:04 AM) [id number]
[2018-01-08] MEDS ORDERED: LIDOCAINE (700MG/PATCH) PATCH. TD ONE (10:15)
--- NOTE | 2018-01-08 10:17 | PHYS DOC ---
Past History Past Medical History: Cancer, Other Additional Past Medical Histor: chronic right upper extremity edema, chronic elevated CK Past Surgical History: Cancer Surgery, Cholecystectomy, Hysterectomy, Other Smoking: Less than 1pk/day Alcohol Use: None Drug Use: Marijuana Adult General Chief Complaint Chief Complaint: FLANK PAIN [facility] HPI Patient is a 37 year old F who presents with right-sided rib pain. Nancy states that she has had cough over the past 2 weeks as well as right-sided rib pain. This morning she had a coughing episode during which her pain increased suddenly. Currently her pain is intermittent and positional. While at rest her pain is very tolerable however with movement, deep breathing and/or coughing her pain is moderate. 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 She has had multiple tumors on ribs in the past however she does not know the locations. Review of Systems Review of Systems Constitutional: Denies fever or chills [] Eyes: Denies change in visual acuity, redness, or eye pain [] HENT: Denies nasal congestion or sore throat [] Respiratory: Denies cough or shortness of breath [] Cardiovascular: No additional information not addressed in HPI [] GI: Denies abdominal pain, nausea, vomiting, bloody stools or diarrhea [] : Denies dysuria or hematuria [] Musculoskeletal: Negative except history of present illness Integument: Denies rash or skin lesions [] Neurologic: Denies headache, focal weakness or sensory changes [] Endocrine: Denies polyuria or polydipsia [] All other systems were reviewed and found to be within normal limits, except as documented in this note. Family History Family History No pertinent family history reported Current Medications Current Medications Current Medications Medications (Trade) Dose Ordered Sig/Pau Start Time Stop Time Status Last Admin Dose Admin Lidocaine (Lidoderm) 1 patch 1X ONCE 01/08/18 10:15 01/08/18 10:16 Miscellaneous (Lidoderm Patch Removal) 1 ea QHS 01/08/18 21:00 UNV Allergies Allergies Allergies Coded Allergies Type Severity Reaction Last Updated Verified Cephalexin Monohydrate Allergy Intermediate Rash 04/24/17 Yes cefazolin Allergy Intermediate 04/24/17 Yes enoxaparin sodium Allergy Intermediate Rash 04/24/17 Yes ampicillin Allergy Mild Rash 04/24/17 Yes clindamycin Allergy Mild Rash 04/24/17 Yes Physical Exam Physical Exam Constitutional: Well developed, well nourished, no acute distress, non-toxic appearance. [] HENT: Normocephalic, atraumatic, mild nasal congestion bilaterally Eyes: EOMI, conjunctiva normal, no discharge. [] Neck: Normal range of motion, no tenderness, supple, no stridor. [] Cardiovascular:Heart rate regular rhythm, Lungs & Thorax: Bilateral breath sounds clear to auscultation []tenderness to palpation over the most in inferior ribs on the right side. Abdomen: Bowel sounds normal, soft, no tenderness, no masses, no pulsatile masses. [] Skin: Warm, dry, no erythema, no rash. [] Back: No tenderness, no CVA tenderness. [] Extremities: No tenderness, no cyanosis, no clubbing, ROM intact, no edema. [] Neurologic: Alert and oriented X 3, normal motor function, normal sensory function, no focal deficits noted. [] Psychologic: Affect normal, judgement normal, mood normal. [] Current Patient Data Vital Signs Vital Signs Date Time Temp Pulse Resp B/P (MAP) Pulse Ox O2 Delivery O2 Flow Rate FiO2 01/08/18 09:06 97.7 78 18 97 Room Air Lab Results Laboratory Tests Test 01/08/18 09:55 Urine Collection Type Unknown Urine Color Yellow Urine Clarity Clear Urine pH 6.0 Urine Specific [place] 1.015 Urine Protein Neg (NEG-TRACE) Urine Glucose (UA) Neg mg/dL (NEG) Urine Ketones (Stick) Neg mg/dL (NEG) Urine Blood Neg (NEG) Urine Nitrite Neg (NEG) Urine Bilirubin Neg (NEG) Urine Urobilinogen Dipstick 0.2 mg/dL (0.2 mg/dL) Urine Leukocyte Esterase Trace (NEG) Urine RBC 0 /HPF (0-2) Urine WBC Occ /HPF (0-4) Urine Squamous Epithelial Cells Occ /LPF Urine Bacteria 0 /HPF (0-FEW) EKG EKG [] Radiology/Procedures Radiology/Procedures Chest x-ray Impressions: Tumors noted in the area where her pain is. No acute fractures and no acute cardiopulmonary process noted Course & Med Decision Making Course & Med Decision Making Pertinent Labs and Imaging studies reviewed. (See chart for details) [] Dragon Disclaimer Dragon Disclaimer This electronic medical record was generated, in whole or in part, using a voice recognition dictation system. Departure Departure: Impression: Primary Impression: Musculoskeletal pain Additional Impression: Maffucci syndrome Disposition: 01 HOME, SELF-CARE Condition: STABLE Referrals: [facility] (PCP) Patient Instructions: Rib Contusion Additional Instructions: Nancy was seen in the emergency department for rib/side pain and cough. No emergency medical condition was found on history or physical exam. She did have an x-ray of her chest which showed bony tumors in the area of her pain but no pneumonia or other acute process. Her pain was most consistent with musculoskeletal pain. She was encouraged to use lidocaine patches as needed. She was also encouraged follow-up with her primary care doctor as needed for further management. Problem Qualifiers OLEGARIO NOEL MD Jan 08, 2018 10:17
[2018-01-08 10:20] LABS: BACTERIA,URINE 0 /HPF (0-FEW); BILIRUBIN,URINE NEG (NEG); CLARITY,URINE CLEAR; COLOR,URINE YELLOW; GLUCOSE,URINE NEG (NEG); NITRITE,URINE NEG (NEG); RBC,URINE 0 /HPF (0-2); SQUAMOUS EPITHELIAL CELL,UR OCC /LPF; UROBILINOGEN,URINE 0.2 mg/dL (0.2 mg/dL); WBC,URINE OCC /HPF (0-4)
[2018-01-08] MEDS ORDERED: OXYC-328 PO (11:22)
[2018-01-08 11:25] VITALS: BP 121/77
[2018-01-08] MEDS ORDERED: oxyCODONE/APAP 5/325 1 TAB TABLET PO ONE (11:50)
[2018-01-08] MEDS ORDERED: oxyCODONE/APAP 10/325 1 TAB TABLET PO ONE (12:00)
[2018-01-08] MEDS ORDERED: PATCH REMOVAL. MC SCH (21:00)
== END 2018-01-08 11:45 | disposition home or self-care (01) ==
LOC: ER 08:31
DX: R07.81 Pleurodynia (principal); Q78.4 Enchondromatosis; F17.200 Nicotine dependence, unspecified, uncomplicated; F12.10 Cannabis abuse, uncomplicated; Z88.1 Allergy status to other antibiotic agents; Z88.8 Allergy status to other drugs, medicaments and biological substances
CPT/HCPCS: 71101; 81001; 87086; 99285-25

== ENCOUNTER 2018-01-09 20:42 | Emergency (ER) | payer MEDICARE, OTHER ==
[~2018-01-09] VITALS: Ht 322.6 cm; Wt 101.0 kg
[~2018-01-09 20:42] MED LIST changes: +OXYC-328 PO
--- NOTE | 2018-01-09 21:15 | ED.ADGEN ---
Past History Past Medical History: Cancer, Other Additional Past Medical Histor: chronic right upper extremity edema, chronic elevated CK Past Surgical History: Cancer Surgery, Cholecystectomy, Hysterectomy, Other Smoking: Less than 1pk/day Alcohol Use: None Drug Use: Marijuana Adult General Chief Complaint Chief Complaint ".. I having some chest pain... I was her the other day... I had been coughing... and I got this bad pain here... on my flank.."..." It is still hurting really bad..." HPI HPI Patient is a 37 year old female who presents with above hx and complaints Rt. flank pain. Pt seen on 01/08/18. Chart and x-rays reviewed from that visit. Patient has a significant medical history with history of thyroid cancer and thyroidectomy Hx of lt ovarian and uterine cancer at age 16 with surgical removal. History of colectomy for diverticulosis. History of multiple tumors . History of chronic lymphedema right arm. Hx. of Maffucci syndrome. Pt. follows at [place] and for her tumors. Pt. last CT was approximately 1 yr ago and to have CT monitor of her pulmonary nodules. Patient denies any trauma other than a severe coughing episodes which initiated the sharp pain on her right flank. Patient does continue to smoke. Review of Systems Review of Systems Constitutional: Denies fever or chills [] Eyes: Denies change in visual acuity, redness, or eye pain [] HENT: Denies nasal congestion or sore throat [] Respiratory: Denies cough or shortness of breath []complaints of right chest wall tenderness Cardiovascular: No additional information not addressed in HPI [] GI: Denies abdominal pain, nausea, vomiting, bloody stools or diarrhea [] : Denies dysuria or hematuria [] Musculoskeletal: Denies back pain or joint pain [] Integument: Denies rash or skin lesions [] Neurologic: Denies headache, focal weakness or sensory changes [] Endocrine: Denies polyuria or polydipsia [] All other systems were reviewed and found to be within normal limits, except as documented in this note. Family History Family History Noncontributory Current Medications Current Medications Current Medications Medications (Trade) Dose Ordered Sig/Pau Start Time Stop Time Status Last Admin Dose Admin Info (Do NOT chart on this entry -- for MONITORING) 1 each PRN DAILY PRN 01/09/18 23:15 01/10/18 02:18 DC Iohexol (Omnipaque 300 Mg/ml) 75 ml 1X ONCE 01/09/18 23:15 01/09/18 23:16 DC 01/10/18 00:11 75 ML Ketorolac Tromethamine (Toradol) 30 mg 1X ONCE 01/09/18 23:15 01/09/18 23:16 DC 01/09/18 23:25 30 MG Lactated Ringer's 1,000 ml @ 1,000 mls/hr Q1H 01/09/18 23:15 01/10/18 00:14 DC 01/09/18 23:15 1,000 MLS/HR Morphine Sulfate (Morphine 10mg Syringe) 10 mg 1X ONCE 01/10/18 02:30 01/10/18 02:30 DC 01/10/18 02:06 10 MG Ondansetron HCl (Zofran) 8 mg 1X ONCE 01/09/18 23:15 01/09/18 23:16 DC 01/09/18 23:25 8 MG Tetanus/ Diphtheria Toxoids Adsorbed (Tenivac Vial) 0.5 ml ONCE ONCE 01/09/18 22:00 01/09/18 22:59 DC Allergies Allergies Allergies Coded Allergies Type Severity Reaction Last Updated Verified Cephalexin Monohydrate Allergy Intermediate Rash 04/24/17 Yes cefazolin Allergy Intermediate 04/24/17 Yes enoxaparin sodium Allergy Intermediate Rash 04/24/17 Yes ampicillin Allergy Mild Rash 04/24/17 Yes clindamycin Allergy Mild Rash 04/24/17 Yes Physical Exam Physical Exam Constitutional: Moderately acute distress, non-toxic appearance. [] HENT: Normocephalic, atraumatic, bilateral external ears normal, oropharynx moist, no oral exudates, nose normal. [] Eyes: PERRLA, EOMI, conjunctiva normal, no discharge. [] Neck: Normal range of motion, no tenderness, supple, no stridor. [] Thyroidectomy scar Cardiovascular:Heart rate regular rhythm, no murmur [] Lungs & Thorax: Bilateral breath sounds equal at apex with few scattered wheezes on auscultation []. Reproducible pain right chest wall with anterior to posterior rib compression. Pain is reproduced with deep breaths and cough. Abdomen: Bowel sounds normal, soft, no tenderness, no masses, no pulsatile masses. [] Multiple old surgery scars. Obese Skin: Warm, dry, no erythema, no rash. [] Back: No tenderness, no CVA tenderness. Surgery scar Lt. shoulder Extremities: No tenderness, no cyanosis, no clubbing, ROM intact, no edema. [] No cording appreciated in legs Neurologic: Alert and oriented X 3, normal motor function, normal sensory function, no focal deficits noted. [] Psychologic: Affect very anxious, judgement normal, mood normal. [] Current Patient Data Vital Signs Vital Signs Date Time Temp Pulse Resp B/P (MAP) Pulse Ox O2 Delivery O2 Flow Rate FiO2 01/10/18 02:05 79 24 124/85 (98) 97 Room Air 01/09/18 21:30 98.5 Lab Results Laboratory Tests Test 01/09/18 20:37 01/09/18 21:20 01/09/18 23:19 POC Urine HCG, Qualitative hcg negative (Negative) Urine Collection Type Unknown Urine Color Yellow Urine Clarity Clear Urine pH 6.5 Urine Specific [place] 1.020 Urine Protein Neg (NEG-TRACE) Urine Glucose (UA) Neg mg/dL (NEG) Urine Ketones (Stick) Neg mg/dL (NEG) Urine Blood Neg (NEG) Urine Nitrite Neg (NEG) Urine Bilirubin Neg (NEG) Urine Urobilinogen Dipstick 0.2 mg/dL (0.2 mg/dL) Urine Leukocyte Esterase Neg (NEG) Urine RBC 0 /HPF (0-2) Urine WBC 0 /HPF (0-4) Urine Squamous Epithelial Cells Occ /LPF Urine Bacteria 0 /HPF (0-FEW) Urine Opiates Screen Neg (NEG) Urine Methadone Screen Neg (NEG) Urine Barbiturates Neg (NEG) Urine Phencyclidine Screen Neg (NEG) Urine Amphetamine/Methamphetamine Neg (NEG) Urine Benzodiazepines Screen Pos (NEG) Urine Cocaine Screen Neg (NEG) Urine Cannabinoids Screen Pos (NEG) Urine Ethyl Alcohol Neg (NEG) White Blood Count 13.0 x10^3/uL (4.0-11.0) H Red Blood Count 4.38 x10^6/uL (3.50-5.40) Hemoglobin 14.3 g/dL (12.0-15.5) Hematocrit 41.4 % (36.0-47.0) Mean Corpuscular Volume 95 fL (79-100) Mean Corpuscular Hemoglobin 33 pg (25-35) Mean Corpuscular Hemoglobin Concent 34 g/dL (31-37) Red Cell Distribution Width 13.8 % (11.5-14.5) Platelet Count 295 x10^3/uL (140-400) Neutrophils (%) (Auto) 52 % (31-73) Lymphocytes (%) (Auto) 38 % (24-48) Monocytes (%) (Auto) 7 % (0-9) Eosinophils (%) (Auto) 2 % (0-3) Basophils (%) (Auto) 1 % (0-3) Neutrophils # (Auto) 6.8 x10^3uL (1.8-7.7) Lymphocytes # (Auto) 4.9 x10^3/uL (1.0-4.8) H Monocytes # (Auto) 0.9 x10^3/uL (0.0-1.1) Eosinophils # (Auto) 0.3 x10^3/uL (0.0-0.7) Basophils # (Auto) 0.1 x10^3/uL (0.0-0.2) Prothrombin Time 29.1 SEC (9.4-11.4) H Prothrombin Time INR 2.9 (0.9-1.1) H PTT 36 SEC (23-33) H D-Dimer (Hartiha) < 0.19 mg/L (0.00-0.50) Maternal Serum HCG Beta Subunit 2 mIU/mL (0-6) Sodium Level 137 mmol/L (136-145) Potassium Level 3.9 mmol/L (3.5-5.1) Chloride Level 104 mmol/L (98-107) Carbon Dioxide Level 26 mmol/L (21-32) Anion Gap 7 (6-14) Blood Urea Nitrogen 15 mg/dL (7-20) Creatinine 1.0 mg/dL (0.6-1.0) Estimated GFR (Cockcroft-Gault) 62.7 Glucose Level 94 mg/dL (70-99) Calcium Level 8.7 mg/dL (8.5-10.1) Magnesium Level 1.9 mg/dL (1.8-2.4) Total Bilirubin 0.2 mg/dL (0.2-1.0) Direct Bilirubin < 0.1 mg/dL (0.0-0.2) Aspartate Amino Transferase (AST) 13 U/L (15-37) L Alanine Aminotransferase (ALT) 24 U/L (14-59) Alkaline Phosphatase 109 U/L (46-116) Creatine Kinase 62 U/L (26-192) Creatine Kinase MB (Mass) < 0.5 ng/mL (0.0-3.6) Creatine Kinase MB Relative Index 0.8 % (0-4) Troponin I Quantitative < 0.017 ng/mL (0-0.055) UY-Dei-Q-Type Natriuretic Peptide 19 pg/mL (0-124) Total Protein 7.7 g/dL (6.4-8.2) Albumin 3.4 g/dL (3.4-5.0) Lipase 228 U/L (73-393) EKG EKG My interpretation EKG shows a sinus rhythm at 72 bpm with no acute morphology[] Radiology/Procedures Radiology/Procedures CT chest shows multiple pulmonary nodules. No pneumothorax. No obvious pulmonary embolism .Findings somewhat consistent with metastatic thyroid cancer. See formal report[] Course & Med Decision Making Course & Med Decision Making Pertinent Labs and Imaging studies reviewed. (See chart for details). Keep follow-up with primary care. Patient keep follow-up at for further evaluation of her pulmonary nodules and possible metastatic thyroid cancer. Patient encouraged to stop smoking. Patient take Tylenol and ibuprofen for pain for marked pain may take Vicoprofen up 4 times a day. Return if any concerns. [] Final Impression Final Impression 1. Chest wall pain 2. Multiple pulmonary nodules-possible metastatic thyroid cancer 3. Mild leukocytosis 4. Tobacco and marijuana use 5. Therapeutic INR[] 6. Hx. of Maffucci Syndrome- Problems: Dragon Disclaimer Dragon Disclaimer This electronic medical record was generated, in whole or in part, using a voice recognition dictation system. HERIBERTO GARCIA MD Jan 09, 2018 21:15
[2018-01-09] MEDS ORDERED: TETANUS AND DIPHTHERIA TOX/PF 0.5 ML VIAL. VAX IM ONE (22:00)
[2018-01-09] MEDS ORDERED: KETOROLAC 30 MG/ML VIAL. IV ONE (23:15)
[2018-01-09] MEDS ORDERED: CONTRAST GIVEN MC PRN (23:15)
[2018-01-09] MEDS ORDERED: IOHEXOL 300 MG/ML 75 ML VIAL. IV ONE (23:15)
[2018-01-09] MEDS ORDERED: IV RINGERS SOLUTION,LACTATED 1,000 ML IV SCH (23:15)
[2018-01-09] MEDS ORDERED: ONDANSETRON PF 4 MG/2 ML VIAL. IV ONE (23:15)
--- NOTE | 2018-01-09 23:16 | EKG ---
[address] [address] Test Date: 2018-01-09 Test Time: 23:10:14 Pat Name: RICHARD STRICKLADN Department: Room: Gender: F Private Secretary: GENEVIEVE : 1980 Requested By: HERIBERTO GARCIA Order Number: [id number] Reading MD: Measurements Intervals [place] Rate: 72 P: 36 TN: 154 QRS: 7 QRSD: 92 T: 12 QT: 392 QTc: 431 Interpretive Statements SINUS RHYTHM NORMAL ECG RI6.01 Compared to ECG 04/04/2016 05:14:08 No significant changes
[2018-01-09 23:32] LABS: BASO # 0.1 x10^3/uL (0.0-0.2); BASO % 1 % (0-3); EOS # 0.3 x10^3/uL (0.0-0.7); EOS % 2 % (0-3); HEMATOCRIT 41.4 % (36.0-47.0); HEMOGLOBIN 14.3 g/dL (12.0-15.5); LYMPH # 4.9 x10^3/uL (1.0-4.8); LYMPH % 38 % (24-48); MEAN CORPUSCULAR HEMOGLOBIN 33 pg (25-35); MEAN CORPUSCULAR HGB CONC 34 g/dL (31-37); MEAN CORPUSCULAR VOLUME 95 fL (79-100); MONO # 0.9 x10^3/uL (0.0-1.1); MONO % 7 % (0-9); NEUT # 6.8 x10^3uL (1.8-7.7); NEUT % 52 % (31-73); PLATELET COUNT 295 x10^3/uL (140-400); RED BLOOD COUNT 4.38 x10^6/uL (3.50-5.40); RED CELL DISTRIBUTION WIDTH 13.8 % (11.5-14.5)
[2018-01-09 23:35] LABS: BACTERIA,URINE 0 /HPF (0-FEW); BARBITURATES NEG (NEG); BENZODIAZEPINES POS (NEG); BILIRUBIN,URINE NEG (NEG); CANNABINOIDS POS (NEG); CLARITY,URINE CLEAR; COCAINE NEG (NEG); COLOR,URINE YELLOW; GLUCOSE,URINE NEG (NEG); METHADONE NEG (NEG); NITRITE,URINE NEG (NEG); OPIATES NEG (NEG); PHENCYCLIDINE NEG (NEG); RBC,URINE 0 /HPF (0-2); SQUAMOUS EPITHELIAL CELL,UR OCC /LPF; UROBILINOGEN,URINE 0.2 mg/dL (0.2 mg/dL); WBC,URINE 0 /HPF (0-4)
[2018-01-09 23:36] LABS: AMPHETAMINE/METHAMPHETAMINE NEG (NEG)
[2018-01-09 23:58] LABS: ALBUMIN 3.4 g/dL (3.4-5.0); ALK PHOS 109 U/L (46-116); ALT (SGPT) 24 U/L (14-59); ANION GAP 7 (6-14); AST (SGOT) 13 U/L (15-37); BLOOD UREA NITROGEN 15 mg/dL (7-20); CALCIUM 8.7 mg/dL (8.5-10.1); CARBON DIOXIDE 26 mmol/L (21-32); CHLORIDE 104 mmol/L (98-107); GFR 62.7; GLUCOSE 94 mg/dL (70-99); LIPASE 228 U/L (73-393); MAGNESIUM 1.9 mg/dL (1.8-2.4); POTASSIUM 3.9 mmol/L (3.5-5.1); SODIUM 137 mmol/L (136-145); TOTAL BILIRUBIN 0.2 mg/dL (0.2-1.0); TOTAL PROTEIN 7.7 g/dL (6.4-8.2)
[2018-01-09 23:59] LABS: DIRECT BILIRUBIN < 0.1 mg/dL (0.0-0.2)
--- NOTE | 2018-01-10 01:21 | RAD ---
CTA Chest with contrast: Clinical History: Omni 300, 75ml IV (initial leak in IV w/15ml given, restarted contrast with dose of 60ml) Chest pain, right side upper back pain. Hx thyroid cancer, brain tumor, ovarian cancer, oophrectomy . Axial helical images of the chest were obtained after the administration of 75 cc of IV Omni 350 and timed appropriately for a pulmonary arterial study. Conventional axial reconstruction was performed in addition to coronal, sagittal and bilateral oblique MIP (maximum intensity projection). This study was ordered to detect possible pulmonary embolism. There are no filling defects to suggest pulmonary embolism. The more peripheral subsegmental pulmonary arteries are not well opacified limiting our sensitivity for small peripheral pulmonary emboli. There are numerous subcentimeter pulmonary nodules diffusely. There is no mediastinal or hilar lymphadenopathy. The thoracic aorta appears normal. Impression: 1. No evidence of pulmonary embolism. 2. Numerous pulmonary nodules suspicious for metastatic thyroid cancer. PQRS Compliance Statement: One or more of the following individualized dose reduction techniques were utilized for this examination: 1. Automated exposure control 2. Adjustment of the mA and/or kV according to patient size 3. Use of iterative reconstruction technique Electronically signed by: Curtis Ferro III, MD (01/10/2018 1:17 AM) [facility]
[2018-01-10] MEDS ORDERED: HYDR-79 PO (01:54)
[2018-01-10 02:05] VITALS: BP 124/85
[2018-01-10] MEDS ORDERED: MORPHINE SULFATE 10 MG/ML SYRINGE. SQ ONE (02:30)
== END 2018-01-10 02:12 | disposition home or self-care (01) ==
LOC: ER 20:42
DX: R07.89 Other chest pain (principal); R91.8 Other nonspecific abnormal finding of lung field; D72.829 Elevated white blood cell count, unspecified; F17.210 Nicotine dependence, cigarettes, uncomplicated; F12.90 Cannabis use, unspecified, uncomplicated; R79.1 Abnormal coagulation profile; Q78.4 Enchondromatosis; E89.0 Postprocedural hypothyroidism; Z90.49 Acquired absence of other specified parts of digestive tract; Z90.710 Acquired absence of both cervix and uterus; Z88.1 Allergy status to other antibiotic agents; Z88.8 Allergy status to other drugs, medicaments and biological substances
CPT/HCPCS: 36415; 71275; 80048; 80076; 80307; 81001; 81025; 82553; 83690; 83735; 83880; 84443; 84484; 84702; 85025; 85379; 85610; 85730; 93005; 96361; 96372; 96374; 96375; 99285; J1885; J2270; J2405; J7120; Q9967; G0479

== ENCOUNTER 2018-01-30 21:17 | Emergency (ER) | payer MEDICARE, OTHER ==
[~2018-01-30] VITALS: Ht 170.2 cm; Wt 102.1 kg
[~2018-01-30 21:17] MED LIST changes: -METF500T4 PO; +METF500T5 PO; -PROC10TA PO; +PROC10TA2 PO; +RANI150T21 PO; -RANI150T6 PO; -WARF2TAB7 PO; +WARF2TAB96 PO; +WARF4TAB64 PO; -WARF4TAB7 PO; +WARF6TAB47 PO; -WARF6TAB7 PO
[2018-01-30 21:21] VITALS: BP 118/74
--- NOTE | 2018-01-30 21:26 | ED.ADGEN ---
Past History Past Medical History: Anxiety, Cancer, Diverticulitis, Diabetes, Gallstones, Hypertension, Hypothyroid, Other Additional Past Medical Histor: chronic right upper extremity edema, chronic elevated CK Past Surgical History: Cancer Surgery, Cholecystectomy, Colectomy, Hysterectomy , Oophorectomy, Other Smoking: Less than 1pk/day Alcohol Use: None Drug Use: Marijuana Adult General Chief Complaint Chief Complaint ".. I am have some pain in my chest.. it at a tumor site..and I have not gone to the bathroom for more than a week..." HPI HPI Patient is a 38 year old female who presents with above hx and complaints point chest wall pain and abdomen pain from constipation. Pt. has hx of Maffucci syndrome. Hx. of multiple tumors and cancer. Pt. Hx. of metastatic thyroid cancer. Pt. had hx of Thyroidectomy , Ovarian, and Uterine cancer and surgery at age 16. Pt. has hx of anxiety, diverticulitis, chronic constipation, DM, Chronic Lymphatic edema, HTN, Chronic elevated CK, and depression. Pt. Does continue to smoke. Pt. follows at [place] and for her metastatic cancer. Pt. did take some morphine earlier tonight. Pt. has three schedule apts at this week. Pt. is still passing gas and did eat dinner at 1800 tonight. Pt. has not had a bowel movement for a week. No hx of travel or ill contacts. Review of Systems Review of Systems Constitutional: Denies fever or chills [] Eyes: Denies change in visual acuity, redness, or eye pain [] HENT: Denies nasal congestion or sore throat [] Respiratory: Denies cough or shortness of breath []Marked pain Rt. Post axillary line- point tenderness. Cardiovascular: No additional information not addressed in HPI [] GI: Denies abdominal pain, nausea, vomiting, bloody stools or diarrhea [] Complaints of constipation. : Denies dysuria or hematuria [] Musculoskeletal: Denies back pain or joint pain [] Integument: Denies rash or skin lesions [] Neurologic: Denies headache, focal weakness or sensory changes [] Endocrine: Denies polyuria or polydipsia [] All other systems were reviewed and found to be within normal limits, except as documented in this note. Family History Family History Non-contributory Current Medications Current Medications Current Medications Medications (Trade) Dose Ordered Sig/Pau Start Time Stop Time Status Last Admin Dose Admin Magnesium Citrate (Citroma) 296 ml 1X ONCE 01/30/18 22:15 01/30/18 22:16 DC 01/30/18 22:15 296 ML Allergies Allergies Allergies Coded Allergies Type Severity Reaction Last Updated Verified Cephalexin Monohydrate Allergy Intermediate Rash 04/24/17 Yes cefazolin Allergy Intermediate 04/24/17 Yes enoxaparin sodium Allergy Intermediate Rash 04/24/17 Yes ampicillin Allergy Mild Rash 04/24/17 Yes clindamycin Allergy Mild Rash 04/24/17 Yes Physical Exam Physical Exam Constitutional: Moderately acute distress, non-toxic appearance. [] HENT: Normocephalic, atraumatic, bilateral external ears normal, oropharynx moist, no oral exudates, nose normal. [] Eyes: PERRLA, EOMI, conjunctiva normal, no discharge. [] Neck: Normal range of motion, no tenderness, supple, no stridor. [] Old surgery scar. Cardiovascular:Heart rate regular rhythm, no murmur [] Lungs & Thorax: Bilateral breath sounds equal at apex on auscultation []Point tenderness posterior axillary line. Abdomen: Bowel sounds decreased, soft, some mild generalized tenderness, no masses, no pulsatile masses. Multiple surgery scars. Declines rectal at this time. Distended. Skin: Warm, dry, no erythema, no rash. [] Back: No tenderness, no CVA tenderness. [] Extremities: No tenderness, no cyanosis, no clubbing, ROM intact, no edema. [] Neurologic: Alert and oriented X 3, normal motor function, normal sensory function, no focal deficits noted. [] Psychologic: Affect normal, judgement normal, mood normal. [] Current Patient Data Vital Signs Vital Signs Date Time Temp Pulse Resp B/P (MAP) Pulse Ox O2 Delivery O2 Flow Rate FiO2 01/30/18 21:21 97.8 79 20 94 Room Air 01/30/18 21:21 118/74 (89) EKG EKG [] Radiology/Procedures Radiology/Procedures My interpretation of Acute abd. show moderate retained stool that fills the colon. Multiple surgery clips. Non-obstructive pattern. Chest portion shows multiple nodular masses. Present on prior CT. Does appear to have a fx. thru. a Rt. rib 12 nodular mass on rib- (This is area of her point tenderness. )[] Course & Med Decision Making Course & Med Decision Making Pertinent Labs and Imaging studies reviewed. (See chart for details). Pt. to continue current meds as directed. To keep follow up with - surgery and cancer center. Return to clear fluid diet until stooling. Start Golyte- one cup with fruit juice every hour until stooling. Pt. once stooling save remaining Golyte in refrigerator and save for further episodes of constipation. Continue home morphine as previously directed. Return if any concerns. But must keep follow-ups at and [place]. [] Final Impression Final Impression 1. Abdomen Pain-Constipation 2. Chest Pain 3. Hx Multiple Metastatic Thyroid Tumors 4. Hx. Malfucci Syndrome[] Dragon Disclaimer Dragon Disclaimer This electronic medical record was generated, in whole or in part, using a voice recognition dictation system. HERIBERTO GARCIA MD January 30, 2018 21:26
[2018-01-30] MEDS ORDERED: MAGNESIUM CITRATE 296 ML SOLUTION. PO ONE (22:15)
--- NOTE | 2018-01-30 22:15 | RAD ---
CHEST PA LATERAL, ABDOMEN SUPINE UPRIGHT History: Pain. Comparison: None are available Two-view chest Cardiac silhouette not enlarged. There are some nodular opacities in the right lung base. This could be an infiltrate, or related to the nodules which were identified on a recent CT chest. No consolidative infiltrate is seen. No pneumothorax. No large effusion. IMPRESSION: Ill-defined nodular opacities in the right lung base. Considerations include infiltrate, or pulmonary nodules. Recommend follow-up. 3 view abdomen No evidence of free intraperitoneal gas on the upright view. Bowel gas pattern is nonobstructive. There is mild/moderate retained stool throughout the colon. Multiple calcifications are likely phleboliths. Surgical clips in the right abdomen. IMPRESSION: Constipation. Bowel gas pattern is nonobstructive. Electronically signed by: Matthew Frank MD (01/30/2018 10:12 PM) [facility]
[2018-01-30] MEDS ORDERED: PEG4000S8 PO (22:52)
== END 2018-01-30 23:16 | disposition home or self-care (01) ==
LOC: ER 21:17
DX: K59.09 Other constipation (principal); R07.89 Other chest pain; F41.9 Anxiety disorder, unspecified; E11.9 Type 2 diabetes mellitus without complications; I10 Essential (primary) hypertension; F17.210 Nicotine dependence, cigarettes, uncomplicated; F12.10 Cannabis abuse, uncomplicated; E89.0 Postprocedural hypothyroidism; F32.9 Major depressive disorder, single episode, unspecified; Z88.1 Allergy status to other antibiotic agents; Z88.8 Allergy status to other drugs, medicaments and biological substances
CPT/HCPCS: 71046; 74021; 99284

== ENCOUNTER 2018-04-05 08:42 | Emergency (ER) | payer MEDICARE, OTHER ==
[~2018-04-05] VITALS: Ht 170.2 cm; Wt 99.8 kg
[~2018-04-05 08:42] MED LIST changes: +PEG4000S8 PO; +TRAZ-86 PO; -TRAZ-90 PO
[2018-04-05] MEDS ORDERED: ASPIRIN 81 MG TAB.CHEW PO ONE (09:00)
--- NOTE | 2018-04-05 09:09 | PHYS DOC ---
Past History Past Medical History: Anxiety, Cancer, Diverticulitis, Diabetes, Gallstones, Hypertension, Hypothyroid, Other Additional Past Medical Histor: chronic right upper extremity edema, chronic elevated CK Past Surgical History: Cancer Surgery, Cholecystectomy, Colectomy, Hysterectomy , Oophorectomy, Other Smoking: Less than 1pk/day Alcohol Use: None Drug Use: Marijuana Adult General Chief Complaint Chief Complaint: CHEST PAIN HPI HPI 38-year-old female patient with history of PE on Coumadin complaining of right side chest sharp and heaviness pain that woke her up at 3 AM as a constant pain with radiation to her back. Patient rated her pain 8/10 and states the pain getting worse with taking deep breaths. Patient complaining of mild shortness of breath and dizziness and generalized weakness without nausea, fever and chills, injury. Patient states she has chronic palpitation is new change today. Patient has had nonproductive cough for the last 2 days. Patient had INR checked today that was 1.8 and is concern for possible PE. Patient did not have recent immobilization. Review of Systems Review of Systems Constitutional: Denies fever or chills [] Eyes: Denies change in visual acuity, redness, or eye pain [] HENT: Denies nasal congestion or sore throat [] Respiratory: Reports cough and shortness of breath Cardiovascular: No additional information not addressed in HPI [] GI: Denies abdominal pain, nausea, vomiting, bloody stools or diarrhea [] : Denies dysuria or hematuria [] Musculoskeletal: Denies back pain or joint pain [] Integument: Denies rash or skin lesions [] Neurologic: Denies headache, focal weakness or sensory changes reports dizziness [] Endocrine: Denies polyuria or polydipsia [] All other systems were reviewed and found to be within normal limits, except as documented in this note. Current Medications Current Medications Current Medications Medications (Trade) Dose Ordered Sig/Pau Start Time Stop Time Status Last Admin Dose Admin Aspirin (Children'S Aspirin) 324 mg 1X ONCE 04/05/18 09:00 04/05/18 09:01 UNV Allergies Allergies Allergies Coded Allergies Type Severity Reaction Last Updated Verified Cephalexin Monohydrate Allergy Intermediate Rash 04/24/17 Yes cefazolin Allergy Intermediate 04/24/17 Yes enoxaparin sodium Allergy Intermediate Rash 04/24/17 Yes ampicillin Allergy Mild Rash 04/24/17 Yes clindamycin Allergy Mild Rash 04/24/17 Yes Physical Exam Physical Exam Constitutional: Well developed, well nourished, mild distress, non-toxic appearance. [] HENT: Normocephalic, atraumatic, oropharynx moist, no oral exudates, nose normal. [] Eyes: PERRLA, EOMI, conjunctiva normal, no discharge. [] Neck: Normal range of motion, no tenderness, supple, no stridor. [] Cardiovascular:Heart rate regular rhythm, no murmur [] Lungs & Thorax: Bilateral breath sounds clear to auscultation, reproducible right-sided chest pain [] Abdomen: Bowel sounds normal, soft, no tenderness, no masses, no pulsatile masses. [] Skin: Warm, dry, no erythema, no rash. [] Back: No tenderness, no CVA tenderness. [] Extremities: No tenderness, no cyanosis, no clubbing, ROM intact, no edema. [] Neurologic: Alert and oriented X 3, normal motor function, normal sensory function, no focal deficits noted. [] Psychologic: Affect anxious, judgement normal, mood normal. [] Current Patient Data Vital Signs Vital Signs Date Time Temp Pulse Resp B/P (MAP) Pulse Ox O2 Delivery O2 Flow Rate FiO2 04/05/18 08:55 98.5 76 22 98 Room Air EKG EKG EKG interpreted by me. EKG at 852 showed normal sinus rhythm at rate of 75, leftward axis, T-wave abnormalities in anterior leads, poor R-wave progress in anteroseptal leads, no acute ST and T-wave abnormalities. Radiology/Procedures Radiology/Procedures [][address] [address] IMAGING REPORT Signed PATIENT: RICHARD STRICKLAND ACCOUNT: [id number] : 1980 LOCATION: ER AGE: 38 SEX: F EXAM STATUS: REG ER ORD. PHYSICIAN: BLANCA JULIAN MD REASON: right chest pain PROCEDURE: PORTABLE CHEST 1V Chest radiograph 04/05/2018 8:51 AM INDICATION: Chest pain COMPARISON: Chest radiograph January 30, 2018, CT chest January 10, 2018 TECHNIQUE: Portable upright frontal view of the chest is provided. FINDINGS: The cardiomediastinal silhouette is within normal limits. There are no pleural effusions. There is no pulmonary vascular congestion. There is no pneumothorax. Similar distribution of nodular opacities in the right lower lobe. Additional subcentimeter nodules identified by CT are not resolved by radiographs. No new airspace disease is visualized. No significant osseous abnormality is identified. IMPRESSION: Similar distribution of numerous subcentimeter nodular opacities, not significantly change since prior CT from January 10, 2018. No new pulmonary opacity is visualized. Electronically signed by: Patricia Coles MD (04/05/2018 9:34 AM) [id number] DICTATED AND SIGNED BY: PATRICIA COLES MD DATE: 04/05/18922 CC: LEIGH COLLINS; BLANCA JULIAN MD ~ Course & Med Decision Making Course & Med Decision Making Pertinent Labs and Imaging studies reviewed. (See chart for details) Evaluation of patient in ER showed 38-year-old female patient with history of PE on Coumadin with complaining of right chest wall pain. Patient had negative d -dimer and INR of 1.8 and states her primary care physician supposed to increase the dose of Coumadin today. Patient felt better with Toradol in ER. Patient quit smoking 2 days ago. Plan discharge patient home to diagnose of chest wall pain and bronchitis. Dragon Disclaimer Dragon Disclaimer This electronic medical record was generated, in whole or in part, using a voice recognition dictation system. Departure Departure: Impression: Primary Impression: Pain, chest wall Additional Impressions: Bronchitis History of DVT (deep vein thrombosis) History of pulmonary embolism Pulmonary nodule Anticoagulated on Coumadin Anxiety Disposition: 01 HOME, SELF-CARE (at 1049) Condition: IMPROVED Referrals: LEIGH COLLINS (PCP) Patient Instructions: Acute Bronchitis, Chest Wall Pain Additional Instructions: Drink plenty of liquids Follow-up with your primary care physician in 3-5 days Return to ER if not getting better Scripts Azithromycin (ZITHROMAX) 250 Mg Tablet 1 PKG PO UD, #1 PKG Prov: BLANCA JULIAN MD 04/05/18 Problem Qualifiers BLANCA JULIAN MD Apr 05, 2018 09:09
--- NOTE | 2018-04-05 09:15 | EKG ---
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
[2018-04-05 09:23] LABS: BASO # 0.1 x10^3/uL (0.0-0.2); BASO % 1 % (0-3); EOS # 0.3 x10^3/uL (0.0-0.7); EOS % 2 % (0-3); HEMOGLOBIN 14.1 g/dL (12.0-15.5); LYMPH # 3.3 x10^3/uL (1.0-4.8); LYMPH % 24 % (24-48); MEAN CORPUSCULAR HEMOGLOBIN 33 pg (25-35); MEAN CORPUSCULAR HGB CONC 34 g/dL (31-37); MEAN CORPUSCULAR VOLUME 95 fL (79-100); MONO # 0.7 x10^3/uL (0.0-1.1); MONO % 5 % (0-9); NEUT # 9.4 x10^3uL (1.8-7.7); NEUT % 68 % (31-73); PLATELET COUNT 318 x10^3/uL (140-400); RED CELL DISTRIBUTION WIDTH 13.5 % (11.5-14.5); WHITE BLOOD COUNT 13.9 x10^3/uL (4.0-11.0)
--- NOTE | 2018-04-05 09:37 | RAD ---
Chest radiograph 04/05/2018 8:51 AM INDICATION: Chest pain COMPARISON: Chest radiograph January 30, 2018, CT chest January 10, 2018 TECHNIQUE: Portable upright frontal view of the chest is provided. FINDINGS: The cardiomediastinal silhouette is within normal limits. There are no pleural effusions. There is no pulmonary vascular congestion. There is no pneumothorax. Similar distribution of nodular opacities in the right lower lobe. Additional subcentimeter nodules identified by CT are not resolved by radiographs. No new airspace disease is visualized. No significant osseous abnormality is identified. IMPRESSION: Similar distribution of numerous subcentimeter nodular opacities, not significantly change since prior CT from January 10, 2018. No new pulmonary opacity is visualized. Electronically signed by: Jennifer Slater MD (04/05/2018 9:34 AM) [id number]
[2018-04-05 10:15] LABS: ALBUMIN 3.6 g/dL (3.4-5.0); ALBUMIN/GLOBULIN RATIO 0.8 (1.0-1.7); ALK PHOS 93 U/L (46-116); ALT (SGPT) 26 U/L (14-59); ANION GAP 10 (6-14); AST (SGOT) 16 U/L (15-37); BLOOD UREA NITROGEN 14 mg/dL (7-20); BUN/CREATININE RATIO 14 (6-20); CARBON DIOXIDE 22 mmol/L (21-32); CHLORIDE 105 mmol/L (98-107); GFR 62.4; GLUCOSE 119 mg/dL (70-99); POTASSIUM 3.9 mmol/L (3.5-5.1); SODIUM 137 mmol/L (136-145); TOTAL BILIRUBIN 0.4 mg/dL (0.2-1.0)
[2018-04-05] MEDS ORDERED: KETOROLAC 30 MG/ML VIAL. ONE (10:31)
[2018-04-05] MEDS ORDERED: AZIT250T PO (10:50)
[2018-04-05] MEDS ORDERED: KETOROLAC 30 MG/ML VIAL. IV ONE (11:00)
[2018-04-05 11:14] VITALS: BP 129/79
== END 2018-04-05 11:15 | disposition home or self-care (01) ==
LOC: ER 08:42
DX: R07.89 Other chest pain (principal); J40 Bronchitis, not specified as acute or chronic; R91.1 Solitary pulmonary nodule; R53.1 Weakness; F41.9 Anxiety disorder, unspecified; E11.9 Type 2 diabetes mellitus without complications; I10 Essential (primary) hypertension; E03.9 Hypothyroidism, unspecified; F17.200 Nicotine dependence, unspecified, uncomplicated; Z79.01 Long term (current) use of anticoagulants; Z86.718 Personal history of other venous thrombosis and embolism; Z86.711 Personal history of pulmonary embolism; Z88.1 Allergy status to other antibiotic agents; Z88.8 Allergy status to other drugs, medicaments and biological substances
CPT/HCPCS: 36415; 71045; 80053; 82553; 83880; 84484; 85025; 85379; 85610; 85730; 93005; 96374; 99285; J1885

== ENCOUNTER 2018-12-21 21:43 | Emergency (ER) | payer MEDICARE, OTHER ==
[~2018-12-21] VITALS: Ht 167.6 cm; Wt 97.5 kg
[~2018-12-21 21:43] MED LIST changes: +AZIT250T PO; -GABA600T2 PO; +GABA600T7 PO; -GABA800T2 PO; +GABA800T5 PO; +HYDR-1179 PO; -HYDR-2762 PO; +HYDR-2765 PO; -HYDR-79 PO; -HYDR1TAB12 PO; +HYDR1TAB13 PO; +METF500T16 PO; -METF500T5 PO; -OXYC-323 PO; -OXYC-328 PO; +OXYC1TAB15 PO; +OXYC1TAB22 PO
--- NOTE | 2018-12-21 22:04 | PHYS DOC ---
Past History Past Medical History: Anxiety, Cancer, Diverticulitis, Diabetes, Gallstones, Hypertension, Hypothyroid, Migraines, Other Additional Past Medical Histor: chronic right upper extremity edema, chronic elevated CK, DVT/PE Past Surgical History: Cancer Surgery, Cholecystectomy, Colectomy, Hysterectomy , Oophorectomy, Other Smoking: Less than 1pk/day Alcohol Use: None Drug Use: Marijuana Adult General Chief Complaint Chief Complaint: CHEST PAIN HPI HPI 38-year-old female presents with 2 hour history of right upper thoracic pain near scapula. Patient reports history of diabetes, high blood pressure, and high cholesterol. Denies known trauma. Denies fever or chills. Denies . Patient does report past nuchal history of PE/DVT for which she is currently treated with Coumadin. Patient does report compliance with her Coumadin. Patient also reports history of headache. Denies neck pain. Denies fever or chills. Review of Systems Review of Systems Constitutional: Denies fever or chills [] Eyes: Denies change in visual acuity, redness, or eye pain [] HENT: Denies nasal congestion or sore throat [] Respiratory: Denies cough or shortness of breath [] Cardiovascular: Reports chest pain; denies palpitations GI: Denies abdominal pain, nausea, vomiting, or diarrhea [] : Denies dysuria or hematuria [] Musculoskeletal: Denies back pain or joint pain [] Integument: Denies rash or skin lesions [] Neurologic: Reports headache; denies focal weakness or sensory changes [] Complete systems were reviewed and found to be within normal limits, except as documented in this note. Allergies Allergies Allergies Coded Allergies Type Severity Reaction Last Updated Verified Cephalexin Monohydrate Allergy Intermediate Rash 04/24/17 Yes cefazolin Allergy Intermediate 04/24/17 Yes enoxaparin sodium Allergy Intermediate Rash 04/24/17 Yes ampicillin Allergy Mild Rash 04/24/17 Yes clindamycin Allergy Mild Rash 04/24/17 Yes Physical Exam Physical Exam Constitutional: Well developed, well nourished, no acute distress, non-toxic appearance. [] HENT: Normocephalic, atraumatic, oropharynx moist Eyes: Conjunctiva normal, no discharge. [] Neck: Normal range of motion, no tenderness, supple, no meningeal signs Cardiovascular: Heart rate regular rhythm, no murmur [] Lungs & Thorax: Bilateral breath sounds clear to auscultation [] Abdomen: Soft, no tenderness Skin: Warm, dry, no erythema, no rash. [] Back: No tenderness, no CVA tenderness. [] Extremities: No tenderness, ROM intact, no edema. [] Neurologic: Alert and oriented X 3, no motor deficit, no sensory deficit, no focal deficits noted. [] Psychologic: Affect normal, judgement normal, mood normal. [] Current Patient Data Vital Signs Vital Signs Date Time Temp Pulse Resp B/P (MAP) Pulse Ox O2 Delivery O2 Flow Rate FiO2 12/21/18 21:43 98.6 89 22 97 Room Air EKG EKG @2151 ekg demonstrated normal sinus rhythm at a rate of 77 bpm, no ST elevation or signs of infarction Radiology/Procedures Radiology/Procedures PROCEDURE: CT ANGIOGRAPHY CHEST INDICATION: Omni 350 100cc: PE protocol: Chest pain tonight Hx: PE, cholecystectomy, hysterectomy, Thyroid, brain, and ovarian cancer, colectomy COMPARISON: January 10, 2018 TECHNIQUE: Axial CT images obtained through the chest. Intravenous contrast utilized. Angiogram 3D images processed per protocol. One or more of the following individualized dose reduction techniques were utilized for this examination: 1. Automated exposure control; 2. Adjustment of the mA and/or kV according to patient size; 3. Use of iterative reconstruction technique. FINDINGS: Numerous bilateral pulmonary nodules are again seen. Groundglass opacities of bilateral lungs most severe at lung bases appear slightly increased. Nodular thickening of the left adrenal gland at partially visualized upper abdomen measuring up to 2 cm. There is also nodular thickening of the left adrenal gland. Mediastinal lymphadenopathy. For example precarinal region lymph node measuring up to 12 mm short axis. Thoracic aorta is not aneurysmal. Portion of ascending thoracic aorta obscured by motion. Old right rib fracture with callus formation. There is some skin thickening overlying the right breast. Surgical clips at chest wall. Deformity of the left scapula with hypertrophic changes. Scattered sclerotic foci in some of the right ribs. There is also some sclerotic foci in the spine. No embolus in main, right main or left main pulmonary artery. Peripheral evaluation is limited secondary to motion obscuring the vessels. IMPRESSION: No embolus in main, right main or left main pulmonary artery. There is a large amount of motion which obscures the more peripheral vessels. Repeat demonstration of innumerable pulmonary nodules bilaterally which could be secondary to metastatic disease. There is also some enlarged lymph nodes within the mediastinum. Groundglass opacities bilaterally. Could be from pulmonary edema or small airway inflammation from infectious or inflammatory causes. There are some sclerotic foci in the osseous structures including the ribs and vertebral bodies with the majority of the T10 vertebral body affected.. Some of these could be secondary to bone islands however additional foci of metastatic disease is possible given the other findings. Adrenal nodules at partially visualized upper abdomen. Electronically signed by: Issac Edwards MD (12/22/2018 12:21 AM) [facility] Course & Med Decision Making Course & Med Decision Making 38 year old female with history of PE and on Warfarin presented due to chest pain. Patient denied any shortness of breath, hemoptysis, or pleuritic chest pain. EKG preformed and showed no signs of acute infarct. Labs and imaging obtained and posted to chart. INR was 5.1. d Initial troponin WNL. CTA demonstrated no PE in large vessels. Incidental CT findings of pulmonary nodules. A copy of CT results provided to patient to give to her PCP. HEART score 3. Presented option of admission or discharge and patient elected for close outpatient follow up. Repeat troponin WNL. Patient advised to hold Coumadin for next 2 days then follow up closely with your PCP vs cardiology. Patient stable for discharge with outpatient follow-up with PCP/Intelligence Director. Cardiology referral provided. Discussed findings and plan with patient and family, who acknowledge understanding and agreement. [] Dragon Disclaimer Dragon Disclaimer This electronic medical record was generated, in whole or in part, using a voice recognition dictation system. Departure Departure: Impression: Primary Impression: Chest pain Additional Impressions: Supratherapeutic INR Abnormal finding on CT scan Disposition: HOME, SELF-CARE Condition: STABLE Referrals: LEIGH COLLINS (PCP) SAUL COSTA MD Patient Instructions: Chest Pain (Nonspecific), [id number], Incidental Abdominal Radiological Finding Additional Instructions: Hold your coumadin for the next 2 days. Your INR was elevated. Problem Qualifiers Primary Impression: Chest pain Chest pain type: unspecified Qualified Codes: R07.9 - Chest pain, unspecified TOO SIMPSON DO Dec 21, 2018 22:04
[2018-12-21] MEDS ORDERED: diphenhydrAMINE 50 MG/ML VIAL IVP ONE (22:30)
[2018-12-21] MEDS ORDERED: IV NORMAL SALINE 1,000ML 1,000 ML IV ONE (22:30)
[2018-12-21] MEDS ORDERED: ONDANSETRON PF 4 MG/2 ML VIAL. IV ONE (22:30)
[2018-12-21] MEDS ORDERED: DEXAMETHASONE SOD PHOS 10 MG/ML VIAL IV ONE (22:30)
[2018-12-21] MEDS ORDERED: KETOROLAC 15 MG/ML VIAL. IV ONE (22:30)
[2018-12-21] MEDS ORDERED: ASPIRIN 325 MG TABLET PO ONE (22:30)
[2018-12-21 22:32] LABS: BASO # 0.1 x10^3/uL (0.0-0.2); BASO % 1 % (0-3); EOS # 0.2 x10^3/uL (0.0-0.7); EOS % 2 % (0-3); HEMATOCRIT 40.9 % (36.0-47.0); HEMOGLOBIN 13.6 g/dL (12.0-15.5); LYMPH # 4.3 x10^3/uL (1.0-4.8); LYMPH % 42 % (24-48); MEAN CORPUSCULAR HEMOGLOBIN 30 pg (25-35); MEAN CORPUSCULAR HGB CONC 33 g/dL (31-37); MEAN CORPUSCULAR VOLUME 91 fL (79-100); MONO # 0.9 x10^3/uL (0.0-1.1); MONO % 9 % (0-9); NEUT # 4.8 x10^3uL (1.8-7.7); NEUT % 47 % (31-73); PLATELET COUNT 351 x10^3/uL (140-400); RED BLOOD COUNT 4.49 x10^6/uL (3.50-5.40); RED CELL DISTRIBUTION WIDTH 16.9 % (11.5-14.5); WHITE BLOOD COUNT 10.3 x10^3/uL (4.0-11.0)
[2018-12-21 22:59] LABS: ALBUMIN 3.6 g/dL (3.4-5.0); ALBUMIN/GLOBULIN RATIO 0.9 (1.0-1.7); GFR 62.4; MAGNESIUM 1.9 mg/dL (1.8-2.4); POTASSIUM 3.7 mmol/L (3.5-5.1); TOTAL BILIRUBIN 0.2 mg/dL (0.2-1.0); TOTAL PROTEIN 7.8 g/dL (6.4-8.2)
[2018-12-21] MEDS ORDERED: IOHEXOL 350 MG/ML 100 ML VIAL. IV ONE (23:00)
--- NOTE | 2018-12-22 00:24 | RAD ---
INDICATION: Omni 350 100cc: PE protocol: Chest pain tonight Hx: PE, cholecystectomy, hysterectomy, Thyroid, brain, and ovarian cancer, colectomy COMPARISON: January 10, 2018 TECHNIQUE: Axial CT images obtained through the chest. Intravenous contrast utilized. Angiogram 3D images processed per protocol. One or more of the following individualized dose reduction techniques were utilized for this examination: 1. Automated exposure control; 2. Adjustment of the mA and/or kV according to patient size; 3. Use of iterative reconstruction technique. FINDINGS: Numerous bilateral pulmonary nodules are again seen. Groundglass opacities of bilateral lungs most severe at lung bases appear slightly increased. Nodular thickening of the left adrenal gland at partially visualized upper abdomen measuring up to 2 cm. There is also nodular thickening of the left adrenal gland. Mediastinal lymphadenopathy. For example precarinal region lymph node measuring up to 12 mm short axis. Thoracic aorta is not aneurysmal. Portion of ascending thoracic aorta obscured by motion. Old right rib fracture with callus formation. There is some skin thickening overlying the right breast. Surgical clips at chest wall. Deformity of the left scapula with hypertrophic changes. Scattered sclerotic foci in some of the right ribs. There is also some sclerotic foci in the spine. No embolus in main, right main or left main pulmonary artery. Peripheral evaluation is limited secondary to motion obscuring the vessels. IMPRESSION: No embolus in main, right main or left main pulmonary artery. There is a large amount of motion which obscures the more peripheral vessels. Repeat demonstration of innumerable pulmonary nodules bilaterally which could be secondary to metastatic disease. There is also some enlarged lymph nodes within the mediastinum. Groundglass opacities bilaterally. Could be from pulmonary edema or small airway inflammation from infectious or inflammatory causes. There are some sclerotic foci in the osseous structures including the ribs and vertebral bodies with the majority of the T10 vertebral body affected.. Some of these could be secondary to bone islands however additional foci of metastatic disease is possible given the other findings. Adrenal nodules at partially visualized upper abdomen. Electronically signed by: Issac Edwards MD (12/22/2018 12:21 AM) [facility]
[2018-12-22 00:40] LABS: BACTERIA,URINE 0 /HPF (0-FEW); BILIRUBIN,URINE NEG (NEG); CLARITY,URINE CLEAR; COLOR,URINE YELLOW; GLUCOSE,URINE NEG (NEG); NITRITE,URINE NEG (NEG); SQUAMOUS EPITHELIAL CELL,UR OCC /LPF; UROBILINOGEN,URINE 0.2 mg/dL (0.2 mg/dL)
[2018-12-22 00:41] LABS: WBC,URINE OCC /HPF (0-4)
[2018-12-22 01:25] VITALS: BP 154/89
--- NOTE | 2018-12-22 11:02 | EKG ---
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
== END 2018-12-22 01:25 | disposition home or self-care (01) ==
LOC: ER 21:43
DX: R07.9 Chest pain, unspecified (principal); R93.1 Abnormal findings on diagnostic imaging of heart and coronary circulation; D68.32 Hemorrhagic disorder due to extrinsic circulating anticoagulants; R51 Headache; M54.6 Pain in thoracic spine; F41.9 Anxiety disorder, unspecified; E11.9 Type 2 diabetes mellitus without complications; I10 Essential (primary) hypertension; E03.9 Hypothyroidism, unspecified; G43.909 Migraine, unspecified, not intractable, without status migrainosus; F17.200 Nicotine dependence, unspecified, uncomplicated; Z86.718 Personal history of other venous thrombosis and embolism; Z86.711 Personal history of pulmonary embolism; Z88.1 Allergy status to other antibiotic agents; Z88.8 Allergy status to other drugs, medicaments and biological substances
CPT/HCPCS: 36415; 71275; 80053; 81001; 82553; 83690; 83735; 83880; 84484; 85025; 85610; 85730; 93005; 96374; 96375; 99284; J1100; J1200; J1885; J2405; Q9967; J7030

== ENCOUNTER 2019-02-28 10:41 | Emergency (ER) | payer MEDICARE, OTHER ==
[~2019-02-28] VITALS: Ht 167.6 cm; Wt 101.6 kg
[~2019-02-28 10:41] MED LIST changes: +RANI-376 PO; -RANI150T21 PO
[2019-02-28 10:57] VITALS: BP 142/98
--- NOTE | 2019-02-28 11:20 | PHYS DOC ---
Past History Past Medical History: Anxiety, Cancer, Diverticulitis, Diabetes, DVT, Gallstones, High Cholesterol, Hypertension, Hypothyroid, Migraines, Other Additional Past Medical Histor: chronic right upper extremity edema, chronic elevated CK, DVT/PE Past Surgical History: Cancer Surgery, Cholecystectomy, Colectomy, Hysterectomy, Oophorectomy, Other Smoking: Less than 1pk/day Alcohol Use: None Drug Use: Marijuana Adult General Chief Complaint Chief Complaint: VAGINAL PROBLEM HPI HPI Patient is a 39-year-old female presents complaining of blood as she wipes after urination 2 this morning. She also noted a bloody nose yesterday. She has been on a recently increased dose of Coumadin since she is approximately 10 days post colonoscopy. She had her INR level drawn this morning at [facility] but does not yet know what that level was. She denies any chest pain or difficulty breathing. She is on Coumadin for previous history of DVT and PE. She denies any dysuria or hematuria. She has had a previous hysterectomy. Symptoms are mild. Nosebleed was controlled with direct pressure yesterday.[] Review of Systems Review of Systems Constitutional: Denies fever or chills [] Eyes: Denies change in visual acuity, redness, or eye pain [] HENT: Denies nasal congestion or sore throat [] Respiratory: Denies cough or shortness of breath [] Cardiovascular: No chest pain or palpitations[] GI: Denies abdominal pain, nausea, vomiting, bloody stools or diarrhea [] : Denies dysuria or hematuria [] Musculoskeletal: Denies back pain or joint pain [] Integument: Denies rash or skin lesions [] Neurologic: Denies headache, focal weakness or sensory changes [] Endocrine: Denies polyuria or polydipsia [] All other systems were reviewed and found to be within normal limits, except as documented in this note. Allergies Allergies Allergies Coded Allergies Type Severity Reaction Last Updated Verified Cephalexin Monohydrate Allergy Intermediate Rash 04/24/17 Yes cefazolin Allergy Intermediate 04/24/17 Yes enoxaparin sodium Allergy Intermediate Rash 04/24/17 Yes ampicillin Allergy Mild Rash 04/24/17 Yes clindamycin Allergy Mild Rash 04/24/17 Yes Physical Exam Physical Exam Constitutional: Well developed, well nourished, no acute distress, non-toxic appearance. [] HENT: Normocephalic, atraumatic, bilateral external ears normal, oropharynx moist, no oral exudates, nose normal. [] Eyes: PERRLA, EOMI, conjunctiva normal, no discharge. [] Neck: Normal range of motion, no tenderness, supple, no stridor. [] Cardiovascular:Heart rate regular rhythm, no murmur [] Lungs & Thorax: Bilateral breath sounds clear to auscultation [] Abdomen: Bowel sounds normal, soft, no tenderness, no masses, no pulsatile masses. Pelvic exam performed with wallpaperer helper: External genitalia normal. Vaginal vault: No blood in the vault, no bleeding from cervical/hysterectomy site[] Skin: Warm, dry, no erythema, no rash. [] Back: No tenderness, no CVA tenderness. [] Extremities: No tenderness, no cyanosis, no clubbing, ROM intact, no edema. [] Neurologic: Alert and oriented X 3, normal motor function, normal sensory function, no focal deficits noted. [] Psychologic: Affect normal, judgement normal, mood normal. [] Current Patient Data Vital Signs Vital Signs Date Time Temp Pulse Resp B/P (MAP) Pulse Ox O2 Delivery O2 Flow Rate FiO2 02/28/19 10:57 98.4 71 22 98 Room Air EKG EKG [] Radiology/Procedures Radiology/Procedures [] Course & Med Decision Making Course & Med Decision Making Pertinent Labs and Imaging studies reviewed. (See chart for details) Medical decision making: There is no evidence of active bleeding. Patient's INR is supratherapeutic for having DVT/PE, it should be between 2 and 3, it is 3.2 today. There is no evidence of thrombocytopenia nor anemia. Will have patient hold her Coumadin today and follow-up with her primary care team either today or tomorrow.[] Dragon Disclaimer Dragon Disclaimer This electronic medical record was generated, in whole or in part, using a voice recognition dictation system. Departure Departure: Impression: Primary Impression: Hematuria Additional Impression: Supratherapeutic INR Disposition: 01 HOME, SELF-CARE Condition: IMPROVED Referrals: LEIGH COLLINS (PCP) Follow-up in 2 days Patient Instructions: Hematuria, Adult Additional Instructions: Your INR was 3.2 today. It should be kept between 2.0 and 3.0 with your history of previous DVT and pulmonary embolism. Do not take your Coumadin this evening. Call your primary care team today to arrange follow-up for long-term management of your INR. Return to the ER if worsening pain, bleeding, or any other concerns. Problem Qualifiers Primary Impression: Hematuria Hematuria type: unspecified type Qualified Codes: R31.9 - Hematuria, unspecified KOBE MARIE DO Feb 28, 2019 11:20
[2019-02-28 11:35] LABS: BASO # 0.1 x10^3/uL (0.0-0.2); BASO % 1 % (0-3); EOS # 0.2 x10^3/uL (0.0-0.7); EOS % 2 % (0-3); HEMATOCRIT 43.3 % (36.0-47.0); HEMOGLOBIN 14.4 g/dL (12.0-15.5); LYMPH # 2.9 x10^3/uL (1.0-4.8); LYMPH % 33 % (24-48); MEAN CORPUSCULAR HEMOGLOBIN 31 pg (25-35); MEAN CORPUSCULAR HGB CONC 33 g/dL (31-37); MEAN CORPUSCULAR VOLUME 93 fL (79-100); MONO # 0.7 x10^3/uL (0.0-1.1); MONO % 8 % (0-9); NEUT % 57 % (31-73); PLATELET COUNT 326 x10^3/uL (140-400); RED BLOOD COUNT 4.66 x10^6/uL (3.50-5.40); RED CELL DISTRIBUTION WIDTH 13.3 % (11.5-14.5); WHITE BLOOD COUNT 8.9 x10^3/uL (4.0-11.0)
[2019-02-28 11:50] LABS: ALBUMIN 3.5 g/dL (3.4-5.0); ALBUMIN/GLOBULIN RATIO 0.8 (1.0-1.7); CALCIUM 9.4 mg/dL (8.5-10.1); CREATININE 0.9 mg/dL (0.6-1.0); GFR 70.1; POTASSIUM 4.2 mmol/L (3.5-5.1); TOTAL BILIRUBIN 0.2 mg/dL (0.2-1.0)
[2019-02-28 12:22] LABS: BACTERIA,URINE 0 /HPF (0-FEW); BILIRUBIN,URINE NEG (NEG); CLARITY,URINE CLEAR; COLOR,URINE YELLOW; GLUCOSE,URINE NEG (NEG); NITRITE,URINE NEG (NEG); SQUAMOUS EPITHELIAL CELL,UR OCC /LPF; UROBILINOGEN,URINE 0.2 mg/dL (0.2 mg/dL); WBC,URINE RARE /HPF (0-4)
== END 2019-02-28 13:00 | disposition home or self-care (01) ==
LOC: ER 10:41
DX: R31.9 Hematuria, unspecified (principal); R04.0 Epistaxis; R79.1 Abnormal coagulation profile; F41.9 Anxiety disorder, unspecified; E11.9 Type 2 diabetes mellitus without complications; E78.00 Pure hypercholesterolemia, unspecified; I10 Essential (primary) hypertension; E03.9 Hypothyroidism, unspecified; G43.909 Migraine, unspecified, not intractable, without status migrainosus; F17.200 Nicotine dependence, unspecified, uncomplicated; Z86.718 Personal history of other venous thrombosis and embolism; Z86.711 Personal history of pulmonary embolism; Z88.1 Allergy status to other antibiotic agents; Z88.8 Allergy status to other drugs, medicaments and biological substances
CPT/HCPCS: 36415; 80053; 81001; 85025; 85610; 85730; 99284

== ENCOUNTER 2019-04-08 12:39 | Emergency (ER) | payer MEDICARE, OTHER ==
[~2019-04-08] VITALS: Ht 167.6 cm; Wt 101.0 kg
[2019-04-08] MEDS ORDERED: valACYclovir 500 MG TABLET. PO STA (13:29)
[2019-04-08] MEDS ORDERED: diphenhydrAMINE 50 MG/ML VIAL IVP ONE (13:30)
[2019-04-08] MEDS ORDERED: METOCLOPRAMIDE HCL 10 MG/2 ML VIAL. IV ONE (13:30)
[2019-04-08] MEDS ORDERED: DOXYCYCLINE HYCLATE 100 MG TABLET PO ONE (13:30)
[2019-04-08] MEDS ORDERED: IV NORMAL SALINE 1,000ML 1,000 ML IV ONE (13:30)
[2019-04-08] MEDS ORDERED: KETOROLAC 30 MG/ML VIAL. IV ONE (13:30)
--- NOTE | 2019-04-08 14:02 | PHYS DOC ---
Past History Past Medical History: Anxiety, Cancer, Diverticulitis, Diabetes, DVT, Gallstones, High Cholesterol, Hypertension, Hypothyroid, Migraines Additional Past Medical Histor: chronic right upper extremity edema, chronic elevated CK, DVT/PE Past Surgical History: Cancer Surgery, Cholecystectomy, Colectomy, Hysterectomy, Oophorectomy, Other Smoking: Less than 1pk/day Additional Smoking Information: 1/2 PACK Alcohol Use: None Drug Use: Marijuana Adult General Chief Complaint Chief Complaint: SKIN RASH/ABSCESS HPI HPI 39-year-old female presents with rash on her left abdomen and around to her back. The patient states it started out as a nickel size erythematous area yesterday and now has spread all around her abdomen and around her back, but not midline. In the front it appears that it crosses the midline and she has an abdominal surgical scar that has discolored skin around it. She is scheduled to have revision of the surgery next week. She describes the rash as painful and a burning sensation. She has never had anything like this. She is unsure if she ever had chickenpox as a kid or if she was vaccinated. She denies fever or chills. She's never had a rash like this before. She has no history of cellulitis or MRSA. Review of Systems Review of Systems Constitutional: Denies fever or chills [] Eyes: Denies change in visual acuity, redness, or eye pain [] HENT: Denies nasal congestion or sore throat [] Respiratory: Denies cough or shortness of breath [] Cardiovascular: No additional information not addressed in HPI [] GI: Denies abdominal pain, nausea, vomiting, bloody stools or diarrhea [] : Denies dysuria or hematuria [] Musculoskeletal: Denies back pain or joint pain [] Integument: Rash[] Neurologic: Headache. Denies focal weakness or sensory changes [] Endocrine: Denies polyuria or polydipsia [] All other systems were reviewed and found to be within normal limits, except as documented in this note. Current Medications Current Medications Current Medications Medications (Trade) Dose Ordered Sig/Pau Start Time Stop Time Status Last Admin Dose Admin Diphenhydramine HCl (Benadryl) 25 mg 1X ONCE 04/08/19 13:30 04/08/19 13:37 DC Doxycycline Hyclate (Vibra-Tab) 100 mg 1X ONCE 04/08/19 13:30 7/26/19 13:37 DC Ketorolac Tromethamine (Toradol 30mg Vial) 30 mg 1X ONCE 04/08/19 13:30 04/08/19 13:38 DC Metoclopramide HCl (Reglan Vial) 10 mg 1X ONCE 04/08/19 13:30 04/08/19 13:38 DC Sodium Chloride 1,000 ml @ 1,000 mls/hr 1X ONCE 04/08/19 13:30 04/08/19 14:29 04/08/19 13:54 1,000 MLS/HR Valacyclovir HCl (Valtrex) 1,000 mg 1X STAT 04/08/19 13:29 04/08/19 13:38 DC Allergies Allergies Allergies Coded Allergies Type Severity Reaction Last Updated Verified Cephalexin Monohydrate Allergy Intermediate Rash 04/24/17 Yes cefazolin Allergy Intermediate 04/24/17 Yes enoxaparin sodium Allergy Intermediate Rash 04/24/17 Yes ampicillin Allergy Mild Rash 04/24/17 Yes clindamycin Allergy Mild Rash 04/24/17 Yes Physical Exam Physical Exam Constitutional: Well developed, well nourished, no acute distress, non-toxic appearance. [] HENT: Normocephalic, atraumatic, bilateral external ears normal, oropharynx moist, no oral exudates, nose normal. [] Eyes: PERRLA, EOMI, conjunctiva normal, no discharge. [] Neck: Normal range of motion, no tenderness, supple, no stridor. [] Cardiovascular:Heart rate regular rhythm, no murmur [] Lungs & Thorax: Bilateral breath sounds clear to auscultation [] Abdomen: Bowel sounds normal, soft, no tenderness, no masses, no pulsatile masses. [] Skin: Erythematous, slightly raised, warm area of rash along the left abdomen and back. It does appear to cross midline in the front, but this is difficult to tell due to skin changes from her surgical scar.[] Back: No tenderness, no CVA tenderness. [] Extremities: No tenderness, no cyanosis, no clubbing, ROM intact, no edema. [] Neurologic: Alert and oriented X 3, normal motor function, normal sensory function, no focal deficits noted. [] Psychologic: Affect normal, judgement normal, mood normal. [] Current Patient Data Vital Signs Vital Signs Date Time Temp Pulse Resp B/P (MAP) Pulse Ox O2 Delivery O2 Flow Rate FiO2 04/08/19 12:45 97.9 98 20 97 Room Air EKG EKG [] Radiology/Procedures Radiology/Procedures [] Course & Med Decision Making Course & Med Decision Making Pertinent Labs and Imaging studies reviewed. (See chart for details) Based on the patient's description, rapid onset, and the fact that it may only be on one side, I will treat this as shingles. It does appear to cross the midline in the anterior abdomen, but the skin changes from her surgical scar make this difficult to ascertain with certainty. I will additionally treat her for cellulitis with doxycycline as the patient has multiple medication allergies. I will also treat her headache with her migraine cocktail of 1 L normal saline, 30 mg Toradol, 25 mg Benadryl, 10 mg Reglan. Patient's headache improved, but she continued to have discomfort from her rash. I gave her 4 mg of morphine. This helped significant only. I will discharge her with Valtrex, doxycycline, and [place] 5/325. The patient is already on gabapentin. I've advised she follow up with her PCP and discuss whether or not she could have surgery this next week. She is stable for discharge at this time. [] Dragon Disclaimer Dragon Disclaimer This electronic medical record was generated, in whole or in part, using a voice recognition dictation system. Departure Departure: Impression: Primary Impression: Herpes zoster Additional Impressions: Cellulitis Migraine headache Disposition: HOME, SELF-CARE Condition: STABLE Referrals: LEIGH COLLINS (PCP) Patient Instructions: Shingles, [id number] Scripts Hydrocodone Bit/Acetaminophen (NORCO 5-325 TABLET) 1 Each Tablet 1 TAB PO PRN Q6HRS PRN for PAIN, #20 TAB 0 Refills Prov: EDGARD PADRON DO 04/08/19 Doxycycline Hyclate (DOXYCYCLINE HYCLATE) 100 Mg Capsule 1 CAP PO BID for cellulitis, #14 CAP Prov: EDGARD PADRON DO 04/08/19 Valacyclovir Hcl (VALTREX) 1,000 Mg Tablet 1 TAB PO TID for shingles, #21 TAB Prov: EDGARD PADRON DO 04/08/19 Problem Qualifiers Primary Impression: Herpes zoster Herpes zoster complications: unspecified herpes zoster complication Qualified Codes: B02.8 - Zoster with other complications Additional Impressions: Cellulitis Site of cellulitis: trunk Site of cellulitis of trunk: abdominal wall Qualified Codes: L03.311 - Cellulitis of abdominal wall Migraine headache Migraine type: without aura Status migrainosus presence: without status migrainosus Intractability: intractable Qualified Codes: G43.019 - Migraine without aura, intractable, without status migrainosus EDGARD PADRON DO Apr 08, 2019 14:02
[2019-04-08 14:13] LABS: BASO # 0.2 x10^3/uL (0.0-0.2); BASO % 1 % (0-3); EOS # 0.2 x10^3/uL (0.0-0.7); EOS % 2 % (0-3); HEMATOCRIT 41.5 % (36.0-47.0); HEMOGLOBIN 13.9 g/dL (12.0-15.5); LYMPH # 3.6 x10^3/uL (1.0-4.8); LYMPH % 28 % (24-48); MEAN CORPUSCULAR HEMOGLOBIN 31 pg (25-35); MEAN CORPUSCULAR HGB CONC 34 g/dL (31-37); MEAN CORPUSCULAR VOLUME 92 fL (79-100); MONO % 8 % (0-9); NEUT # 7.8 x10^3uL (1.8-7.7); NEUT % 61 % (31-73); PLATELET COUNT 348 x10^3/uL (140-400); RED CELL DISTRIBUTION WIDTH 13.4 % (11.5-14.5); WHITE BLOOD COUNT 12.8 x10^3/uL (4.0-11.0)
[2019-04-08 14:18] LABS: ALBUMIN 3.3 g/dL (3.4-5.0); ALBUMIN/GLOBULIN RATIO 0.7 (1.0-1.7); CALCIUM 9.2 mg/dL (8.5-10.1); CREATININE 0.9 mg/dL (0.6-1.0); GFR 70.1; POTASSIUM 3.4 mmol/L (3.5-5.1); TOTAL BILIRUBIN 0.2 mg/dL (0.2-1.0); TOTAL PROTEIN 7.9 g/dL (6.4-8.2)
[2019-04-08] MEDS ORDERED: VALA10005 PO (15:16)
[2019-04-08] MEDS ORDERED: DOXY100C2 PO (15:16)
[2019-04-08] MEDS ORDERED: GABAPENTIN 100 MG CAPSULE. PO ONE (15:30)
[2019-04-08] MEDS ORDERED: MORPHINE SULFATE 4 MG/ML DISP.SYRIN. IV ONE (15:30)
[2019-04-08] MEDS ORDERED: HYDR-3165 PO (15:53)
[2019-04-08] MEDS ORDERED: GABA-586 PO (15:53)
[2019-04-08 16:02] VITALS: BP 129/83
== END 2019-04-08 16:13 | disposition home or self-care (01) ==
LOC: ER 12:39
DX: B02.8 Zoster with other complications (principal); L03.311 Cellulitis of abdominal wall; G43.019 Migraine without aura, intractable, without status migrainosus; E11.9 Type 2 diabetes mellitus without complications; E78.00 Pure hypercholesterolemia, unspecified; I10 Essential (primary) hypertension; E03.9 Hypothyroidism, unspecified; G43.909 Migraine, unspecified, not intractable, without status migrainosus; F17.200 Nicotine dependence, unspecified, uncomplicated; Z86.718 Personal history of other venous thrombosis and embolism; Z88.1 Allergy status to other antibiotic agents; Z88.8 Allergy status to other drugs, medicaments and biological substances
CPT/HCPCS: 36415; 80053; 85025; 96374; 96375; 99285; J1200; J1885; J2270; J2765; J7030

== ENCOUNTER 2019-11-07 17:00 | Emergency (ER) | payer MEDICARE, OTHER ==
[~2019-11-07] VITALS: Ht 167.6 cm; Wt 103.2 kg
[~2019-11-07 17:00] MED LIST changes: -CETI10TA22 PO; +CETI10TA24 PO; +DOXY100C2 PO; -EZET10TA18 PO; +EZET10TA20 PO; +GABA-586 PO; +HYDR-3165 PO; +LISI1TAB23 PO; -LISI1TAB3 PO; -TIZA4TAB PO; +TIZA4TAB2 PO; +TRAZ-125 PO; -TRAZ-86 PO; +VALA10005 PO
[2019-11-07 17:20] VITALS: BP 154/104
[2019-11-07] MEDS ORDERED: IV NORMAL SALINE 1,000ML 1,000 ML IV SCH (17:43)
[2019-11-07] MEDS ORDERED: diphenhydrAMINE 50 MG/ML VIAL IVP ONE (17:45)
[2019-11-07] MEDS ORDERED: METOCLOPRAMIDE HCL 10 MG/2 ML VIAL. IVP ONE (17:45)
[2019-11-07] MEDS ORDERED: DEXAMETHASONE SOD PHOS 10 MG/ML VIAL IV ONE (17:45)
--- NOTE | 2019-11-07 17:52 | PHYS DOC ---
Past History Past Medical History: Anxiety, Cancer, Diverticulitis, Diabetes, DVT, Gallstones, High Cholesterol, Hypertension, Hypothyroid, Migraines Additional Past Medical Histor: chronic right upper extremity edema, chronic elevated CK, DVT/PE (FREDERIC ANGUIANO Jr. DO) Past Surgical History: Cancer Surgery, Cholecystectomy, Colectomy, Hysterectomy, Oophorectomy, Other (FREDERIC ANGUIANO Jr. DO) Smoking: Less than 1pk/day Alcohol Use: None Drug Use: Marijuana (FREDERIC ANGUIANO Jr. DO) Adult General Chief Complaint Chief Complaint: HEADACHE HPI HPI Patient is a 39-year-old female who presents with complaint of 3 week history of migraine headache. Patient has long history of migraines and has had history of brain surgery for brain tumor. Patient rates her pain to be a 9 out of 10. She states that she has been taking all of her medications to include 2 doses of Maxalt in the last 24 hours. She states that nothing is really giving her any relief. Patient is scheduled for an MRI of the brain on November 13. Patient states that she does have some photophobia and has had nausea and vomiting as well. She describes pain as dull and throbbing and states the pain is in her frontal region bilaterally as well as behind the eyes. She states that she has had headaches like this before, lasting just as long.[] (FREDERIC ANGUIANO Jr. DO) Review of Systems Review of Systems Constitutional: Denies fever or chills [] Eyes: Denies change in visual acuity, redness, or eye pain [] Respiratory: Denies cough or shortness of breath [] Cardiovascular: No additional information not addressed in HPI [] GI: Denies abdominal pain.complains of nausea and vomiting without diarrhea [] Integument: Denies rash or skin lesions [] Neurologic: Complains of headache without focal weakness or sensory changes [] All other systems were reviewed and found to be within normal limits, except as documented in this note. (FREDERIC ANGUIANO Jr. DO) Allergies Allergies Allergies Coded Allergies Type Severity Reaction Last Updated Verified Cephalexin Monohydrate Allergy Intermediate Rash 04/24/17 Yes cefazolin Allergy Intermediate 04/24/17 Yes enoxaparin sodium Allergy Intermediate Rash 04/24/17 Yes ampicillin Allergy Mild Rash 04/24/17 Yes clindamycin Allergy Mild Rash 04/24/17 Yes (FREDERIC ANGUIANO Jr., DO) Physical Exam Physical Exam Constitutional: Well developed, well nourished, in mild distress, non-toxic appearance. [] HENT: Normocephalic, atraumatic, bilateral external ears normal, oropharynx moist, no oral exudates, nose normal. [] Eyes: PERRLA, EOMI, conjunctiva normal, no discharge. [] Neck: Normal range of motion, no tenderness, supple, no stridor. [] Cardiovascular: Regular rate and rhythm[] Lungs & Thorax: Bilateral breath sounds clear to auscultation [] Abdomen: Bowel sounds normal, soft, no tenderness. [] Skin: Warm, dry, no erythema, no rash. [] Extremities: No tenderness, no cyanosis, no clubbing, ROM intact. [] Neurologic: Alert and oriented X 3, no focal deficits noted. [] (FREDERIC ANGUIANO Jr., DO) Current Patient Data Vital Signs Vital Signs Date Time Temp Pulse Resp B/P (MAP) Pulse Ox O2 Delivery O2 Flow Rate FiO2 11/07/19 17:20 85 18 154/104 (121) 98 (FREDERIC ANGUIANO Jr., DO) EKG EKG [] (FREDERIC ANGUIANO Jr., DO) Radiology/Procedures Radiology/Procedures [] (FREDERIC ANGUIANO Jr., DO) Course & Med Decision Making Course & Med Decision Making Pertinent Labs and Imaging studies reviewed. (See chart for details) Patient moved to room upon arrival was evaluated by your medical staff after which an IV was established and blood work drawn. Patient given migraine cocktail. At this time, patient's workup is pending and patient is being signed out to the [facility] ER physician at 6:00 PM. (FREDERIC ANGUIANO Jr., DO) Course & Med Decision Making The patient's labs are unremarkable. Her urinalysis is negative for infection. The migraine cocktail did decrease the patient's pain though it is not gone. Hopefully will continue to decrease with some additional rest. The patient is stable for discharge at this time. (EDGARD PADRON DO) Dragon Disclaimer Dragon Disclaimer This electronic medical record was generated, in whole or in part, using a voice recognition dictation system. (FREDERIC ANGUIANO Jr., DO) Departure Departure: Impression: Primary Impression: Migraine headache Disposition: HOME, SELF-CARE Condition: STABLE Referrals: DLUGOPOLSKI,LEIGH (PCP) Patient Instructions: Migraine Headache, [id number] Problem Qualifiers Primary Impression: Migraine headache Migraine type: without aura Status migrainosus presence: without status m igrainosus Intractability: intractable Qualified Codes: G43.019 - Migraine without aura, intractable, without status migrainosus FREDERIC ANGUIANO Jr. DO Nov 07, 2019 17:52 EDGARD PADRON DO Nov 07, 2019 21:32
[2019-11-07 19:21] LABS: BASO # 0.1 x10^3/uL (0.0-0.2); BASO % 1 % (0-3); EOS # 0.2 x10^3/uL (0.0-0.7); EOS % 3 % (0-3); HEMATOCRIT 39.9 % (36.0-47.0); HEMOGLOBIN 13.2 g/dL (12.0-15.5); LYMPH % 46 % (24-48); MEAN CORPUSCULAR HEMOGLOBIN 30 pg (25-35); MEAN CORPUSCULAR HGB CONC 33 g/dL (31-37); MEAN CORPUSCULAR VOLUME 90 fL (79-100); MONO # 0.9 x10^3/uL (0.0-1.1); MONO % 10 % (0-9); NEUT # 3.5 x10^3uL (1.8-7.7); NEUT % 40 % (31-73); PLATELET COUNT 311 x10^3/uL (140-400); RED BLOOD COUNT 4.42 x10^6/uL (3.50-5.40); RED CELL DISTRIBUTION WIDTH 14.5 % (11.5-14.5); WHITE BLOOD COUNT 8.6 x10^3/uL (4.0-11.0)
[2019-11-07 19:22] LABS: CALCIUM 8.7 mg/dL (8.5-10.1); CREATININE 0.9 mg/dL (0.6-1.0); GFR 70.1
[2019-11-07 21:26] LABS: BACTERIA,URINE 0 /HPF (0-FEW); BILIRUBIN,URINE NEG (NEG); CLARITY,URINE CLEAR; COLOR,URINE YELLOW; GLUCOSE,URINE NEG (NEG); NITRITE,URINE NEG (NEG); RBC,URINE 0 /HPF (0-2); SQUAMOUS EPITHELIAL CELL,UR OCC /LPF; UROBILINOGEN,URINE 0.2 mg/dL (0.2 mg/dL); WBC,URINE 0 /HPF (0-4)
== END 2019-11-07 21:40 | disposition home or self-care (01) ==
LOC: ER 17:00
DX: G43.019 Migraine without aura, intractable, without status migrainosus (principal); R11.2 Nausea with vomiting, unspecified; E11.9 Type 2 diabetes mellitus without complications; E78.00 Pure hypercholesterolemia, unspecified; I10 Essential (primary) hypertension; E03.9 Hypothyroidism, unspecified; F17.200 Nicotine dependence, unspecified, uncomplicated; Z86.718 Personal history of other venous thrombosis and embolism; Z88.1 Allergy status to other antibiotic agents
CPT/HCPCS: 36415; 80048; 81001; 85025; 85610; 96361; 96374; 96375; 99284; J1100; J1200; J2765; J3010; J7030

== ENCOUNTER 2020-07-15 12:33 | Emergency (ER) | payer MEDICARE, OTHER ==
[~2020-07-15] VITALS: Ht 168.9 cm; Wt 105.0 kg
[~2020-07-15 12:33] MED LIST changes: -CETI10TA24 PO; +CETI10TA74 PO; +WARF1TAB2 PO; -WARF1TAB74 PO
[2020-07-15] MEDS ORDERED: AMOX1TAB61 PO (13:29)
--- NOTE | 2020-07-15 13:29 | PHYS DOC ---
Past History Past Medical History: Anxiety, Bipolar, Cancer, Diverticulitis, Diabetes, DVT, Gallstones, High Cholesterol, Hypertension, Hypothyroid, Migraines Additional Past Medical Histor: RUE lymphedema; chronic elevated CK; PE; PTEN genetic mutation Past Surgical History: Cancer Surgery, Cholecystectomy, Colectomy, Hysterectomy, Oophorectomy, Other Additional Past Surgical Histo: brain tumor; thyroidectomy; breast reconstruction; flap graft Smoking: Less than 1pk/day Alcohol Use: None Drug Use: Marijuana General Adult EDM: Chief Complaint: DENTAL PROBLEM HPI: HPI: 40-year-old female presents with left lower dental pain. She has had swelling and pain for the last 3 days. She is worried about a dental infection. She has a known fractured tooth in this area. She denies fever chills. She has an appointment to see her dentist on Thursday. Review of Systems: Review of Systems: Constitutional: Denies fever or chills Eyes: Denies change in visual acuity HENT: Dental pain Respiratory: Denies cough or shortness of breath Cardiovascular: Denies chest pain or edema GI: Denies abdominal pain, nausea, vomiting, bloody stools or diarrhea : Denies dysuria Musculoskeletal: Denies back pain or joint pain Integument: Denies rash Neurologic: Denies headache, focal weakness or sensory changes Endocrine: Denies polyuria or polydipsia Lymphatic: Denies swollen glands Psychiatric: Denies depression or anxiety Allergies: Allergies: Allergies Coded Allergies Type Severity Reaction Last Updated Verified Cephalexin Monohydrate Allergy Intermediate Rash 04/24/17 Yes cefazolin Allergy Intermediate 04/24/17 Yes enoxaparin sodium Allergy Intermediate Rash 04/24/17 Yes ampicillin Allergy Mild Rash 04/24/17 Yes clindamycin Allergy Mild Rash 04/24/17 Yes Physical Exam: PE: Constitutional: Well developed, well nourished, no acute distress, non-toxic appearance. [] HENT: Normocephalic, atraumatic, bilateral external ears normal, fractured molar and left lower side with spontaneously draining abscess, nose normal. [] Eyes: PERRLA, EOMI, conjunctiva normal, no discharge. [] Neck: Normal range of motion, no tenderness, supple, no stridor. [] Cardiovascular: Heart rate regular rhythm, no murmur [] Lungs & Thorax: Bilateral breath sounds clear to auscultation [] Abdomen: Bowel sounds normal, soft, no tenderness, no masses, no pulsatile mass es. [] Skin: Warm, dry, no erythema, no rash. [] Back: No tenderness, no CVA tenderness. [] Extremities: No tenderness, no cyanosis, no clubbing, ROM intact, no edema. [] Neurologic: Alert and oriented X 3, normal motor function, normal sensory function, no focal deficits noted. [] Psychologic: Affect normal, judgement normal, mood normal. [] Current Patient Data: Vital Signs: Vital Signs Date Time Temp Pulse Resp B/P (MAP) Pulse Ox O2 Delivery O2 Flow Rate FiO2 07/15/20 12:35 98.8 99 18 119/80 (93) 97 Room Air EKG: EKG: [] Radiology/Procedures: Radiology/Procedures: [] Heart Score: Risk Factors: Risk Factors: DM, Current or recent (<one month) smoker, HTN, HLP, family history of CAD, obesity. Risk Scores: Score 0 - 3: 2.5% MACE over next 6 weeks - Discharge Home Score 4 - 6: 20.3% MACE over next 6 weeks - Admit for Clinical Observation Score 7 - 10: 72.7% MACE over next 6 weeks - Early Invasive Strategies Course & Med Decision Making: Course & Med Decision Making Pertinent Labs and Imaging studies reviewed. (See chart for details) During my evaluation, the patient's abscess seem to spontaneously rupture as she had blood and pus pool in her mouth. The pain started to decrease. I will place her on Augmentin since she is allergic to clindamycin. I will also discharge her with a few Walnut for pain control. She is stable for discharge at this time. [] Dragon Disclaimer: Dragon Disclaimer: This electronic medical record was generated, in whole or in part, using a voice recognition dictation system. Departure Departure: Impression: Primary Impression: Dental abscess Disposition: 01 DC HOME SELF CARE/HOMELESS Condition: STABLE Referrals: LEIGH COLLINS (PCP) Patient Instructions: Dental Abscess Scripts Amoxicillin/Potassium Clav (AUGMENTIN 875-125 TABLET) 1 Each Tablet 1 TAB PO BID for dental infection for 7 Days, #14 TAB 0 Refills Prov: EDGARD PADRON DO 07/15/20 EDGARD PADRON DO Jul 15, 2020 13:29
[2020-07-15 13:40] VITALS: BP 135/89
== END 2020-07-15 13:40 | disposition home or self-care (01) ==
LOC: ER 12:33
DX: K04.7 Periapical abscess without sinus (principal); F41.9 Anxiety disorder, unspecified; F31.9 Bipolar disorder, unspecified; E11.9 Type 2 diabetes mellitus without complications; E78.00 Pure hypercholesterolemia, unspecified; I10 Essential (primary) hypertension; E03.9 Hypothyroidism, unspecified; G43.909 Migraine, unspecified, not intractable, without status migrainosus; F17.200 Nicotine dependence, unspecified, uncomplicated; Z86.718 Personal history of other venous thrombosis and embolism; Z88.1 Allergy status to other antibiotic agents
CPT/HCPCS: 99283

== ENCOUNTER 2020-08-19 18:06 | Emergency (ER) | payer MEDICARE, OTHER ==
[~2020-08-19] VITALS: Ht 168.9 cm; Wt 105.0 kg
[~2020-08-19 18:06] MED LIST changes: +AMOX1TAB61 PO
[2020-08-19 19:12] LABS: BASO # 0.1 x10^3/uL (0.0-0.2); BASO % 1 % (0-3); EOS # 0.2 x10^3/uL (0.0-0.7); EOS % 2 % (0-3); HEMATOCRIT 41.1 % (36.0-47.0); HEMOGLOBIN 13.4 g/dL (12.0-15.5); LYMPH # 3.4 x10^3/uL (1.0-4.8); LYMPH % 46 % (24-48); MEAN CORPUSCULAR HEMOGLOBIN 29 pg (25-35); MEAN CORPUSCULAR HGB CONC 33 g/dL (31-37); MEAN CORPUSCULAR VOLUME 90 fL (79-100); MONO # 0.8 x10^3/uL (0.0-1.1); MONO % 11 % (0-9); NEUT # 3.1 x10^3uL (1.8-7.7); NEUT % 41 % (31-73); PLATELET COUNT 321 x10^3/uL (140-400); RED BLOOD COUNT 4.58 x10^6/uL (3.50-5.40); WHITE BLOOD COUNT 7.5 x10^3/uL (4.0-11.0)
[2020-08-19 19:15] LABS: CALCIUM 9.3 mg/dL (8.5-10.1); CREATININE 1.1 mg/dL (0.6-1.0); GFR 55.3; POTASSIUM 4.4 mmol/L (3.5-5.1)
[2020-08-19 19:21] LABS: ALBUMIN 3.5 g/dL (3.4-5.0); ALBUMIN/GLOBULIN RATIO 0.9 (1.0-1.7); TOTAL BILIRUBIN 0.2 mg/dL (0.2-1.0); TOTAL PROTEIN 7.6 g/dL (6.4-8.2)
--- NOTE | 2020-08-19 20:21 | RAD ---
PQRS Compliance Statement: One or more of the following individualized dose reduction techniques were utilized for this examination: 1. Automated exposure control 2. Adjustment of the mA and/or kV according to patient size 3. Use of iterative reconstruction technique CT HEAD WITHOUT CONTRAST History: Facial droop, side unspecified, SYMPTOMS BEGAN 5 DAYS AGO Comparison: CT head without contrast, September 28, 2016. Procedure: Axial images are obtained of the head from the skull base through the vertex without IV contrast. Findings: There is a small area of encephalomalacia in the midline right frontal lobe that could be due to old infarct. Finding is new from prior study. The ventricles and sulci are normal for the patient's age. No mass-effect, midline shift, hemorrhage, extra-axial fluid collection, or obvious acute infarction is identified. Basilar cisterns are patent. Bone windows demonstrate no acute calvarial abnormality. There are old bilateral frontal and left temporal craniotomies. The visualized paranasal sinuses are clear. Mastoid air cells are well aerated. IMPRESSION: 1. No acute intracranial abnormality. 2. 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 FOR INTERNAL CODING PURPOSES Critical result: Findings discussed with Dr. Stark in the ED at 08/19/2020 8:15 PM. RESULT CODE: (C) 1. Electronically signed by: Smith Rodriguez MD (08/19/2020 8:17 PM) [facility]
--- NOTE | 2020-08-19 20:24 | RAD ---
CHEST PA LATERAL History: Reason: CODE STROKE, SYMPTOMS BEGAN 5 DAYS AGO. / Spl. Instructions: / History: Comparison: AP chest April 05, 2018. CT chest with contrast, December 21, 2018. Findings: The cardiomediastinal silhouette is normal. Pulmonary vasculature is normal. Question whether there are scattered small right lung pulmonary nodules, similar to prior CT. There is no lung consolidation. No pleural effusion or pneumothorax is seen. There is no acute bone abnormality. There are bilateral surgical clips of the breasts are chest wall. IMPRESSION: No acute cardiopulmonary process. Electronically signed by: Smith Rodriguez MD (08/19/2020 8:21 PM) [facility]
--- NOTE | 2020-08-19 20:38 | PHYS DOC ---
Past History Past Medical History: Anxiety, Bipolar, Cancer, Diverticulitis, Diabetes, DVT, Gallstones, High Cholesterol, Hypertension, Hypothyroid, Migraines Additional Past Medical Histor: RUE lymphedema; chronic elevated CK; PE; PTEN genetic mutation Past Surgical History: Cancer Surgery, Cholecystectomy, Colectomy, Hysterectomy, Oophorectomy, Other Additional Past Surgical Histo: brain tumor; thyroidectomy; breast reconstruction; flap graft Smoking: Less than 1pk/day Alcohol Use: None Drug Use: Marijuana Adult General Chief Complaint Chief Complaint: FACE PROBLEM HPI HPI Patient is a 40-year-old female presents to the emergency department stating her daughter told her her face looked swollen. Patient states she slept all day and most all day Thursday woke up in the late afternoon on Thursday feeling very confused, patient states that she started feeling better and then Thursday and Thursday she had this headache that hurt all over that was relieved when taking her Imitrex medication. Patient states that her family noticed her sometime in the next morning with facial swelling. Patient states that her family really has not seen her since she went to sleep on Thursday. Patient states currently she feels okay has no headache has no aches or pains andrews s no neurological changes denies any headaches. Patient states that no one else living in her home is having the same symptoms. Review of Systems Review of Systems 14 body systems of review of systems have been reviewed. See HPI for pertinent positives and negative responses, otherwise all other systems are negative, nonpertinent or noncontributory. Current Medications Current Medications See nursing documentation for current medication list. Allergies Allergies Allergies Coded Allergies Type Severity Reaction Last Updated Verified Cephalexin Monohydrate Allergy Intermediate Rash 07/15/20 Yes enoxaparin sodium Allergy Intermediate Rash 07/15/20 Yes clindamycin Allergy Mild Rash 07/15/20 Yes Physical Exam Physical Exam Constitutional: Well developed, well nourished, no acute distress, non-toxic appearance. HENT: Normocephalic, atraumatic, bilateral external ears normal, oropharynx moist, no oral exudates, nose normal. Eyes: PERRLA, EOMI, conjunctiva normal, no discharge. Neck: Normal range of motion, no tenderness, supple, no stridor. Cardiovascular:Heart rate regular rhythm, no murmur Lungs & Thorax: Bilateral breath sounds clear to auscultation Abdomen: Bowel sounds normal, soft, no tenderness, no masses, no pulsatile masses. Skin: Warm, dry, no erythema, no rash. Back: No tenderness, no CVA tenderness. Extremities: No tenderness, no cyanosis, no clubbing, ROM intact, no edema. Neurologic: Alert and oriented X 3, normal motor function, normal sensory function, no focal deficits noted. At rest patient's face has a slight droop on the right side, patient is missing the right sided nasofacial fold, her right upper brow is slightly drooped, right upper eyelid just below brow is slightly drooped, patient can smile, squeeze her eyes tightly shut, raise both eyebrows however her right eyebrow does not raise as high as the left, patient can wrinkle her forehead. Patient can stick tongue out and hold left and right, patient is adamant she has not lost any sensation of taste or sensation of smell.no hyperacusis noted. See NIHSS scale, code stroke initiated. Psychologic: Affect normal, judgement normal, mood normal. Current Patient Data Vital Signs Vital Signs Date Time Temp Pulse Resp B/P (MAP) Pulse Ox O2 Delivery O2 Flow Rate FiO2 08/19/20 18:20 76 18 121/68 (85) 93 Lab Results Laboratory Tests Test 08/19/20 18:56 White Blood Count 7.5 x10^3/uL Red Blood Count 4.58 x10^6/uL Hemoglobin 13.4 g/dL Hematocrit 41.1 % Mean Corpuscular Volume 90 fL Mean Corpuscular Hemoglobin 29 pg Mean Corpuscular Hemoglobin Concent 33 g/dL Red Cell Distribution Width 15.0 % Platelet Count 321 x10^3/uL Neutrophils (%) (Auto) 41 % Lymphocytes (%) (Auto) 46 % Monocytes (%) (Auto) 11 % Eosinophils (%) (Auto) 2 % Basophils (%) (Auto) 1 % Neutrophils # (Auto) 3.1 x10^3uL Lymphocytes # (Auto) 3.4 x10^3/uL Monocytes # (Auto) 0.8 x10^3/uL Eosinophils # (Auto) 0.2 x10^3/uL Basophils # (Auto) 0.1 x10^3/uL Prothrombin Time 19.2 SEC Prothromb Time International Ratio 1.9 Activated Partial Thromboplast Time 30 SEC Sodium Level 141 mmol/L Potassium Level 4.4 mmol/L Chloride Level 107 mmol/L Carbon Dioxide Level 27 mmol/L Anion Gap 7 Blood Urea Nitrogen 12 mg/dL Creatinine 1.1 mg/dL Estimated GFR (Cockcroft-Gault) 55.3 BUN/Creatinine Ratio 11 Glucose Level 105 mg/dL Calcium Level 9.3 mg/dL Total Bilirubin 0.2 mg/dL Aspartate Amino Transf (AST/SGOT) 11 U/L Alanine Aminotransferase (ALT/SGPT) 30 U/L Alkaline Phosphatase 107 U/L Troponin I Quantitative < 0.017 ng/mL Total Protein 7.6 g/dL Albumin 3.5 g/dL Albumin/Globulin Ratio 0.9 Laboratory Tests Test 08/19/20 18:56 White Blood Count 7.5 x10^3/uL (4.0-11.0) Red Blood Count 4.58 x10^6/uL (3.50-5.40) Hemoglobin 13.4 g/dL (12.0-15.5) Hematocrit 41.1 % (36.0-47.0) Mean Corpuscular Volume 90 fL (79-100) Mean Corpuscular Hemoglobin 29 pg (25-35) Mean Corpuscular Hemoglobin Concent 33 g/dL (31-37) Red Cell Distribution Width 15.0 % (11.5-14.5) H Platelet Count 321 x10^3/uL (140-400) Neutrophils (%) (Auto) 41 % (31-73) Lymphocytes (%) (Auto) 46 % (24-48) Monocytes (%) (Auto) 11 % (0-9) H Eosinophils (%) (Auto) 2 % (0-3) Basophils (%) (Auto) 1 % (0-3) Neutrophils # (Auto) 3.1 x10^3uL (1.8-7.7) Lymphocytes # (Auto) 3.4 x10^3/uL (1.0-4.8) Monocytes # (Auto) 0.8 x10^3/uL (0.0-1.1) Eosinophils # (Auto) 0.2 x10^3/uL (0.0-0.7) Basophils # (Auto) 0.1 x10^3/uL (0.0-0.2) Prothrombin Time 19.2 SEC (9.4-11.4) H Prothrombin Time INR 1.9 (0.9-1.1) H Activated Partial Thromboplast Time 30 SEC (23-33) Sodium Level 141 mmol/L (136-145) Potassium Level 4.4 mmol/L (3.5-5.1) Chloride Level 107 mmol/L (98-107) Carbon Dioxide Level 27 mmol/L (21-32) Anion Gap 7 (6-14) Blood Urea Nitrogen 12 mg/dL (7-20) Creatinine 1.1 mg/dL (0.6-1.0) H Estimated GFR (Cockcroft-Gault) 55.3 BUN/Creatinine Ratio 11 (6-20) Glucose Level 105 mg/dL (70-99) H Calcium Level 9.3 mg/dL (8.5-10.1) Total Bilirubin 0.2 mg/dL (0.2-1.0) Aspartate Amino Transferase (AST) 11 U/L (15-37) L Alanine Aminotransferase (ALT) 30 U/L (14-59) Alkaline Phosphatase 107 U/L (46-116) Troponin I Quantitative < 0.017 ng/mL (0-0.055) Total Protein 7.6 g/dL (6.4-8.2) Albumin 3.5 g/dL (3.4-5.0) Albumin/Globulin Ratio 0.9 (1.0-1.7) L EKG EKG EKG performed at 1849 by nisula respiratory therapy, heart rate 74 bpm normal sinus rhythm without ectopy, no ACS, no ischemia, no STEMI noted, MO interval 0.136, QTc interval 0.431, EKG interpreted by ED attending Dr. Davila Radiology/Procedures Radiology/Procedures One or more of the following individualized dose reduction techniques were utilized for this examination: 1. Automated exposure control 2. Adjustment of the mA and/or kV according to patient size 3. Use of iterative reconstruction technique CT HEAD WITHOUT CONTRAST History: Facial droop, side unspecified, SYMPTOMS BEGAN 5 DAYS AGO Comparison: CT head without contrast, September 28, 2016. Procedure: Axial images are obtained of the head from the skull base through the vertex without IV contrast. Findings: There is a small area of encephalomalacia in the midline right frontal lobe that could be due to old infarct. Finding is new from prior study. The ventricles and sulci are normal for the patient's age. No mass-effect, midline shift, hemorrhage, extra-axial fluid collection, or obvious acute infarction is identified. Basilar cisterns are patent. Bone windows demonstrate no acute calvarial abnormality. There are old bilateral frontal and left temporal craniotomies. The visualized paranasal sinuses are clear. Mastoid air cells are well aerated. IMPRESSION: 1. No acute intracranial abnormality. 2. 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 FOR INTERNAL CODING PURPOSES Critical result: Findings discussed with Dr. Stark in the ED at 08/19/2020 8:15 PM. RESULT CODE: (C) 1. Electronically signed by: Smith Rodriguez MD (08/19/2020 8:17 PM) [facility] DICTATED AND SIGNED BY: SMITH RODRIGUEZ MD DATE: 08/19/202016 CC: TOO BLACKMON APRN; [facility] ~[facility] 0 STATUS: REG ER ORD. PHYSICIAN: TOO BLACKMON APRN REASON: CODE STROKE, SYMPTOMS BEGAN 5 DAYS AGO. PROCEDURE: CHEST PA & LATERAL CHEST PA LATERAL History: Reason: CODE STROKE, SYMPTOMS BEGAN 5 DAYS AGO. / Spl. Instructions: / History: Comparison: AP chest April 05, 2018. CT chest with contrast, December 21, 2018. Findings: The cardiomediastinal silhouette is normal. Pulmonary vasculature is normal. Question whether there are scattered small right lung pulmonary nodules, similar to prior CT. There is no lung consolidation. No pleural effusion or pneumothorax is seen. There is no acute bone abnormality. There are bilateral surgical clips of the breasts are chest wall. IMPRESSION: No acute cardiopulmonary process. Electronically signed by: Smith Rodriguez MD (08/19/2020 8:21 PM) [facility] DICTATED AND SIGNED BY: SMITH RODRIGUEZ MD DATE: 08/19/202020 CC: TOO BLACKMON APRN; [facility] ~[facility] 0 Heart Score Risk Factors: Risk Factors: DM, Current or recent (<one month) smoker, HTN, HLP, family history of CAD, obesity. Risk Scores: Risk Factors: DM, Current or recent (<one month) smoker, HTN, HLP, family history of CAD, obesity. Course & Med Decision Making Course & Med Decision Making Pertinent Labs and Imaging studies reviewed. (See chart for details) 40-year-old female, presents to emergency department with vague complaints, physical exam was concerning for an acute stroke, patient's last seen normal was 5 days ago. Lab work, EKG, CAT scan was started in ED. CAT scan and ED exam concerning for atypical stroke, consulted with Dr. Castorena who recommended hospital admission under medicine with him as consult. Discussed with pt admission recommendation, pt refused hospital admission, discussed risks vs benefits of admission vs leaving AGAINST MEDICAL ADVISE, pt is alert and oriented x 3, is of sound mind and able to make her own educated medical decisions, pt adamantly refused admission to the hospital, discussed with Dr Castorena pt leaving AMA, Dr Castorena requested pt receive his office number and address and her her to call his office in the morning for appointment to see him in his office tomorrow. Patient given Dr. Castorena's office number and address, patient states she will call Dr. Castorena's office in the morning make an appointment and see him tomorrow. Patient left this emergency department AGAINST MEDICAL ADVICE. Dragon Disclaimer Dragon Disclaimer This electronic medical record was generated, in whole or in part, using a voice recognition dictation system. Departure Departure: Impression: Primary Impression: Stroke Additional Impressions: Facial asymmetry Left against medical advice Disposition: 01 DC HOME SELF CARE/HOMELESS Condition: STABLE Referrals: [facility] (PCP) Patient Instructions: Discharge Against Medical Advice, Ischemic Stroke Additional Instructions: I believe you have had a stroke, I have recommended admission to the hospital, you have expressed concerns to go home and see the the neurologist Dr. Castorena in his office tomorrow. You are leaving AGAINST MEDICAL ADVICE, please return to the emergency department for worsening symptoms or further concerns, please contact Dr. Castorena's office first thing in the morning at [phone]. Office address is [address] [place] [address] [address] [place], [address]. Patient does not wish to proceed with medical care recommended by Dr. Castorena. Patient given information related to possible complications, up to and including , which could occur as a result of leaving the hospital at this time. Patient verbalizes understanding of risks involved due to leaving against medical advice. Patient has singned AMA form. NIHSS - ED NIH Stroke Scale: NIH Stroke Scale Response (Comments) Value Level of Consciousness: 0 Alert/Responsive 0 LOC Questions: 0 Answers both correctly 0 Best Gaze: 0 Normal 0 Visual: 0 No visual loss 0 Facial Palsy: 1 Minor paralysis 1 Motor - Left Arm 0 No drift 0 Motor - Right Arm 0 No drift 0 Motor - Left Leg 0 No drift 0 Motor: Right Leg 0 No drift 0 Limb Ataxia: 0 Absent 0 Sensory: 0 No loss 0 Best Language: 0 Normal 0 Dysathria: 0 Normal 0 Extinction and Inattention: 0 Normal 0 Total 1 Problem Qualifiers Primary Impression: Stroke CVA mechanism: unspecified Qualified Codes: I63.9 - Cerebral infarction, unspecified TOO BLACKMON MENTAL HEALTH PROGRAM MANAGER Aug 19, 2020 20:38
[2020-08-19 21:10] VITALS: BP 142/79
--- NOTE | 2020-08-20 07:11 | PHYS DOC ---
General Chief Complaint: FACE PROBLEM Stated Complaint: FACIAL SWELLING Time Seen by MD: 07:10 History of Present Illness Allergies: Coded Allergies: Cephalexin Monohydrate (Verified Allergy, Intermediate, Rash, 07/15/20) enoxaparin sodium (Verified Allergy, Intermediate, Rash, 07/15/20) clindamycin (Verified Allergy, Mild, Rash, 07/15/20) Past Medical History Surgical History: noncontributory, other Attending Signature Attending Signature I have participated in the care of this patient and I have reviewed and agree with all pertinent clinical information above including history, exam, and recommendations. HERIBERTO GARCIA MD Aug 20, 2020 07:11
--- NOTE | 2020-08-20 08:36 | EKG ---
[address] [address] Test Date: 2020-08-19 Test Time: 18:49:54 Pat Name: RICHARD STRICKLAND Department: Room: Gender: F Travel Physical Therapist: KIMBERLY : 1980 Requested By: TOO BLACKMON Order Number: [id number] Reading MD: Measurements Intervals [place] Rate: 74 P: 43 LA: 136 QRS: 45 QRSD: 84 T: 31 QT: 388 QTc: 431 Interpretive Statements SINUS RHYTHM NO SPECIFIC ECG ABNORMALITIES RI6.02 No previous ECG available for comparison
--- NOTE | 2020-08-22 21:21 | PHYS DOC ---
General Chief Complaint: FACE PROBLEM Stated Complaint: FACIAL SWELLING Time Seen by MD: 07:10 History of Present Illness Allergies: Coded Allergies: Cephalexin Monohydrate (Verified Allergy, Intermediate, Rash, 07/15/20) enoxaparin sodium (Verified Allergy, Intermediate, Rash, 07/15/20) clindamycin (Verified Allergy, Mild, Rash, 07/15/20) Past Medical History Surgical History: noncontributory, other Attending Co-Sign Attending Co-Sign The patient was seen and interviewed as well as examined at the bedside. The chart was reviewed. The case was discussed. Agree with the plan of care. HERIBERTO GARCIA MD Aug 22, 2020 21:21
== END 2020-08-19 21:35 | disposition home or self-care (01) ==
LOC: ER 18:06
DX: I63.9 Cerebral infarction, unspecified (principal); Q67.0 Congenital facial asymmetry; E11.9 Type 2 diabetes mellitus without complications; E78.00 Pure hypercholesterolemia, unspecified; I10 Essential (primary) hypertension; E03.9 Hypothyroidism, unspecified; G43.909 Migraine, unspecified, not intractable, without status migrainosus; F17.200 Nicotine dependence, unspecified, uncomplicated; F41.9 Anxiety disorder, unspecified; F31.9 Bipolar disorder, unspecified; Z86.718 Personal history of other venous thrombosis and embolism; Z88.1 Allergy status to other antibiotic agents; Z88.8 Allergy status to other drugs, medicaments and biological substances
CPT/HCPCS: 36415; 70450; 71046; 80053; 84484; 85025; 85610; 85730; 93005; 99285-25

== ENCOUNTER 2020-11-30 12:16 | Emergency (ER) | payer MEDICARE, OTHER ==
[~2020-11-30] VITALS: Ht 167.6 cm; Wt 105.0 kg
[~2020-11-30 12:16] MED LIST changes: -LISI-338 PO; +LISI-517 PO; +LISI10TA16 PO; -LISI10TA2 PO
--- NOTE | 2020-11-30 12:50 | PHYS DOC ---
Past History Past Medical History: Anxiety, Bipolar, Cancer, Diverticulitis, Diabetes, DVT, Gallstones, High Cholesterol, Hypertension, Hypothyroid, Migraines Additional Past Medical Histor: RUE lymphedema; chronic elevated CK; PE; PTEN genetic mutation (TOO BLACKMON APRN) Past Surgical History: Cancer Surgery, Cholecystectomy, Colectomy, Hysterectomy, Oophorectomy, Other Additional Past Surgical Histo: brain tumor; thyroidectomy; breast reconstruction; flap graft (TOO BLACKMON APRN) Smoking: Less than 1pk/day Alcohol Use: None Drug Use: Marijuana (TOO BLACKMON APRN) Adult General Chief Complaint Chief Complaint: SEIZURE HPI HPI Patient is a 40-year-old female presents to the emergency department stating that at approximately 1030 this morning her daughter noticed her having left eye twitching with confusion, daughter called patient's who arrived at home at 11 AM and found the patient normal without complaints. Patient states she does not remember this episode. Patient states she has a history of migraines and had a recent EEG in September 2020 at [facility], was told that she was having seizures and was started on Keppra 500 mg twice daily. Patient currently denies headaches, recent fever or chills, visual disturbances however states she is supposed to wear glasses, is not wearing them at this time and has blurriness that is at baseline per her statement. Patient denies nasal congestion, cough, chest pain, chest congestion, shortness of breath, abdominal pain, nausea, vomiting, diarrhea, urinary tract infection type signs and symptoms. Patient reports being a type II diabetic, has not checked her blood sugar this morning. Patient states she is on Coumadin for history of DVT and pulmonary emboli from 2012 and 2011 respectively, states she had a PT/INR drawn 4 days ago and her primary care doctor's office stating her level was 2.8. Patient reports a history of seizures, migraine headaches, blasto glioma surgery, endochondroma surgery, bilateral mastectomy related to breast cancer, breast reconstruction, colon resection 8 inches removed in 2011, cholecystectomy and 2012, total hyst erectomy, thyroidectomy. Patient reports allergies to clindamycin, Lovenox, Keflex. Patient states she sees a Dr. Reeves at the [facility], primary care Dr. Brannon at , neurology at Dr. Fraser. Patient denies any other physical complaints or physical concerns. (TOO BLACKMON APRN) Review of Systems Review of Systems 14 body systems of review of systems have been reviewed. See HPI for pertinent positives and negative responses, otherwise all other systems are negative, nonpertinent or noncontributory. (TOO BLACKMON APRN) Allergies Allergies Allergies Coded Allergies Type Severity Reaction Last Updated Verified Cephalexin Monohydrate Allergy Intermediate Rash 07/15/20 Yes enoxaparin sodium Allergy Intermediate Rash 07/15/20 Yes clindamycin Allergy Mild Rash 07/15/20 Yes (TOO BLACKMON APRN) Physical Exam Physical Exam Constitutional: Well developed, well nourished, no acute distress, non-toxic appearance. 40-year-old female in no apparent distress. HENT: Normocephalic, atraumatic, bilateral external ears normal, oropharynx moist, no oral exudates, nose normal. Oropharynx moist, no infectious process appreciated of the oropharynx, no lymphadenopathy of the head or neck. Bilateral TMs within normal limits, no drainage appreciated and bilateral external auditory canals Eyes: PERRLA, EOMI, conjunctiva normal, no discharge. Neck: Normal range of motion, no tenderness, supple, no stridor. No C-spine spinal tenderness, no meningismus signs, no nuchal rigidity appreciated. Cardiovascular:Heart rate regular rhythm, heart sounds S1-S2 to auscultation. Lungs & Thorax: Bilateral breath sounds clear to auscultation, no adventitious lung sounds appreciated. Abdomen: Bowel sounds normal, soft, no tenderness, no masses, no pulsatile masses. Skin: Warm, dry, no erythema, no rash. Back: No tenderness to palpation along vertebral column bony prominences or adjacent structures of the back. Extremities: No tenderness, no cyanosis, no clubbing, ROM intact, no edema. Except for right upper extremity, history of lymphedema, patient states her right upper extremity swelling is at baseline. Distal cap refill less than 2 seconds, +2/4 pulses. No decreased sensation of her extremities. Neurologic: Alert and oriented X 3, normal motor function, normal sensory function, no focal deficits noted. Psychologic: Affect normal, judgement normal, mood normal. (TOO BLACKMON APRN) Current Patient Data Lab Results Laboratory Tests Test 11/30/20 12:45 Glucose (Fingerstick) 151 mg/dL (70-99) H (TOO BLACKMON APRN) EKG EKG [] (TOO BLACKMON APRN) Radiology/Procedures Radiology/Procedures PATIENT: RICHARD STRICKLAND ACCOUNT: [id number] : 1980 LOCATION: ER AGE: 40 SEX: F EXAM STATUS: REG ER ORD. PHYSICIAN: TOO BLACKMON APRN REASON: SEIZURE ACTIVITY. HX OF RT SIDED GLIOMA. PROCEDURE: CT HEAD WO CONTRAST PQRS Compliance Statement: One or more of the following individualized dose reduction techniques were utilized for this examination: 1. Automated exposure control 2. Adjustment of the mA and/or kV according to patient size 3. Use of iterative reconstruction technique CT HEAD WITHOUT CONTRAST History: Reason: SEIZURE ACTIVITY. HX OF RT SIDED GLIOMA. Comparison: CT head without contrast August 19, 2020. Procedure: Axial images are obtained of the head from the skull base through the vertex without IV contrast. Findings: Midline right frontal encephalomalacia is stable. The ventricles and sulci are normal for the patient's age. No mass-effect, midline shift, hemorrhage, extra-axial fluid collection, or obvious acute infarction is identified. Basilar cisterns are patent. Bone windows demonstrate no acute calvarial abnormality.. Bilateral frontal craniotomy changes are redemonstrated. The visualized paranasal sinuses are clear. Mastoid air cells are well aerated. IMPRESSION: 1. No acute intracranial abnormality. 2. Stable near midline right frontal lobe encephalomalacia. Electronically signed by: Smith Rodriguez MD (11/30/2020 1:25 PM) [id number] DICTATED AND SIGNED BY: SMITH RODRIGUEZ MD DATE: 11/30/20 1321 CC: TOO BLACKMON APRN; COREEN GILES DO; LEIGH COLLINS ~MTH0 0 (TOO BLACKMON APRN) Heart Score C/O Chest Pain: No Risk Factors: Risk Factors: DM, Current or recent (<one month) smoker, HTN, HLP, family history of CAD, obesity. Risk Scores: Risk Factors: DM, Current or recent (<one month) smoker, HTN, HLP, family histo ry of CAD, obesity. (TOO BLACKMON APRN) Course & Med Decision Making Course & Med Decision Making Pertinent Labs and Imaging studies reviewed. (See chart for details) 40-year-old female, vital signs reviewed, presents to the emergency department concerning of seizure-like activity. Patient's description of seizure consistent with focal type/absence seizure, physical examination was unremarkable. ED plan serum labs CBC, CMP, Keppra level, PT/INR, CT head without contrast. Will reevaluate patient pending labs and CT results. Patient's fingerstick blood glucose during physical examination equaled 151. Still pending Keppra level and TSH level, other labs equivocal, CT head interpreted by house radiologist, no acute findings. Discussed with patient need to continue medication regimen as directed by her primary care physician and neurology specialist. Discussed with patient to call her neurologist today to tell them of the events that happened and you were seen in the emergency department. Discussed with patient strict no driving motor vehicle or heavy machinery until told otherwise by primary care and neurology specialist. Upon reexamination of the patient, patient had no further seizure-like activity, s tates that she continues to feel fine, patient is in no apparent distress, patient is nontoxic in appearance. Patient gave verbal understanding of discharge home instructions, strict no driving motor vehicle or heavy machinery until released by primary care and neurologist, follow-up with neurology and primary care will call them today, return to ER precautions have concerns, patient discharged home. (TOO BLACKMON APRN) Course & Med Decision Making I oversaw on the above date of service of this patient and discussed the care with the [employer]. I agree with the findings, plan of care, and disposition as documented. Patient well-appearing without gait abnormalities or other focal neurologic deficits. She needs to follow-up with her neurologist at [facility]. No further diagnostic work-up in ER indicated at present Electronically signed, Coreen Giles DO (COREEN GILES DO) Elias Disclaimer Dragon Disclaimer This electronic medical record was generated, in whole or in part, using a voice recognition dictation system. (TOO BLACKMON APRN) Departure Departure: Impression: Primary Impression: Seizure Disposition: 01 DC HOME SELF CARE/HOMELESS Condition: GOOD Referrals: LEIGH COLLINS (PCP) Patient Instructions: Seizure, Adult Additional Instructions: Please call your neurologist today and let them know the events that happened. Do not drive a motor vehicle or heavy machinery until otherwise directed by your primary care doctor and your neurologist. Continue taking your medications as directed by your primary care doctor and your neurology specialist. Return to the emergency department for worsening symptoms or other concerns. EMERGENCY DEPARTMENT GENERAL DISCHARGE INSTRUCTIONS Thank you for coming to [facility] (ED) today and trusting us with you care. We trust that you had a positivie experience in our Emergency Department. If you wish to speak to the department management, you may call the director at [phone]. YOUR FOLLOW UP INSTRUCTIONS ARE FOLLOWS: 1. Do you have a private Doctor? If you do not have a private doctor, please ask for a resource list of physicians or clinics that may be able to assist you with follow up care. 2. The Emergency Physician has interpreted your x-rays. The X-Ray specialist will also review them. If there is a change in the findings, you will be notified in 48 hours when at all possible. 3. A lab test or culture has been done, your results will be reviewed and you will be notified if you need a change in treatment. ADDITIONAL INSTRUCTIONS AND INFORMATION: 1. Your care today has been supervised by a physician who is specially trained in emergency care. Many problems require more than one evaluation for a complete diagnosis and treatment. We recommend that you schedule your follow up appointment as recommended to ensure complete treatment of you illness or injury. If you are unable to obtain follow up care and continue to have a problem, or if your condition worsens, we recommend that you return to the ED. 2. We are not able to safely determine your condition over the phone nor are we able to give sound medical advice over the phone. For these safety reasons, if you call for medical advice we will ask you to come to the ED for further evaluation. 3. If you have any questions regarding these discharge instructions please call the ED at [phone]. SAFETY INFORMATION: In the interest of safety, wellness, and injury prevention; we encourage you to wear your sealbelt, if you smoke; quite smoking, and we encourage family to use a protective helmet for bicycling and other sporting events that present an increased risk for head injury. IF YOUR SYMPTOMS WORSEN OR NEW SYMPTOMS DEVELOP, OR YOU HAVE CONCERNS ABOUT YOUR CONDITION; OR IF YOUR CONDITION WORSENS WHILE YOU ARE WAITING FOR YOUR FOLLOW UP APPOINTMENT; EITHER CONTACT YOUR PRIMARY CARE DOCTOR, THE PHYSICIAN WHOSE NAME AND NUMBER YOU WERE GIVEN, OR RETURN TO THE ED IMMEDIATELY. TOO BLACKMON APRN Nov 30, 2020 12:50 COREEN GILES DO Dec 01, 2020 06:22
[2020-11-30 13:16] LABS: BASO # 0.1 x10^3/uL (0.0-0.2); BASO % 1 % (0-3); EOS # 0.1 x10^3/uL (0.0-0.7); EOS % 2 % (0-3); HEMATOCRIT 42.4 % (36.0-47.0); HEMOGLOBIN 14.1 g/dL (12.0-15.5); LYMPH # 2.4 x10^3/uL (1.0-4.8); LYMPH % 35 % (24-48); MEAN CORPUSCULAR HEMOGLOBIN 30 pg (25-35); MEAN CORPUSCULAR HGB CONC 33 g/dL (31-37); MEAN CORPUSCULAR VOLUME 89 fL (79-100); MONO # 0.6 x10^3/uL (0.0-1.1); MONO % 9 % (0-9); NEUT # 3.5 x10^3uL (1.8-7.7); NEUT % 53 % (31-73); PLATELET COUNT 289 x10^3/uL (140-400); RED BLOOD COUNT 4.74 x10^6/uL (3.50-5.40); RED CELL DISTRIBUTION WIDTH 14.1 % (11.5-14.5); WHITE BLOOD COUNT 6.7 x10^3/uL (4.0-11.0)
[2020-11-30 13:21] LABS: CALCIUM 9.1 mg/dL (8.5-10.1); GFR 61.7; POTASSIUM 4.3 mmol/L (3.5-5.1)
[2020-11-30 13:27] LABS: ALBUMIN 3.6 g/dL (3.4-5.0); ALBUMIN/GLOBULIN RATIO 0.9 (1.0-1.7); TOTAL BILIRUBIN 0.3 mg/dL (0.2-1.0); TOTAL PROTEIN 7.7 g/dL (6.4-8.2)
--- NOTE | 2020-11-30 13:28 | RAD ---
PQRS Compliance Statement: One or more of the following individualized dose reduction techniques were utilized for this examinat ion: 1. Automated exposure control 2. Adjustment of the mA and/or kV according to patient size 3. Use of iterative reconstruction technique CT HEAD WITHOUT CONTRAST History: Reason: SEIZURE ACTIVITY. HX OF RT SIDED GLIOMA. Comparison: CT head without contrast August 19, 2020. Procedure: Axial images are obtained of the head from the skull base through the vertex without IV co ntrast. Findings: Midline right frontal encephalomalacia is stable. The ventricles and sulci are normal for the patient 's age. No mass-effect, midline shift, hemorrhage, extra-axial fluid collection, or obvious acute infarction is identified. Basilar cisterns are patent. Bone windows demonstrate no acute calvarial abnormality.. Bilateral frontal craniotomy changes are re demonstrated. The visualized paranasal sinuses are clear. Mastoid air cells are well aerated. IMPRESSION: 1. No acute intracranial abnormality. 2. Stable near midline right frontal lobe encephalomalacia. Electronically signed by: Smith Rodriguez MD (11/30/2020 1:25 PM) [id number]
[2020-11-30 14:07] VITALS: BP 122/92
== END 2020-11-30 15:05 | disposition home or self-care (01) ==
LOC: ER 12:16
DX: R56.9 Unspecified convulsions (principal); G43.909 Migraine, unspecified, not intractable, without status migrainosus; H57.89 Other specified disorders of eye and adnexa; R41.0 Disorientation, unspecified; F41.9 Anxiety disorder, unspecified; F31.9 Bipolar disorder, unspecified; E78.00 Pure hypercholesterolemia, unspecified; I10 Essential (primary) hypertension; E03.9 Hypothyroidism, unspecified; E11.9 Type 2 diabetes mellitus without complications; F17.200 Nicotine dependence, unspecified, uncomplicated; Z90.710 Acquired absence of both cervix and uterus; Z90.89 Acquired absence of other organs; Z98.890 Other specified postprocedural states; Z88.1 Allergy status to other antibiotic agents; Z88.8 Allergy status to other drugs, medicaments and biological substances
CPT/HCPCS: 36415; 70450; 80053; 82947; 84443; 85025; 85610; 85730; 99284

== ENCOUNTER 2021-01-29 14:10 | Emergency (ER) | payer MEDICARE, OTHER ==
[~2021-01-29] VITALS: Ht 167.6 cm; Wt 97.7 kg
[2021-01-29 15:10] LABS: BASO # 0.1 x10^3/uL (0.0-0.2); BASO % 1 % (0-3); EOS # 0.3 x10^3/uL (0.0-0.7); EOS % 4 % (0-3); HEMATOCRIT 38.3 % (36.0-47.0); HEMOGLOBIN 12.9 g/dL (12.0-15.5); LYMPH # 3.7 x10^3/uL (1.0-4.8); LYMPH % 49 % (24-48); MEAN CORPUSCULAR HEMOGLOBIN 30 pg (25-35); MEAN CORPUSCULAR HGB CONC 34 g/dL (31-37); MEAN CORPUSCULAR VOLUME 91 fL (79-100); MONO # 0.8 x10^3/uL (0.0-1.1); MONO % 11 % (0-9); NEUT # 2.7 x10^3uL (1.8-7.7); NEUT % 35 % (31-73); PLATELET COUNT 327 x10^3/uL (140-400); RED BLOOD COUNT 4.23 x10^6/uL (3.50-5.40); RED CELL DISTRIBUTION WIDTH 14.1 % (11.5-14.5); WHITE BLOOD COUNT 7.6 x10^3/uL (4.0-11.0)
[2021-01-29 15:15] LABS: FECAL OB PT POSITIVE (NEG)
[2021-01-29 15:17] VITALS: BP 137/87
[2021-01-29] MEDS ORDERED: HYDR25SU18 RC (15:18)
--- NOTE | 2021-01-29 15:18 | PHYS DOC ---
Past History Past Medical History: DVT, Hypertension, Other Additional Past Medical Histor: bilateral PE, lymphedema, HLD, pre DM, PTSD, R glioma, multiple encondromas Past Surgical History: Cholecystectomy, Colectomy, Hysterectomy, Other Additional Past Surgical Histo: double masectomy, FLAP procedure, thyroidectomy Smoking: Less than 1pk/day Alcohol Use: None Drug Use: Marijuana General Adult EDM: Chief Complaint: RECTAL BLEED HPI: HPI: Patient is a [age] year old [sex] who presents with [] Review of Systems: Review of Systems: Constitutional: Denies fever or chills Eyes: Denies redness or eye pain HENT: Denies nasal congestion or sore throat Respiratory: Denies cough or shortness of breath Cardiovascular: Denies chest pain or palpitations GI: Denies abdominal pain, nausea, or vomiting : Denies dysuria or hematuria Musculoskeletal: Denies back pain or joint pain Integument: Denies rash or skin lesions Neurologic: Denies headache, focal weakness or sensory changes Complete systems were reviewed and found to be within normal limits, except as documented in this note. Allergies: Allergies: Allergies Coded Allergies Type Severity Reaction Last Updated Verified Cephalexin Monohydrate Allergy Intermediate Rash 07/15/20 Yes enoxaparin sodium Allergy Intermediate Rash 07/15/20 Yes clindamycin Allergy Mild Rash 07/15/20 Yes Physical Exam: PE: Constitutional: Well developed, well nourished, no acute distress, non-toxic appearance HENT: Normocephalic, atraumatic Eyes: PERRL, EOMI, conjunctiva normal, no discharge Neck: Normal range of motion, no tenderness, supple Lungs & Thorax: No respiratory distress, equal chest rise and fall Abdomen: Soft, no tenderness Skin: Warm, dry, no erythema, no rash Back: No tenderness, no CVA tenderness Extremities: No tenderness, ROM intact, no edema Neurologic: Alert and oriented X 3, normal motor function, normal sensory function, no focal deficits noted Psychologic: Affect normal, judgment normal Current Patient Data: Labs: Laboratory Tests Test 01/29/21 14:40 01/29/21 14:47 Stool Occult Blood Positive (NEG) White Blood Count 7.6 x10^3/uL (4.0-11.0) Red Blood Count 4.23 x10^6/uL (3.50-5.40) Hemoglobin 12.9 g/dL (12.0-15.5) Hematocrit 38.3 % (36.0-47.0) Mean Corpuscular Volume 91 fL (79-100) Mean Corpuscular Hemoglobin 30 pg (25-35) Mean Corpuscular Hemoglobin Concent 34 g/dL (31-37) Red Cell Distribution Width 14.1 % (11.5-14.5) Platelet Count 327 x10^3/uL (140-400) Neutrophils (%) (Auto) 35 % (31-73) Lymphocytes (%) (Auto) 49 % (24-48) H Monocytes (%) (Auto) 11 % (0-9) H Eosinophils (%) (Auto) 4 % (0-3) H Basophils (%) (Auto) 1 % (0-3) Neutrophils # (Auto) 2.7 x10^3uL (1.8-7.7) Lymphocytes # (Auto) 3.7 x10^3/uL (1.0-4.8) Monocytes # (Auto) 0.8 x10^3/uL (0.0-1.1) Eosinophils # (Auto) 0.3 x10^3/uL (0.0-0.7) Basophils # (Auto) 0.1 x10^3/uL (0.0-0.2) Vital Signs: Vital Signs Date Time Temp Pulse Resp B/P (MAP) Pulse Ox O2 Delivery O2 Flow Rate FiO2 01/29/21 14:25 98.1 81 18 131/79 (96) 98 Room Air EKG: EKG: [] Radiology/Procedures: Radiology/Procedures: [] Heart Score: C/O Chest Pain: N/A Course & Med Decision Making: Course & Med Decision Making Pertinent Lab studies reviewed. (See chart for details) Patient stable for discharge with outpatient follow-up with PCP. Discussed findings and plan with patient, who acknowledges understanding and agreement. Elias Disclaimer: Elias Disclaimer: This electronic medical record was generated, in whole or in part, using a voice recognition dictation system. Departure Departure: Impression: Primary Impression: Rectal bleeding Disposition: HOME / SELF CARE / HOMELESS Condition: STABLE Referrals: LEIGH COLLINS (PCP) Patient Instructions: Rectal Bleeding, [id number] Scripts Hydrocortisone Acetate (ANUSOL-HC) 25 Mg Supp.rect 1 SUPP RC BID for Hemorrhoids for 7 Days, #14 SUPP 0 Refills Prov: TOO SIMPSON DO 01/29/21 TOO SIMPSON DO January 29, 2021 15:18
== END 2021-01-29 15:25 | disposition home or self-care (01) ==
LOC: ER 14:10
DX: K62.5 Hemorrhage of anus and rectum (principal); I10 Essential (primary) hypertension; F17.200 Nicotine dependence, unspecified, uncomplicated; E78.5 Hyperlipidemia, unspecified; Z86.718 Personal history of other venous thrombosis and embolism; Z86.711 Personal history of pulmonary embolism; Z90.49 Acquired absence of other specified parts of digestive tract; Z90.710 Acquired absence of both cervix and uterus; Z88.1 Allergy status to other antibiotic agents; Z88.8 Allergy status to other drugs, medicaments and biological substances
CPT/HCPCS: 36415; 82274; 85025; 99283